=== PATIENT | female | born 2000 | race Two or more races ===

== ENCOUNTER 2025-01-20 08:37 | Outpatient (OUT) | payer MEDICAID, SELFPAY ==
--- OUTSIDE RECORDS SUMMARY | 2024-12-23 13:00 | XMS_ITS | Encounter Summary ---
Author Organization [facility] Address [address] [place] [address] Care Team Providers Care Associate Veterinarian Name Role Phone Tracy Quesada MD Primary Care Provider [phone] Reason for Visit * Reason Comments Routine Visit Encounter Details Date Type Department Care Team (Late st Contact Info) Description 12/23/2024 1:00 PM EDT Routine [facility] [address] [place] [address] Petty Baez, GENA [address] [facility] [place] [address] Second trimester ([facility]); 14 weeks gestation of ([facility]); Screening, , for anatomic survey ([facility]); Ovarian cyst, right Social History Tobacco Use Types Packs/Day Years Used Date Smoking Tobacco: Never Smokeless Tobacco: Never Alcohol Use Standard Drinks/Week Comments Not Currently 0 (1 standard drink = 0.6 oz pur e alcohol) Estimated Date of Delivery Comme nts Yes 05/30/2025 Based on last me nstrual period of 08/23/2024 Sex and Gender Information Value Date Recorded Sex Assigned at Not on file Legal Sex Female 10:12 PM EDT Gender Identity Not on file Sexual Orientation Not on file documented as of this encounter Last Filed Vital Signs Vital Sign Reading Time Taken Comments Blood Pressure 108/68 12/23/2024 1:17 PM EDT Pulse - - Temperature - - Respiratory Rate - - Oxygen Saturation - - Inhaled Oxygen Concentration - - Weight 86.5 kg (190 lb 12.8 oz) 12/23/2024 1:17 PM EDT Height - - Body Mass Index 29.88 11/26/2023 10:35 AM EDT documented in this encounter Progress Notes * Petty Baez NP - 12/23/2024 1:00 PM EDT Reason for Appointment: Patient ID: Gretel Otoole is a 24 y.o. female who presents for Routine Visit Patient presents today for Return OB appointment. MEDICATIONS Current Outpatient Medications Medication Instructions MV-Min-Fe Fum-FA-DHA ( 1 PO) Take by mouth ALLERGIES No Known Allergies PROBLEMS Active Ambulatory Problems Diagnosis Date Noted No Active Ambulatory Problems Resolved Ambulatory Problems Diagnosis Date Noted No Resolved Ambulatory Problems Past Medical History: Diagnosis Date Hypertension HISTORY PAST MEDICAL HISTORY SOCIAL HISTORY Past Medical History: Diagnosis Date Hypertension Social History Tobacco Use Smoking status: Never Smokeless tobacco: Never Substance Use Topics Alcohol use: Not Currently Drug use: Never FAMILY HISTORY No family history on file. SURGICAL HISTORY No past surgical history on file. REVIEW OF SYSTEMS Review of Systems: Review of Systems Constitutional: Negative. HENT: Negative. Eyes: Negative. Respiratory: Negative. Cardiovascular: Negative. Gastrointestinal: Negative. Genitourinary: Negative. Musculoskeletal: Positive for back pain. Patient with complaints of left low back pain Skin: Negative. Neurological: Negative. All other systems reviewed and are negative. Hematological: Negative. Endocrine: Negative. Allergic/Immunologic: Negative. OBJECTIVE Objective: Physical Exam Constitutional: Appearance: Normal appearance. She is well-developed. Cardiovascular: Rate and Rhythm: Normal rate and regular rhythm. Pulmonary: Effort: Pulmonary effort is normal. Breath sounds: Normal breath sounds. Abdominal: General: Bowel sounds are normal. There is no distension. Palpations: Abdomen is soft. Tenderness: There is no abdominal tenderness. There is no guarding or rebound. Musculoskeletal: General: No swelling. Right lower leg: No edema. Left lower leg: No edema. Comments: Tenderness with palpation to left paraspinal muscles without spinous process tenderness. Neurological: Mental Status: She is alert and oriented to person, place, and time. Skin: General: Skin is warm and dry. Psychiatric: Mood and Affect: Mood normal. Behavior: Behavior normal. Vitals and nursing note reviewed. Exam conducted with a voip technician present. Vitals: Estimated body mass index is 29.88 kg/m?? as calculated from the following: Height as of 24: 5' 7 . Weight as of this encounter: 190 lb 12.8 oz. BP: 108/68 Patient's last menstrual period was 08/23/2024. ASSESSMENT & PLAN ICD-10-CM 1. Second trimester ([facility]) Z34.92 POCT urinalysis dipstick manually resulted 2. 14 weeks gestation of ([facility]) Z3A.14 POCT urinalysis dipstick manually resulted 3. Screening, , for anatomic survey ([facility]) Z36.89 US OB 14+ weeks anatomy scan Return OB: Patient presents today for a routine obstetrics appointment. Patient is currently 17w3d . Patient states she is doing well but has complaints of being tired due to current . Patient has verbalizes frequent movement. labor precautions was discussed/given and patient was instructed to perform kick counts three times a day. Orders Placed This Encounter Procedures US OB 14+ weeks anatomy scan POCT urinalysis dipstick manually resulted Follow Up: Patient with left low back pain that is reproducible with palpation. She has no CVA tenderness and no spinous process tenderness. Musculoskeletal low back pain recommend Physical Therapy evaluation and treatment. Patient is to return to office in 4 week for routine OB appointment. Documented by Petty Baez NP on behalf of: Petty Baez NP documented in this encounter Miscellaneous Notes * Addendum Note - Derrick Oneill LPN - 12/23/2024 1:00 PM EDTAddended by: DERRICK ONEILL on: 01/18/2025 03:50 PM Modules accepted: Orders documented in this encounter Plan of Treatment Upcoming Encounters Date Type Department Care Team (Late st Contact Info) Description 01/20/2025 10:20 AM EDT Routine [facility] [address] [place] [address] Petty Baez NP [address] [place] [address] Scheduled Orders Name Type Priority Associated Diagnoses Orde r Schedule US OB 14+ weeks anatomy scan Imaging Routine Screening, , for anatomic survey ([facility]) Expected: 12/23/2024, Expires: 03/24/2025 US Pelvis w/ TV Imaging Routine Ovarian cyst, right Expected: 01/18/2025, Expires: 07/18/2025 documented as of this encounter Visit Diagnoses Diagnosis Second trimester ([facility]) state, incidental 14 weeks gestation of ([facility]) Screening, , for anatomic survey ([facility]) Encounter for anatomic survey Ovarian cyst, right Other and unspecified ovarian cyst documented in this encounter Care Teams Associate Veterinarian Relationship Specialty Start Date End Date Tracy Quesada MD [address] [place] [id number] PCP - General Family Medicine 11/26/23 documented as of this encounter
--- OUTSIDE RECORDS SUMMARY | 2025-01-20 08:40 | XMS_ITS | Patient Health Record ---
Author Organization [employer] Address [address] [place] [address] Care Team Providers Care Sociology Research Assistant Name Role Phone Mandy Ag Primary Care Provider Reason For Referral No Information Plan Of Treatment No Information Insurance Providers Payer Name Payer Address Payer Phone Subscriber Number Group Number Insured Name Patient Relationship to Insured Coverage Start Date Coverage End Date [employer] [place] [address] [place] [address] [id number] YOUSUF MARTINEZ Self - patient is the insured 3 [employer] [facility] [employer] [address] [place] [address] [phone] [id number] YOUSUF MARTINEZ Self - patient is the insured 3 Dental [employer] [place] [address] [place] [address] [id number] YOUSUF MARTINEZ Self - patient is the insured 3 Dental [employer] [facility] [employer] [address] [place] [address] [id number] YOUSUF MARTINEZ Self - patient is the insured 3
--- OUTSIDE RECORDS SUMMARY | 2025-01-20 08:40 | XMS_ITS | Clinical Summary ---
Author Organization [facility] Address [address] [place] [address] Care Team Providers Care Tafe Teacher Name Role Phone Tracy Quesada MD Primary Care Provider [phone] Allergies No known active allergies Medications MV-Min-Fe Fum-FA-DHA ( 1 PO) Take by mouth Active Encounters Date Type Department Care Team Description 01/19/2025 Travel 12/23/2024 1:00 PM ED[place] [address] Petty Baez NP Second trimester ([facility]); 14 weeks gestation of ([facility]); Screening, , for anatomic survey ([facility]); Ovarian cyst, right 12/23/2024 Bamboo flowsheet [facility] [address] [place] [address] Petty Baez NP 12/16/2024 10:00 AM EDT Ancillary Procedure [facility] [address] [place] [address] Ovarian cyst, right 12/09/2024 Travel 12/09/2024 Telephone [facility] [address] [place] [address] Sherita Bowers MA 11/25/2024 Travel 11/15/2024 [place] [phone] Yonas Gold, 11/15/2024 Telephone [facility] [address] [facility] [address] Dinah LeonJABIER 11/05/2024 9:30 AM EDT Initial [facility] [address] [place] [address] [place]: 10w4d 11/05/2024 9:00 AM EDT Ancillary Procedure [facility] [address] [place] [address] Missed menses 11/05/2024 Abstract [facility] [address] [facility] [address] Yonas Gold, 11/02/2024 Travel from Last 3 Months Social History Tobacco Use Types Packs/Day Years Used Date Smoking Tobacco: Never Smokeless Tobacco: Never Tobacco Cessation:Counseling Given: Not Answered Alcohol Use Standard Drinks/Week Comments Not Currently 0 (1 standard drink = 0.6 oz pur e alcohol) Estimated Date of Delivery Comme nts Yes 05/30/2025 Based on last me nstrual period of 08/23/2024 Sex and Gender Information Value Date Recorded Sex Assigned at Not on file Legal Sex Female 10:12 PM EDT Gender Identity Not on file Sexual Orientation Not on file Last Filed Vital Signs Vital Sign Reading Time Taken Comments Blood Pressure 108/68 12/23/2024 1:17 PM EDT Pulse 70 11/26/2023 10:35 AM EDT Temperature - - Respiratory Rate - - Oxygen Saturation - - Inhaled Oxygen Concentration - - Weight 86.5 kg (190 lb 12.8 oz) 12/23/2024 1:17 PM EDT Height 170.2 cm (5' 7 ) 11/26/2023 10:3 5 AM EDT Body Mass Index 29.88 11/26/2023 10:35 AM EDT Plan of Treatment Upcoming Encounters Date Type Department Care Team (Late st Contact Info) Description 01/20/2025 10:20 AM EDT Routine [facility] [address] [facility] [place] [address] Petty Baez, GENA [address] [facility] [place] [address] Procedures Procedure Name Priority Date/Time Associated Diagnosis Comments US PELVIS Routine 12/16/2024 10:42 AM EDT Ovarian cyst, right POCT , URINE Routine 11/05/2024 9:53 AM EDT Missed menses POCT URINALYSIS DIPSTICK Routine 11/05/2024 9:52 AM EDT Missed menses US OB TRANSVAGINAL Routine 11/05/2024 9: 14 AM EDT Missed menses from Last 3 Months Results * US pelvis (12/16/2024 10:42 AM EDT) Anatomical Region Laterality Modality Pelvis Ultrasound 12/16/2024 2:26 PM EDT Impressions 12/16/2024 2:54 PM EDT Right ovarian cyst, slight decrease in size from prior exam November 05, 2024. TRANSCRIBED BY: ELECTRONICALLY SIGNED BY: Geo Lopez MD Narrative 12/16/2024 2:54 PM EDT FINDINGS: Uterus 14.3 x 9.4 x 10.5 cm Right Ovary 6.0. x 4.1 x 5.4 cm Left Ovary 2.8 x 2.4 x 1.8 cm A single viable intrauterine gestational sac with a pole, ultrasound worksheet does not demonstrate evidence of lack of or cardiac activity. Normal placental formation. Right ovarian 6.2 x 3.7 x 5.4 cm cyst, no soft tissue component ,shadowing or increase in vascularity. Procedure Note Geo Lopez MD - 12/16/2024 FINDINGS: Uterus 14.3 x 9.4 x 10.5 cm Right Ovary 6.0. x 4.1 x 5.4 cm Left Ovary 2.8 x 2.4 x 1.8 cm A single viable intrauterine gestational sac with a pole, ultrasoundworksheet does not demonstrate evidence of lack of or cardiacactivity. Normal placental formation. Right ovarian 6.2 x 3.7 x 5.4 cmcyst, no soft tissue component ,shadowing or increase in vascularity. IMPRESSION: Right ovarian cyst, slight decrease in size from prior exam October. TRANSCRIBED BY: ELECTRONICALLY SIGNED BY: Geo Lopez MD us Yonas Alla DO IMG US PROCEDURES Final Result * (ABNORMAL) POCT , urine manually resulted (11/05/2024 9:53 AM EDT) Preg Test, Ur Positive Negative Urine 11/05/2024 9:53 AM EDT us Yonas Alla DO POINT OF CARE TEST ENTER/EDIT OR DERABLES Final Result * (ABNORMAL) POCT urinalysis dipstick manually resulted (11/05/2024 9:52 AM EDT) Color, UA Yellow Clarity, UA Clear Glucose, UA Negative Negative - 2000(110) ++++ mg/dL Bilirubin, UA Negative Negative - 4(70) +++ mg/dL Ketones, UA Negative Negative - 160(16) ++++ mg/dL Spec Grav, UA 1.020 1 - 1.03 Blood, UA Negative Negative - 50 Tal/mcL pH, UA 6.0 5 - 9 Protein, UA Trace Negative - 2000(20) ++++ mg/dL Urobilinogen, UA 0.2 0.2 - 12 mg/dL Leukocytes, UA Moderate Negative - 500+++ Pepe/mcL Nitrite, UA Negative Negative - Positive Urine 11/05/2024 9:52 AM EDT us Yonas Alla DO POINT OF CARE TEST ENTER/EDIT OR DERABLES Final Result * US OB transvaginal (11/05/2024 9:14 AM EDT) Anatomical Region Laterality Modality Body Ultrasound 11/09/2024 10:5 3 AM EDT Impressions 11/09/2024 11:24 AM EDT 1. Findings consistent with a live intrauterine gestation, current sonographic age of 10 weeks and 1 days resulting in an estimated date of delivery of June 03, 2025. 2. Right ovarian 9.0 cm benign cyst. TRANSCRIBED BY: ELECTRONICALLY SIGNED BY: Geo Lopez MD [facility] 11/09/2024 11:24 AM EDT FINDINGS: A single intrauterine gestational sac is present. No subchorionic hemorrhage. A single pole is present. Normal heart rate at 182 beats per minute. Yolk sac also is seen. Current sonographic age is 10 weeks and 1 days based on the crown-rump length measurement of 3.1 cm. Based on this age, current estimated date of delivery is June 03, 2025. No pelvic fluid or adnexal mass present. Cervical length is 3.5cm. Small amount of pelvic fluid. 7.5 x 9.0 cm right ovarian cyst, thin septation, no significant soft tissue component or shadowing. Procedure Note Geo Lopez MD - 11/09/2024 FINDINGS: A single intrauterine gestational sac is present. No subchorionichemorrhage. A single pole is present. Normal heart rate at182 beats per minute. Yolk sac also is seen. Current sonographic age is10 weeks and 1 days based on the crown-rump length measurement of 3.1 cm.Based on this age, current estimated date of delivery is May. No pelvic fluid or adnexal mass present. Cervical length is3.5cm. Small amount of pelvic fluid. 7.5 x 9.0 cm right ovarian cyst, thinseptation, no significant soft tissue component or shadowing. IMPRESSION: 1. Findings consistent with a live intrauterine gestation, currentsonographic age of 10 weeks and 1 days resulting in an estimated date ofdelivery of June 03, 2025. 2. Right ovarian 9.0 cm benign cyst. TRANSCRIBED BY: ELECTRONICALLY SIGNED BY: Geo Lopez MD us Yonas Gold DO [facility] OB US PROCEDURES Final Resul t from Last 3 Months Insurance MEDICAID [place] Care Teams Tafe Teacher Relationship Specialty Start Date End Date Tracy Quesada MD [address] [place] [phone] PCP - General Family Medicine 11/26/23
--- OUTSIDE RECORDS SUMMARY | 2025-01-20 08:40 | XMS_ITS | Encounter Summary ---
Author Organization [facility] Address [address] [place] [address] Care Team Providers Care Chicken Raiser Name Role Phone Tracy Quesada MD Primary Care Provider [phone] Encounter Details Date Type Department Care Team (Late Contact Info) Description 11/05/2024 Abstract [facility] [address] [place] [address] [place] [address] Yonas Gold DO [address] [facility] [address] [place], [place] [address] Social History Tobacco Use Types Packs/Day Years [...] on file documented as of this encounter Plan of Treatment Upcoming Encounters Date Type Department Care Team (Late st Contact Info) Description 01/20/2025 10:20 AM EDT Routine [facility] [address] [place], [place] [address] [address] Petty Baez, GENA [address] [facility] [place] [address] documented as of this encounter Visit Diagnoses Not on filedocumented in this encounter Care Teams Chicken Raiser Relationship Specialty Start Date End Date Tracy Quesada MD [address] [facility] [place] [phone] PCP - General Family Medicine 11/26/23 documented as of this encounter
--- OUTSIDE RECORDS SUMMARY | 2025-01-20 08:40 | XMS_ITS | Encounter Summary ---
Author Organization [facility] Address [address] [facility] [place] [address] Care Team Providers Care Christian Science Nurse Name Role Phone Tracy Quesada MD Primary Care Provider [phone] Encounter Details Date Type Department Care Team (Latest Contact Info) Description 01/19/2025 Travel Social History Tobacco Use Types Packs/Day Years [...] EDT Routine [facility] [address] [facility] [place] [address] Petty Baez NP [address] [facility] [place] [address] documented as of this encounter Visit Diagnoses Not on filedocumented in this encounter Care Teams Christian Science Nurse Relationship Specialty Start Date End Date Tracy Quesada MD [address] [place] [phone] PCP - General Family Medicine 11/26/23 documented as of this encounter
--- OUTSIDE RECORDS SUMMARY | 2025-01-20 08:40 | XMS_ITS | Encounter Summary ---
Author Organization [facility] Address [address] [facility] [place] [address] Care Team Providers Care Marker Delivery Name Role Phone Tracy Quesada MD Primary Care Provider [phone] Encounter Details Date Type Department Care Team (Late Contact Info) Description 11/26/2023 Abstract [facility] [address] [place] [address] Celso Rice, DPM FACFAS [address] [place] [id number] Social History Tobacco Use Types Packs/Day Years Used Date Smoking Tobacco: Never Smokeless Tobacco: Never Comments Unknown Sex and Gender Information Value Date Recorded Sex Assigned at Not on file Legal Sex Female 10:12 PM EDT Gender Identity Not on file Sexual Orientation Not on file documented as of this encounter Plan of Treatment Upcoming Encounters Date Type Department Care Team (Late Contact Info) Description 01/20/2025 10:20 AM EDT Routine [facility] [address] [facility] [place] [address] Petty Baez NP [address] [facility] [place] [address] documented as of this encounter Visit Diagnoses Not on filedocumented in this encounter Care Teams Marker Delivery Relationship Specialty Start Date End Date Tracy Quesada MD [address] [place] [address] PCP - General Family Medicine 11/26/23 documented as of this encounter
--- NOTE | 2025-01-20 08:42 | US_ITS ---
The [address] [address] Patient Name: YOUSUF MARTINEZ MRN: [facility]:[id number] date: 2000 Sex: F Assigned Patient Location: Current Patient Location: Accession/Order Number: [id number] Exam Date: 01/20/2025 08:43 Report Date: 01/20/2025 09:53 At the request of: TOSHIA TATE Procedure: US OB cervical length CLINICAL DATA: Anatomy survey COMPARISON: None ULTRASOUND OB ANATOMY There is a single live intrauterine gestation in cephalic presentation. There is cardiac and somatic activity with heart rate of 165 bpm. The amniotic fluid volume is subjectively normal. The placenta is posterior and fundal . It is normal in appearance. The neural axis and all 4 extremities were surveyed by the aviation project engineer and no abnormalities were detected. The stomach, bladder, kidneys, four-chamber heart with right and left ventricular outflow tracts, diaphragm, facial features and female gender are seen. The following measurements were obtained: Biparietal diameter 4.8 cm 20 weeks 4 days 19 % Head circumference 18.3 cm 20 weeks 5 days 13% Abdominal circumference 15.9 cm 21 weeks 0 days 31% Femur length 3.2 cm 20 weeks 0 days 5% The composite ultrasound age based on these measurements is 20 weeks 4 days +/- 1 week 3 days. The estimated date of delivery is 06/05/2025. The weight is approximately 13 ounces +/- 2 ounces (10%). US/US OB anatomy IMPRESSION: SINGLE LIVE INTRAUTERINE GESTATION WITH ULTRASOUND AGE OF 20 WEEKS 4 DAYS. ULTRASOUND OB CERVICAL LENGTH The cervix was evaluated with the transvaginal probe. It is closed and measures present 4.7 cm in length. There is no evidence of previa. IMPRESSION: NORMAL CLOSED CERVIX. Impression dictated by: Brenda Gibbs M.D. 01/20/2025 9:53 AM Dictation Location: [place] [address] Electronically authenticated by: [id number] Y Date: 01/20/2025 09:53
--- NOTE | 2025-01-20 08:42 | US_ITS ---
The [address] [address] Patient Name: YOUSUF MARITNEZ MRN: [facility]:[id number] date: 2000 Sex: F Assigned Patient Location: Current Patient Location: Accession/Order Number: [id number] Exam Date: 01/20/2025 08:43 Report Date: 01/20/2025 09:53 At the request of: TOSHIA TATE Procedure: US OB cervical length CLINICAL DATA: Anatomy survey COMPARISON: None ULTRASOUND OB ANATOMY There is a single live intrauterine gestation in cephalic presentation. There is cardiac and somatic activity with heart rate of 165 bpm. The amniotic fluid volume is subjectively normal. The placenta is posterior and fundal . It is normal in appearance. The neural axis and all 4 extremities were surveyed by the dairy management specialist and no abnormalities were detected. The stomach, bladder, kidneys, four-chamber heart with right and left ventricular outflow tracts, diaphragm, facial features and female gender are seen. The following measurements were obtained: Biparietal diameter 4.8 cm 20 weeks 4 days 19 % Head circumference 18.3 cm 20 weeks 5 days 13% Abdominal circumference 15.9 cm 21 weeks 0 days 31% Femur length 3.2 cm 20 weeks 0 days 5% The composite ultrasound age based on these measurements is 20 weeks 4 days +/- 1 week 3 days. The estimated date of delivery is 06/05/2025. The weight is approximately 13 ounces +/- 2 ounces (10%). US/US OB cervical length IMPRESSION: SINGLE LIVE INTRAUTERINE GESTATION WITH ULTRASOUND AGE OF 20 WEEKS 4 DAYS. ULTRASOUND OB CERVICAL LENGTH The cervix was evaluated with the transvaginal probe. It is closed and measures present 4.7 cm in length. There is no evidence of previa. IMPRESSION: NORMAL CLOSED CERVIX. Impression dictated by: Brenda Gibbs M.D. 01/20/2025 9:53 AM Dictation Location: [place] [address] Electronically authenticated by: [id number] Y Date: 01/20/2025 09:53
== END 2025-01-20 08:38 | disposition home or self-care (01) ==
LOC: US 08:37
PROVIDERS: PCP Family Medicine; Visit Provider Nurse Practitioner Family
DX: Z34.92 Encounter for supervision of normal pregnancy, unspecified, second trimester (principal); Z36.89 Encounter for other specified antenatal screening; N83.201 Unspecified ovarian cyst, right side; Z3A.20 20 weeks gestation of pregnancy
CPT/HCPCS: 76805; 76817; 88175

== ENCOUNTER 2025-01-20 20:25 | Outpatient (REF) | payer MEDICAID, SELFPAY ==
--- OUTSIDE RECORDS SUMMARY | 2024-12-23 13:00 | XMS_ITS | Encounter Summary ---
Author Organization [facility] Address [address] [place] [address] Care Team Providers Care Formula Weigher Name Role Phone Tracy Quesada MD Primary Care Provider [phone] Reason for Visit * Reason Comments Routine Visit Encounter Details Date Type Department Care Team (Late st Contact Info) Description 12/23/2024 1:00 PM EDT Routine [facility] [address] [place] [address] Petty Baez, GENA [address] [facility] [place] [address] Second trimester ([facility]); 14 weeks gestation of ([facility]); Screening, , for anatomic survey ([facility]); Ovarian cyst, right Social History Tobacco Use [...] nursing note reviewed. Exam conducted with a welding machine operator resistance present. Vitals: Estimated body mass index is 29.88 kg/m?? as calculated from the following: Height as of 24: 5' 7 . Weight as of this encounter: 190 lb 12.8 oz. BP: 108/68 Patient's last menstrual period was 08/23/2024. ASSESSMENT & PLAN ICD-10-CM 1. Second trimester ([facility]) Z34.92 POCT urinalysis dipstick manually resulted 2. 14 weeks gestation of ([facility]) Z3A.14 POCT urinalysis dipstick manually resulted 3. Screening, , for anatomic survey ([facility]) Z36.89 US OB 14+ weeks anatomy scan [...] Care Team (Late st Contact Info) Description 02/21/2025 1:20 PM EST Routine [facility] [address] [facility] [place] [phone] Yonas Gold DO [address] [place] [address] Scheduled Orders Name Type Priority Associated Diagnoses Orde r Schedule US OB 14+ weeks anatomy scan Imaging Routine Screening, , for anatomic survey ([facility]) Expected: 12/23/2024, Expires: 03/24/2025 US Pelvis w/ TV Imaging Routine Ovarian cyst, right Expected: 01/18/2025, Expires: 07/18/2025 documented as of this encounter Visit Diagnoses Diagnosis Second trimester ([facility]) state, incidental 14 weeks gestation of ([facility]) Screening, , for anatomic survey ([facility]) Encounter for anatomic survey Ovarian cyst, right Other and unspecified ovarian cyst documented in this encounter Care Teams Formula Weigher Relationship Specialty Start Date End Date Tracy Quesada MD [address] [facility] [place] [address] PCP - General Family Medicine 11/26/23 documented as of this encounter
--- OUTSIDE RECORDS SUMMARY | 2025-01-20 10:20 | XMS_ITS | Encounter Summary ---
Author Organization [facility] Address [address] [place] [address] Care Team Providers Care Scientific Research Manager Name Role Phone Tracy Quesada MD Primary Care Provider [phone] Reason for Visit * Reason Comments Routine Visit Encounter Details Date Type Department Care Team (Late Contact Info) Description 01/20/2025 10:20 AM EDT Routine [facility] [address] [place] [address] Petty Baez, GENA [address] [place] [address] 21 weeks gestation of ([facility]); Second trimester ([facility]) Social History Tobacco Use Types Packs/Day Years [...] Sign Reading Time Taken Comments Blood Pressure 128/82 01/20/2025 9:58 AM EDT Pulse - - Temperature - - Respiratory Rate - - Oxygen Saturation - - Inhaled Oxygen Concentration - - Weight 89 kg (196 lb 4 oz) 01/20/2025 9:58 AM ED T Height - - Body Mass Index 30.74 11/26/2023 10:35 AM EDT documented in this encounter Progress Notes * Petty Baez NP - 01/20/2025 10:20 AM EDT Reason for Appointment: Patient ID: Gretel [...] Problems Past Medical History: Diagnosis Date Hypertension Lower back pain HISTORY PAST MEDICAL HISTORY SOCIAL HISTORY Past Medical History: Diagnosis Date Hypertension Lower back pain Social History Tobacco Use Smoking status: Never Smokeless tobacco: Never Substance Use Topics Alcohol use: Not Currently Drug use: Never FAMILY HISTORY No family history on file. SURGICAL HISTORY No past surgical history on file. REVIEW OF SYSTEMS Review of Systems: Review of Systems Constitutional: Negative. HENT: Negative. Eyes: Negative. Respiratory: Negative. Cardiovascular: Negative. Gastrointestinal: Negative. Genitourinary: Negative. Musculoskeletal: Negative. Skin: Negative. Neurological: Negative. All other systems [...] guarding or rebound. Musculoskeletal: General: No swelling. Normal range of motion. Right lower leg: No edema. Left lower leg: No edema. Neurological: Mental Status: She is alert and oriented to person, place, and time. Skin: General: Skin is warm and dry. Psychiatric: Mood and Affect: Mood normal. Behavior: Behavior normal. Vitals and nursing note reviewed. Exam conducted with a pharmacy informatics manager present. Vitals: Estimated body mass index is 30.74 kg/m?? as calculated from the following: Height as of 11/26/23: 5' 7 . Weight as of this encounter: 196 lb 4 oz. BP: 128/82 Patient's last menstrual period was 08/23/2024. ASSESSMENT & PLAN ICD-10-CM 1. 21 weeks gestation of ([facility]) Z3A.21 POCT urinalysis dipstick manually resulted 2. Second trimester ([facility]) Z34.92 SURESWAB(R) ADVANCED VAGINITIS PLUS, TMA CHLAMYDIA TRACHOMATIS (GENITO/STI) Neisseria gonorrhea DNA probe, direct Pap Smear Return OB: Patient presents today for a routine obstetrics appointment. Patient is currently 21w3d . Patient states she is doing well but has complaints of being tired due to current . Patient has verbalizes frequent movement. labor precautions was discussed/given and patient was instructed to perform kick counts three times a day. Orders Placed This Encounter Procedures CHLAMYDIA TRACHOMATIS (GENITO/STI) Neisseria gonorrhea DNA probe, direct POCT urinalysis dipstick manually resulted Follow Up: Patient is to return to office in 4 week for routine OB appointment. Documented by Petty Baez NP on behalf of: Petty Baez NP documented in this encounter Plan of Treatment Upcoming Encounters Date Type Department Care Team (Late st Contact Info) Description 02/21/2025 1:20 PM EST Routine [facility] [address] [place] [phone] Yonas Gold DO [address] [place] [address] Scheduled Orders Name Type Priority Associated Diagnoses Order Schedule SURESWAB(R) ADVANCED VAGINITIS PLUS, TMA Pathology and Cytology Routine Second trimester ([facility]) Ordered: 01/20/2025 CHLAMYDIA TRACHOMATIS (GENITO/STI) Lab Routine Second trimester ([facility]) Ordered: 01/20/2025 Neisseria gonorrhea DNA probe, direct Lab Routine Second trimester ([facility]) Ordered: 01/20/2025 Pap Smear Pathology and Cytology Routine Second trimester ([facility]) Ordered: 01/20/2025 documented as of this encounter Procedures Procedure Name Priority Date/Time Associated Diagnosis Comments POCT URINALYSIS DIPSTICK Routine 01/20/2025 10:22 AM EDT 21 weeks gestation of ([facility]) documented in this encounter Results * (ABNORMAL) POCT urinalysis dipstick manually resulted (01/20/2025 10:22 AM EDT) Color, UA Straw Clarity, UA Clear Glucose, UA Negative Negative - 2000(110) ++++ mg/dL Bilirubin, UA Negative Negative - 4(70) +++ mg/dL Ketones, UA Negative Negative - 160(16) ++++ mg/dL Spec Grav, UA 1.010 1 - 1.03 Blood, UA Negative Negative - 50 Tal/mcL pH, UA 7.5 5 - 9 Protein, UA Negative Negative - 2000(20) ++++ mg/dL Urobilinogen, UA 2.0 0.2 - 12 mg/dL Leukocytes, UA 2+ Negative - 500+++ Pepe/mcL Nitrite, UA Negative Negative - Positive Urine 01/20/2025 10:2 2 AM EDT Petty Baez NP POINT OF CARE TEST ENTER/EDIT ORDERABLES Final Result documented in this encounter Visit Diagnoses Diagnosis 21 weeks gestation of ([facility]) Second trimester ([facility]) state, incidental documented in this encounter Care Teams Scientific Research Manager Relationship Specialty Start Date End Date Tracy Quesada MD [address] [place], [place] [address] [phone] PCP - General Family Medicine 11/26/23 documented as of this encounter
--- OUTSIDE RECORDS SUMMARY | 2025-01-20 20:28 | XMS_ITS ---
Author Organization [facility] Source Produ ction (ClinicalSummary Clone) Address Unknown Care Team Providers Care Siebel Developer Name Role Phone Unavailable Primary Care Physician Unavailab le Results * [UNITY] ANEUPLOIDY NIPT Performed by: [email or web address] Component Value Range Date Fraction 4.8% 11/17/2024 03 :07 am UT Rh(D) NIPT RhD DETECTED 11/17/2024 03:0 7 am UTC Sex Chromosome Aneuploidy NOT DETECTED 03:07 am UTC Monosomy X LOW RISK <1 in 10,000 2024 03:07 am UTC Trisomy 13 LOW RISK <1 in 10,000 2024 03:07 am UTC Trisomy 18 LOW RISK <1 in 10,000 2024 03:07 am UTC Trisomy 21 LOW RISK <1 in 10,000 2024 03:07 am UTC Sex FEMALE 11/17/2024 03:0 7 am UTC Gestation CARPIO 11/18/19 03:07 am UT For detailed report, see PDF See PDF 11/17/2024 03:07 am UTC 11/17/2024 03:0 7 am UT Social History Observation Value Start Date End Date
--- OUTSIDE RECORDS SUMMARY | 2025-01-20 20:29 | XMS_ITS | Encounter Summary ---
Author Organization [facility] Address [address] [facility] [place] [address] Care Team Providers Care Manager Transportation Name Role Phone Tracy Quesada MD Primary Care Provider [phone] Encounter Details Date Type Department Care Team (Late Contact Info) Description 11/26/2023 Abstract [facility] [address] [place] [phone] Celso Rice, DPM FACFAS [address] [place] [id number] Social History Tobacco Use Types Packs/Day Years [...] Department Care Team (Late Contact Info) Description 02/21/2025 1:20 PM EST Routine [facility] [address] [place] [address] Yonas Gold DO [address] [place] [id number] documented as of this encounter Visit Diagnoses Not on filedocumented in this encounter Care Teams Manager Transportation Relationship Specialty Start Date End Date Tracy Quesada MD [address] [place] [address] PCP - General Family Medicine 11/26/23 documented as of this encounter
--- OUTSIDE RECORDS SUMMARY | 2025-01-20 20:29 | XMS_ITS | Encounter Summary ---
Author Organization [facility] Address [address] [place] [address] Care Team Providers Care Boring Machine Operator Vertical Name Role Phone Tracy Quesada MD Primary Care Provider [phone] Encounter Details Date Type Department Care Team (Late Contact Info) Description 11/05/2024 Abstract [facility] [address] [place] [address] [place] [address] Yonas Gold DO [facility] [address] [place], [place] [address] Social History Tobacco Use Types Packs/Day Years [...] Info) Description 02/21/2025 1:20 PM EST Routine [facility] [place] [phone] Yonas Gold DO [facility] [address] [place], [place] [address] documented as of this encounter Visit Diagnoses Not on filedocumented in this encounter Care Teams Boring Machine Operator Vertical Relationship Specialty Start Date End Date Tracy Quesada MD [address] [facility] [place] [phone] PCP - General Family Medicine 11/26/23 documented as of this encounter
--- OUTSIDE RECORDS SUMMARY | 2025-01-20 20:29 | XMS_ITS | Encounter Summary ---
Author Organization [facility] Address [address] [facility] [place] [address] Care Team Providers Care Investigations Consultant Name Role Phone Tracy Quesada MD Primary Care Provider [phone] Encounter Details Date Type Department Care Team [...] Routine [facility] [address] [place] [address] Yonas Gold DO [address] [facility] [place] [address] documented as of this encounter Visit Diagnoses Not on filedocumented in this encounter Care Teams Investigations Consultant Relationship Specialty Start Date End Date Tracy Quesada MD [address] [place] [phone] PCP - General Family Medicine 11/26/23 documented as of this encounter
--- OUTSIDE RECORDS SUMMARY | 2025-01-20 20:29 | XMS_ITS ---
Author Organization [facility] Source Produ ction (ClinicalSummary Clone) Address Unknown Care Team Providers Care Ear Nose Throat Surgeon Name Role Phone Unavailable Primary Care Physician Unavailab le Results * [UNITY] CARRIER SCREEN Performed by: [email or web address] Component Value Range Date Fraction 3.7% 12/07/2024 06 :57 am [facility] Alpha-Thalassemia NIPT result LOW RISK 1 in 100,000 ( paternal ethnicity); 1 in 100,000 (General population) 12/07/2024 06:57 am UT Sickle Cell Disease/Beta-Thalassemia/Hemo globinopathies carrier screen NEGATIVE 12/07/2024 06:57 am UT Alpha-Thalassemia carrier screen POSITIVE HBA2: c.95+2_95+6del 12/07/2024 06:57 am UT Cystic Fibrosis carrier screen NEGATIVE 12/07/2024 06:57 am UT Spinal Muscular Atrophy carrier screen NEGATIVE 2 SMN1 copies, SNP not present 12/07/2024 06:57 am [facility] For detailed report, see PDF See PDF 12/07/2024 06:57 am UT 12/07/2024 06:5 7 am [facility] Social History Observation Value Start Date End Date
--- OUTSIDE RECORDS SUMMARY | 2025-01-20 20:29 | XMS_ITS | Encounter Summary ---
Author Organization [facility] Address [address] [place] [address] Care Team Providers Care Beef Ribber Name Role Phone Tracy Quesada MD Primary Care Provider [phone] Encounter Details Date Type Department Care Team (Late st Contact Info) Description 01/20/2025 Clinisync Result Encounter [facility] External Department Unsolicited Toshia Baez, ASSURANCE ENGINEER [address] [facility] [place] [address] Social History Tobacco Use Types Packs/Day Years [...] EST Routine [facility] [address] [place] [address] Yonas Gold DO [address] [place], [place] [phone] documented as of this encounter Procedures Procedure Name Priority Date/Time Associated Diagnosis Comments US OB CERVICAL LENGTH 01/20/2025 9:53 AM EDT documented in this encounter Results * US OB CERVICAL LENGTH (01/20/2025 9:53 AM EDT) Anatomical Region Laterality Modality Other 01/20/2025 9:53 AM EDT Narrative 01/20/2025 9:56 [place] [address] Ultrasound Report Signed Patient: YOUSUF MARTINEZ MR#: [id number] : 2000 Acct:[id number] Age/Sex: 24 / F ADM Date: 01/20/25 Loc: US Attending Dr: Toshia Baez Ordering Physician: Toshia Baez Date of Service: 01/20/25 Procedure(s): US OB cervical length Accession Number(s): [id number] cc: Toshia Baez; Tracy Quesada D.O. [place] [address] Patient Name: YOUSUF MARTINEZ MRN: [id number] date: 2000 Sex: F Assigned Patient Location: US Current Patient Location: US Accession/Order Number: [id number] Exam Date: 01/20/2025 08:43 Report Date: 01/20/2025 09:53 At the request of: TOSHIA BAEZ Procedure: US OB cervical length CLINICAL DATA: Anatomy survey COMPARISON: None ULTRASOUND OB ANATOMY There is a single live intrauterine gestation in cephalic presentation. There is cardiac and somatic activity with heart rate of 165 bpm. The amniotic fluid volume is subjectively normal. The placenta is posterior and fundal . It is normal in appearance. The neural axis and all 4 extremities were surveyed by the technology architect and no abnormalities were detected. The stomach, bladder, kidneys, four-chamber heart with right and left ventricular outflow tracts, diaphragm, facial features and female gender are seen. The following measurements were obtained: Biparietal diameter 4.8 cm 20 weeks 4 days 19 % Head circumference 18.3 cm 20 weeks 5 days 13% Abdominal circumference 15.9 cm 21 weeks 0 days 31% Femur length 3.2 cm 20 weeks 0 days 5% The composite ultrasound age based on these measurements is 20 weeks 4 days +/- 1 week 3 days. The estimated date of delivery is 06/05/2025. The weight is approximately 13 ounces +/- 2 ounces (10%). US/US OB cervical length IMPRESSION: SINGLE LIVE INTRAUTERINE GESTATION WITH ULTRASOUND AGE OF 20 WEEKS 4 DAYS. ULTRASOUND OB CERVICAL LENGTH The cervix was evaluated with the transvaginal probe. It is closed and measures present 4.7 cm in length. There is no evidence of previa. IMPRESSION: NORMAL CLOSED CERVIX. Impression dictated by: Brenda Gibbs M.D. 01/20/2025 9:53 AM Dictation Location: [place] [address] Electronically authenticated by: [id number] Y Date: 01/20/2025 09:53 Dictated By: Brenda Gibbs M.D. Signed By: 01/20/2556 DD/ 2 TD/TT: Plant Specialist: Procedure Note Radiology, Radiologist, MD - 01/20/2025 [place] [address] Ultrasound Report Signed Patient: YOUSUF MARTINEZ [facility]#: [id number] : 2000Acct:[id number] Age/Sex: 24 / FADM Date: 01/20/25 Loc: Attending Dr: Toshia Baez Ordering Physician: Toshia Baez Date of Service: 01/20/25 Procedure(s): US OB cervical length Accession Number(s): [id number] cc: Toshia Baez; Tracy Quesada D.O. The [place] [id number] Patient Name: YOUSUF MARTINEZ MRN: [id number] date: 2000 Sex: F Assigned Patient Location: US Current Patient Location: US Accession/Order Number: [id number] Exam Date: 01/20/2025 08:43 Report Date: 01/20/2025 09:53 At the request of: TOSHIA BAEZ Procedure: US OB cervical length CLINICAL DATA: Anatomy survey COMPARISON: None ULTRASOUND OB ANATOMY There is a single live intrauterine gestation in cephalic presentation.There is cardiac and somatic activity with heart rate of 165 bpm. The amniotic fluid volume is subjectively normal. The placenta is posteriorand fundal . It is normal in appearance. The neural axis and all 4extremities were surveyed by the technology architect and no abnormalities were detected. The stomach, bladder, kidneys, four-chamber heart with right and left ventricular outflow tracts, diaphragm, facial features and female genderare seen. The following measurements were obtained: Biparietal diameter 4.8 cm 20 weeks 4 days 19 % Head circumference 18.3 cm 20 weeks 5 days 13% Abdominal circumference 15.9 cm 21 weeks 0 days 31% Femur length 3.2 cm 20 weeks 0 days 5% The composite ultrasound age based on these measurements is 20 weeks 4days +/- 1 week 3 days. The estimated date of delivery is 06/05/2025. Thefetal weight is approximately 13 ounces +/- 2 ounces (10%). US/US OB cervical length IMPRESSION: SINGLE LIVE INTRAUTERINE GESTATION WITH ULTRASOUND AGE OF 20 WEEKS 4 DAYS. ULTRASOUND OB CERVICAL LENGTH The cervix was evaluated with the transvaginal probe. It is closed and measures present 4.7 cm in length. There is no evidence of previa. IMPRESSION: NORMAL CLOSED CERVIX. Impression dictated by: Brenda Gibbs M.D. 01/20/2025 9:53 AM Dictation Location: [place] [address] Electronically authenticated by: [id number] Y Date: 9:53 Dictated By: Brenda Gibbs M.D. Signed By:01/20/25 0956 DD/ TD/TT: Plant Specialist: Toshia Baez ASSURANCE ENGINEER [facility] Final Resul t documented in this encounter Visit Diagnoses Not on filedocumented in this encounter Care Teams Beef Ribber Relationship Specialty Start Date End Date Tracy Quesada MD [address] [place] [phone] PCP - General Family Medicine 11/26/23 documented as of this encounter
--- OUTSIDE RECORDS SUMMARY | 2025-01-20 20:29 | XMS_ITS | Clinical Summary ---
Author Organization [facility] Address [address] [place] [address] Care Team Providers Care Office Copy Selector Name Role Phone Tracy Quesada MD Primary Care Provider [phone] Allergies No known active allergies Medications MV-Min-Fe Fum-FA-DHA ( 1 PO) Take by mouth Active Encounters Date Type Department Care Team Description 01/20/2025 10:20 AM ED[place] [address] Petty Baez NP 21 weeks gestation of ([facility]); Second trimester ([facility]) 01/20/2025 Clinisync Result Encounter [facility]OM[facility] External Department Unsolicited Petty Baez NP 01/20/2025 Clinisync Result Encounter NOMS External Department Unsolicited Petty Baez NP 01/20/2025 Bamboo flowsheet [facility] [place] [address] Petty Baez NP 01/19/2025 Travel 12/23/2024 1:00 [place] [address] Petty Baez NP Second trimester ([facility]); 14 weeks gestation of ([facility]); Screening, , for anatomic survey ([facility]); Ovarian cyst, right 12/23/2024 Bamboo flowsheet [facility] [address] [place] [address] Petty Baez NP 12/16/2024 10:00 AM EDT Ancillary Procedure [facility] [address] [place] [address] Ovarian cyst, right 12/09/2024 Travel 12/09/2024 Telephone [facility] [address] [place] [address] Sherita Bowers, KHADIJAH 11/25/2024 Travel 11/15/2024 Telephone [facility] [address] [place] [address] Yonas Gold, 11/15/2024 Telephone [facility] [address] [place] [address] Dinah Leon LPN 11/05/2024 9:30 AM EDT Initial [facility] [address] [place] [phone] GA: 10w4d 11/05/2024 9:00 AM EDT Ancillary Procedure [facility] [address] [place] [address] [phone] Missed menses 11/05/2024 Abstract [facility] [address] [place] [address] Yonas Gold, DO 11/02/2024 Travel from Last 3 Months Social [...] Pressure 128/82 01/20/2025 9:58 AM EDT Pulse 70 11/26/2023 10:35 AM EDT Temperature - - Respiratory Rate - - Oxygen Saturation - - Inhaled Oxygen Concentration - - Weight 89 kg (196 lb 4 oz) 01/20/2025 9:58 AM ED T Height 170.2 cm (5' 7 ) 11/26/2023 10:35 AM EDT Body Mass Index 30.74 11/26/2023 10:35 AM EDT Plan of Treatment Upcoming Encounters Date Type Department Care Team (Late st Contact Info) Description 02/21/2025 1:20 PM EST Routine [facility] [address] [place] [address] Yonas Gold DO [address] [facility] [place] [address] Procedures Procedure Name Priority Date/Time Associated Diagnosis Comments POCT URINALYSIS DIPSTICK Routine 01/20/2025 10:22 AM EDT 21 weeks gestation of ([facility]) US OB CERVICAL LENGTH 01/20/2025 9:53 AM EDT US OB ANATOMY 01/20/2025 9:53 AM EDT US PELVIS Routine 12/16/2024 10:42 AM EDT Ovarian cyst, right POCT , URINE Routine 11/05/2024 9:53 AM EDT Missed menses POCT URINALYSIS DIPSTICK Routine 11/05/2024 9:52 AM EDT Missed menses US OB TRANSVAGINAL Routine 11/05/2024 9: 14 AM EDT Missed menses from Last 3 Months Results * (ABNORMAL) POCT urinalysis dipstick manually resulted (01/20/2025 10:22 AM EDT) Only the most recent of2 resultswithin the time period is included. Color, UA Straw Clarity, UA Clear Glucose, UA Negative Negative - 1999(110) ++++ mg/dL Bilirubin, UA Negative Negative - 4(70) +++ mg/dL Ketones, UA Negative Negative - 160(16) ++++ mg/dL Spec Grav, UA 1.010 1 - 1.03 Blood, UA Negative Negative - 50 Tal/mcL pH, UA 7.5 5 - 9 Protein, UA Negative Negative - 1999(20) ++++ mg/dL Urobilinogen, UA 2.0 0.2 - 12 mg/dL Leukocytes, UA 2+ Negative - 500+++ Pepe/mcL Nitrite, UA Negative Negative - Positive Urine 01/20/2025 10:2 2 AM EDT us Petty Baez VINYL FLOORING INSTALLER POINT OF CARE TEST ENTER/EDIT ORDERABLES Final Result * US OB CERVICAL LENGTH (01/20/2025 9:53 AM EDT) Anatomical Region Laterality Modality Other 01/20/2025 9:5 3 AM EDT Narrative 01/20/2025 9:56 [place] [address] Ultrasound Report Signed Patient: GRETEL MARTINEZ MR#: [id number] : 2000 Acct:[id number] Age/Sex: 24 / F ADM Date: 01/20/25 Loc: US Attending Dr: Petty Baez Ordering Physician: Petty Baez Date of Service: 01/20/25 Procedure(s): US OB cervical length Accession Number(s): [id number] cc: Petty Baez; Tracy Quesada D.O. [address] [address] Patient Name: GRETEL MARTINEZ MRN: [facility]:[id number] date: 2000 Sex: F Assigned Patient Location: Current Patient Location: US Accession/Order Number: [id number] Exam Date: 01/20/2025 08:43 Report Date: 01/20/2025 09:53 At the request of: PETTY BAEZ Procedure: US OB cervical length CLINICAL [...] all 4 extremities were surveyed by the retail wireless sales consultant and no abnormalities were detected. The stomach, [...] Gibbs M.D. 01/20/2025 9:53 AM Dictation Location: [place] [address] Electronically authenticated by: [id number] Y Date: 01/20/2025 09:53 Dictated By: Brenda Gibbs M.D. Signed By: 01/20/2556 DD/ 2 TD/TT: Pediatric Np: Procedure Note Radiology, Radiologist, - 01/20/2025 [place] [address] Ultrasound Report Signed Patient: GRETEL MARTINEZ AMR#: [id number] : 2000Acct:[id number] Age/Sex: 24 / FADM Date: 01/20/25 Loc: US Attending Dr: Petty Baez Ordering Physician: Petty Baez Date of Service: 01/20/25 Procedure(s): US OB cervical length Accession Number(s): [id number] cc: Petty Baez; Tracy Quesada D.O. [place] [address] Patient Name: GRETEL MARTINEZ MRN: [facility]:[id number] date: 2000 Sex: F Assigned Patient Location: US Current Patient Location: US Accession/Order Number: [id number] Exam Date: 01/20/2025 08:43 Report Date: 01/20/2025 09:53 At the request of: PETTY BAEZ Procedure: US OB cervical length CLINICAL [...] and all 4extremities were surveyed by the retail wireless sales consultant and no abnormalities were detected. The stomach, [...] Gibbs M.D. 01/20/2025 9:53 AM Dictation Location: [place] [address] Electronically authenticated by: [id number] Y Date: 9:53 Dictated By: Brenda Gibbs M.D. Signed By:01/20/2556 DD/ 2 TD/TT: Pediatric Np: us Petty Baez VINYL FLOORING INSTALLER [facility] Final Resul t * US OB ANATOMY (01/20/2025 9:53 AM EDT) Anatomical Region Laterality Modality Other 01/20/2025 9:53 AM EDT Narrative 01/20/2025 9:56 [place] [address] Ultrasound Report Signed Patient: GRETEL MARTINEZ MR#: [id number] : 2000 Acct:[id number] Age/Sex: 24 / F ADM Date: 01/20/25 Loc: US Attending Dr: Petty Baez Ordering Physician: Petty Baez Date of Service: 01/20/25 Procedure(s): US OB anatomy Accession Number(s): [id number] cc: Petty Baez; Tracy Quesada D.O. [place] [address] Patient Name: GRETEL MARTINEZ MRN: [id number] date: 2000 Sex: F Assigned Patient Location: US Current Patient Location: US Accession/Order Number: [id number] Exam Date: 01/20/2025 08:43 Report Date: 01/20/2025 09:53 At the request of: PETTY BAEZ Procedure: US OB cervical length CLINICAL [...] all 4 extremities were surveyed by the retail wireless sales consultant and no abnormalities were detected. The stomach, [...] ounces +/- 2 ounces (10%). US/US OB anatomy IMPRESSION: SINGLE LIVE INTRAUTERINE GESTATION WITH ULTRASOUND AGE OF 20 WEEKS 4 DAYS. ULTRASOUND OB CERVICAL LENGTH The cervix was evaluated with the transvaginal probe. It is closed and measures present 4.7 cm in length. There is no evidence of previa. IMPRESSION: NORMAL CLOSED CERVIX. Impression dictated by: Brenda Gibbs M.D. 01/20/2025 9:53 AM Dictation Location: [place] [address] Electronically authenticated by: [id number] Y Date: 01/20/2025 09:53 Dictated By: Brenda Gibbs M.D. Signed By: 01/20/25 0956 DD/ 0953 TD/TT: Pediatric Np: Procedure Note Radiology, Radiologist, MD - 01/20/2025 [place] [address] Ultrasound Report Signed Patient: GRETEL MARTINEZ [facility]#: [id number] : 2000Acct:[id number] Age/Sex: 24 / FADM Date: 01/20/25 Loc: US Attending Dr: Petty Baez Ordering Physician: Petty Baez Date of Service: 01/20/25 Procedure(s): US OB anatomy Accession Number(s): [id number] cc: Petty Baez; Tracy Quesada D.O. [place] [address] Patient Name: GRETEL MARTINEZ MRN: [id number]:[id number] date: 2000 Sex: F Assigned Patient Location: US Current Patient Location: US Accession/Order Number: [id number] Exam Date: 01/20/2025 08:43 Report Date: 01/20/2025 09:53 At the request of: PETTY BAEZ Procedure: US OB cervical length CLINICAL [...] and all 4extremities were surveyed by the retail wireless sales consultant and no abnormalities were detected. The stomach, [...] ounces +/- 2 ounces (10%). US/US OB anatomy IMPRESSION: SINGLE LIVE INTRAUTERINE GESTATION WITH ULTRASOUND AGE OF 20 WEEKS 4 DAYS. ULTRASOUND OB CERVICAL LENGTH The cervix was evaluated with the transvaginal probe. It is closed and measures present 4.7 cm in length. There is no evidence of previa. IMPRESSION: NORMAL CLOSED CERVIX. Impression dictated by: Brenda Gibbs M.D. 01/20/2025 9:53 AM Dictation Location: [place] [address] Electronically authenticated by: [id number] Y Date: 9:53 Dictated By: Brenda Gibbs M.D. Signed By:01/20/25 0956 DD/ 0953 TD/TT: Pediatric Np: us Petty Baez NP [facility] Final Resul t * US pelvis (12/16/2024 10:42 AM EDT) [...] Geo Lopez MD us Yonas Gold DO [facility] [place]ED[place] Final Result * (ABNORMAL) POCT , urine manually resulted (11/05/2024 9:53 AM EDT) Preg Test, Ur Positive Negative Urine 11/05/2024 9:53 AM EDT Yonas Alla DO POINT OF CARE TEST [...] ELECTRONICALLY SIGNED BY: Geo Lopez MD Narrative 11/09/2024 11:24 AM EDT FINDINGS: A single [...] Lopez MD us Yonas Alla DO IMG OB US PROCEDURES Final Resul t from Last 3 Months Insurance MEDICAID [place] Care Teams Office Copy Selector Relationship Specialty Start Date End Date Tracy Quesada MD [address] [facility] [address] PCP - General Family Medicine 11/26/23
--- OUTSIDE RECORDS SUMMARY | 2025-01-20 20:29 | XMS_ITS | Encounter Summary ---
Author Organization [facility] Address [address] [place] [address] Care Team Providers Care Vegetable Grower Name Role Phone Trayc Quesada MD Primary Care Provider [phone] Encounter Details Date Type Department Care Team (Late st Contact Info) Description 01/20/2025 Bamboo flowsheet [facility] [address] [place] [address] [place] [address] Petty Baez, BREAK AND LOAD OPERATOR [address] [facility] [place] [address] Social History Tobacco Use Types Packs/Day [...] Info) Description 02/21/2025 1:20 PM EST Routine [facility] [address] [facility] [place] [address] Yonas Gold DO [address] [facility] [address] [place] [id number] documented as of this encounter Visit Diagnoses Not on filedocumented in this encounter Care Teams Vegetable Grower Relationship Specialty Start Date End Date Tracy Quesada MD [address] [facility] [place] [phone] PCP - General Family Medicine 11/26/23 documented as of this encounter
--- OUTSIDE RECORDS SUMMARY | 2025-01-20 20:29 | XMS_ITS | Encounter Summary ---
Author Organization [facility] Address [address] [place] [address] Care Team Providers Care Rigger Name Role Phone Tracy Quesada MD Primary Care Provider [phone] Encounter Details Date Type Department Care Team (Late st Contact Info) Description 01/20/2025 Clinisync Result Encounter NOM[facility] External Department Unsolicited Toshia Baez, RECHARGER [address] [facility] [place] [address] Social History Tobacco Use Types Packs/Day [...] EST Routine [facility] [address] [facility] [place] [address] Yonas Gold DO [address] [place] [id number] documented as of this encounter Procedures Procedure Name Priority Date/Time Associated Diagnosis Comments US OB ANATOMY 01/20/2025 9:53 AM EDT documented in this encounter Results * US OB ANATOMY (01/20/2025 9:53 AM EDT) Anatomical Region Laterality Modality Other 01/20/2025 9:53 AM EDT Narrative 01/20/2025 9:56 [place] [address] Ultrasound Report Signed Patient: YOUSUF MARTINEZ MR#: [id number] : 2000 Acct:[id number] Age/Sex: 24 / F ADM Date: 01/20/25 Loc: US Attending Dr: Toshia Baez Ordering Physician: Toshia Baez Date of Service: 01/20/25 Procedure(s): US OB anatomy Accession Number(s): [id number] cc: Toshia Baez; Tracy Quesada D.O. [place] [id number] Patient Name: YOUSUF MARTINEZ MRN: [id number]:[id number] date: 2000 Sex: F Assigned Patient Location: US Current Patient Location: US Accession/Order Number: [id number] Exam Date: 01/20/2025 08:43 Report Date: 01/20/2025 [...] all 4 extremities were surveyed by the funeral prearrangement counselor and no abnormalities were detected. The stomach, [...] Gibbs M.D. 01/20/2025 9:53 AM Dictation Location: [place] [address] Electronically authenticated by: [id number] Y Date: 01/20/2025 09:53 Dictated By: Brenda Gibbs M.D. Signed By: 01/20/2556 DD/ 2 TD/TT: Pe Teacher: Procedure Note Radiology, Radiologist, MD - 01/20/2025 [place] [address] Ultrasound Report Signed Patient: YOUSUF MARTINEZ AMR#: [id number] : 2000Acct:[id number] Age/Sex: 24 / FADM Date: 01/20/25 Loc: US Attending Dr: Toshia Baez Ordering Physician: Toshia Baez Date of Service: 01/20/25 Procedure(s): US OB anatomy Accession Number(s): [id number] cc: Toshia Baez; Tracy Quesada D.O. The [place] [address] Patient Name: YOUSUF MARTINEZ MRN: [id number]:[id number] date: 2000 Sex: F Assigned Patient Location: US Current Patient Location: US Accession/Order Number: [id number] Exam Date: 01/20/2025 08:43 Report Date: 01/20/2025 [...] and all 4extremities were surveyed by the funeral prearrangement counselor and no abnormalities were detected. The stomach, [...] Gibbs M.D. 01/20/2025 9:53 AM Dictation Location: [place] [address] Electronically authenticated by: [id number] Y Date: 9:53 Dictated By: Brenda Gibbs M.D. Signed By:01/20/25 0956 DD/ TD/TT: Pe Teacher: Toshia Baez RECHARGER [facility] Final Resul t documented in this encounter Visit Diagnoses Not on filedocumented in this encounter Care Teams Rigger Relationship Specialty Start Date End Date Tracy Quesada MD [address] [place] [phone] PCP - General Family Medicine 11/26/23 documented as of this encounter
== END 2025-01-20 20:26 | disposition home or self-care (01) ==
LOC: LAB 20:25
PROVIDERS: PCP Family Medicine; Visit Provider Nurse Practitioner Family
DX: Z34.92 Encounter for supervision of normal pregnancy, unspecified, second trimester (principal)
CPT/HCPCS: 88175

== ENCOUNTER 2025-03-28 12:46 | Outpatient (OUT) | payer MEDICAID, SELFPAY ==
--- NOTE | 2025-03-28 | US_ITS ---
[place] [address] Patient Name: YOUSUF MARTINEZ MRN: [id number] date: 2000 Sex: F Assigned Patient Location: [facility] Current Patient Location: Accession/Order Number: [id number] Exam Date: 03/28/2025 13:00 Report Date: 03/28/2025 16:23 At the request of: DEMARCUS GRIMES DO Procedure: US OB BPP w non-stress US OB BPP w non-stress 03/28/2025 1:24 PM SIGNS AND SYMPTOMS: ^OLIGOHYDRAMINOS PROTOCOL: Transabdominal sonographic imaging of the gravid uterus COMPARISON: 02/07/2025 FINDINGS: Estimated gestational age: 31 weeks 0 days heart rate: 145 bpm. Amniotic fluid index: 6.16 cm the deepest vertical pocket measures 3.55 cm. Biophysical profile: breathing movements: 2/2 Gross body movements: 2/2 tone: 2/2 Amniotic fluid volume: 2/2 US/US OB BPP w non-stress IMPRESSION: Biophysical profile score: 11/26 Impression dictated by: Cam Hendrix M.D. 03/28/2025 4:23 PM Dictation Location: [place] [address] Electronically authenticated by: [id number] Y Date: 03/28/2025 16:23
[2025-03-28 13:24] VITALS: BP 123/64; PULSE 83
--- NOTE | 2025-03-28 14:58 | PC.NURSE ---
1455: Amnisure negative and patient informed- plan of care discussed for repeat BPP on 03/31 at next appointment. verbalized understanding.
== END 2025-03-28 15:01 | disposition home or self-care (01) ==
LOC: US 12:47 → FBC 12:48
PROVIDERS: Visit Provider Obstetrics & Gynecology
DX: O41.03X0 Oligohydramnios, third trimester, not applicable or unspecified (principal); Z3A.31 31 weeks gestation of pregnancy
CPT/HCPCS: 76818; 84112

== ENCOUNTER 2025-03-31 12:40 | Outpatient (OUT) | payer MEDICAID, SELFPAY ==
--- NOTE | 2025-03-31 12:53 | US_ITS ---
[place] [id number] Patient Name: YOUSUF MARTINEZ [facility]: [facility]:[id number] date: 2000 Sex: F Assigned Patient Location: [facility] Current Patient Location: Accession/Order Number: [id number] Exam Date: 03/31/2025 12:55 Report Date: 03/31/2025 19:30 At the request of: DEMARCUS GRIMES DO Procedure: US OB BPP w non-stress Ultrasound biophysical profile Comparison 04/07/2025 INDICATION: Oligohydramnios FINDINGS AND IMPRESSION: Cephalic position. ELI measures 6.1 cm, largest pocket of fluid 3.5 cm. This is abnormal.. heart rate 142 beats per minutes. Biophysical profile score 8/8. Impression dictated by: Marco Zhou M.D. 03/31/2025 7:30 PM Dictation Location: [place] [address] Electronically authenticated by: [id number] Y Date: 03/31/2025 19:30
[2025-03-31 13:26] VITALS: BP 113/81; PULSE 92
== END 2025-03-31 14:30 | disposition home or self-care (01) ==
LOC: US 12:40 → FBC 12:42
PROVIDERS: Visit Provider Obstetrics & Gynecology
DX: O41.00X0 Oligohydramnios, unspecified trimester, not applicable or unspecified (principal)
CPT/HCPCS: 76818

== ENCOUNTER 2025-04-04 12:40 | Outpatient (OUT) | payer MEDICAID, SELFPAY ==
--- NOTE | 2025-04-04 12:47 | US_ITS ---
[address] [address] Patient Name: YOUSUF MARTINEZ MRN: [facility]:[id number] date: 2000 Sex: F Assigned Patient Location: [facility] Current Patient Location: [facility] Accession/Order Number: [id number] Exam Date: 04/04/2025 12:48 Report Date: 04/04/2025 13:12 At the request of: TOSHIA TATE Procedure: US OB BPP w non-stress BIOPHYSICAL PROFILE: CLINICAL INFORMATION: Oligohydramnios COMPARISON: 03/31/2025 There is a single live intrauterine gestation in cephalic presentation. The reported gestational age is 32 weeks 0 days. The heart rate measures 185 beats per minute when measured on 2 separate occasions. FINDINGS: TONE: 1 or more episodes of activity extension and flexion of extremity or opening and closing of the hand [Y] 2/2 GROSS BODY MOVEMENTS: 3 or more discrete body or limb movements [Y] 2/2 BREATHING MOVEMENTS: 1 or more episodes of breathing lasting at least 30 seconds [Y] 2/2 ELI: A single deepest vertical pocket of amniotic fluid greater than 2 cm [Y] 2/2 ELI: 6.2 cm. The 2.5th percentile is 7.7 cm Total score: 8/8 US/US OB BPP w non-stress IMPRESSION: NORMAL BIOPHYSICAL PROFILE. CONTINUED OLIGOHYDRAMNIOS. INCREASED HEART RATE. Impression dictated by: Brenda Gibbs M.D. 04/04/2025 1:12 PM Dictation Location: [employer] Electronically authenticated by: [id number] Y Date: 04/04/2025 13:12
[2025-04-04 13:05] VITALS: BP 126/67; PULSE 88
== END 2025-04-04 13:35 | disposition home or self-care (01) ==
LOC: US 12:40 → FBC 12:44
PROVIDERS: Visit Provider Nurse Practitioner Family
DX: O41.03X0 Oligohydramnios, third trimester, not applicable or unspecified (principal); Z3A.32 32 weeks gestation of pregnancy
CPT/HCPCS: 76818

== ENCOUNTER 2025-04-11 12:43 | Outpatient (OUT) | payer MEDICAID, SELFPAY ==
--- OUTSIDE RECORDS SUMMARY | 2025-04-05 14:40 | XMS_ITS | Encounter Summary ---
Author Organization [facility] Address [address] [place] [address] Care Team Providers Care Components Engineer Name Role Phone Tracy Quesada MD Primary Care Provider [phone] Reason for Visit * ReasonCommentsRoutine Visit Encounter Details DateTypeDepartmentCare Team (Latest Contact Info)Rjvkrtpftwe79/16/2025 2:40 PM ESTRoutine [facility] Juan Luis OBGYLuke [address] [place] [address] Chelsie Peralta PA [address] [place] [address] Third trimester ([facility]); 32 weeks gestation of ([facility]); Hypertension, unspecified type Social History Tobacco UseTypesPacks/DayYears UsedDateSmoking Tobacco: NeverSmokeless Tobacco: NeverAlcohol UseStandard Drinks/WeekCommentsNot Currently0 (1 standard drink = 0.6 oz pure alcohol)Estimated Date of RmyvkqbzWzpvwzozQpw45/09/2026ased on last menstrual period of 08/23/2024Sex and Gender InformationValueDate Recorded Sex Assigned at BirthNot on fileLegal DaeIlygfo99/15/2023 10:12 PM EDTGender IdentityNot on fileSexual OrientationNot on filedocumented as of this encounter Last Filed Vital Signs Vital SignReadingTime TakenCommentsBlood Hzbyzcxs840/8404/05/2025 2:45 PM EST Pulse--Temperature--Respiratory Rate--Oxygen Saturation--Inhaled Oxygen Concentration--Lnobau09.4 kg (197 lb)04/05/2025 2:45 PM ESTHeight--Body Mass Index30.8508 10:35 AM EDTdocumented in this encounter Progress Notes * NOMI Key - 04/05/2025 2:40 PM EST Reason for Appointment: Patient ID: Gretel Otoole is a 24 y.o. female who presents for Routine Visit Patient presents today for Return OB appointment. MEDICATIONS Current Outpatient Medications Medication Instructions Alcohol Swabs (Alcohol Prep Pad) 70 % pads 1 Pad, Topical, Daily, Use four times daily to check FSBS. Blood Glucose Monitoring Suppl ([employer] Glucometer) w/Device kit 1 kit, Does not apply, Daily, Use four times daily to check FSBS. In the morning prior to breakfast & 1 hour after each meal for a total of 4times daily. Glucose Blood (Blood Glucose Test) strip 1 strip, In Vitro, Daily, Use in the morning prior to breakfast, 1 hour after each meal for a total of 4times daily. Lancets Ultra Thin misc 1 each, In Vitro, Daily, Use to check FSBS four times daily MV-Min-Fe Fum-FA-DHA ( 1 PO) Take by mouth ALLERGIES No Known Allergies PROBLEMS Active Ambulatory Problems Diagnosis Date Noted Hypertension 04/05/2025 Resolved Ambulatory Problems Diagnosis Date Noted No Resolved Ambulatory Problems Past Medical History: Diagnosis Date Lower back pain HISTORY PAST MEDICAL HISTORY SOCIAL HISTORY Past Medical History: Diagnosis Date Hypertension Lower back pain Social History Tobacco Use Smoking status: Never Smokeless tobacco: Never Substance Use Topics Alcohol use: Not Currently Drug use: Never FAMILY HISTORY No family history on file. SURGICAL HISTORY History reviewed. No pertinent surgical history. REVIEW OF SYSTEMS Review of Systems: Review of Systems Constitutional: Negative. HENT: Negative. Eyes: Negative. Respiratory: Negative. Cardiovascular: Negative. Gastrointestinal: Negative. Genitourinary: Negative. Musculoskeletal: Negative. Skin: Negative. Neurological: Negative. All other systems reviewed and are negative. Hematological: Negative. Endocrine: Negative. Allergic/Immunologic: Negative. OBJECTIVE Objective: Physical Exam Constitutional: Appearance: Normal appearance. She is normal weight. HENT: Head: Normocephalic. Cardiovascular: Rate and Rhythm: Normal rate. Pulses: Normal pulses. Pulmonary: Effort: Pulmonary effort is normal. Breath sounds: Normal breath sounds. Abdominal: Palpations: Abdomen is soft. Musculoskeletal: General: Normal range of motion. Neurological: General: No focal deficit present. Mental Status: She is alert and oriented to person, place, and time. Psychiatric: Mood and Affect: Mood normal. Behavior: Behavior normal. Thought Content: Thought content normal. Judgment: Judgment normal. Vitals and nursing note reviewed. Vitals: Estimated body mass index is 30.85 kg/m?? as calculated from the following: Height as of 11/26/23: 5' 7 . Weight as of this encounter: 197 lb. BP: 128/84 Patient's last menstrual period was 08/23/2024. Assessment/Plan ICD-10-CM 1. Third trimester ([facility]) Z34.93 POCT urinalysis dipstick manually resulted 2. 32 weeks gestation of ([facility]) Z3A.32 3. Hypertension, unspecified type I10 Assessment/Plan Return OB: Patient presents today for a routine obstetrics appointment. Patient is currently 32w1d . Patient states she is doing well but has complaints of being tired due to current . Patient has verbalizes frequent movement. labor precautions was discussed/given and patient was instructed to perform kick counts three times a day. Orders Placed This Encounter Procedures POCT urinalysis dipstick manually resulted Follow Up: Patient is to return to office in 2 week for routine OB appointment. Documented by NOMI Key on behalf of: NOMI Key documented in this encounter Plan of Treatment DateTypeDepartmentCare Team (Latest Contact Info)Uspftmjyeaa54/30/2025 2:20 PM ESTRoutine [facility] OBGYN [address] [place] [phone] Chelsie Peralta PA [address] [place] [address] documented as of this encounter Procedures Procedure NamePriorityDate/TimeAssociated DiagnosisCommentsPOCT URINALYSIS ZHNUYWZJUaeeuwd19/16/2025 2:52 PM EST Third trimester ([facility]) documented in this encounter Results * (ABNORMAL) POCT urinalysis dipstick manually resulted (04/05/2025 2:52 PM EST) ComponentValueRef RangeTest MethodAnalysis TimePerformed AtPathologist SignatureColor, UAAmberClarity, UACloudyGlucose, UANegativeNegative - 2000(110) ++++ mg/dLBilirubin, UANegativeNegative - 4(70) +++ mg/dLKetones, UA PositiveNegative - 160(16) ++++ mg/dLSpec Grav, UA1.0251 - 1.03Blood, UA NegativeNegative - 50 Tal/mcLpH, UA6.05 - 9Protein, UA1+Negative - 2000(20) ++++ mg/dLUrobilinogen, UA1.00.2 - 12 mg/dLLeukocytes, UA3+Negative - 500+++ Pepe/mcLNitrite, UANegativeNegative - PositiveSpecimen (Source)Anatomical Location / LateralityCollection Method / VolumeCollection TimeReceived Time Urine04/05/2025 2:52 PM EST Narrative Authorizing ProviderResult TypeResult StatusSentara [facility] TEST ENTER/EDIT ORDERABLESFinal Result documented in this encounter Visit Diagnoses Diagnosis Third trimester ([facility]) state, incidental 32 weeks gestation of ([facility]) Hypertension, unspecified type documented in this encounter Care Teams Team MemberRelationshipSpecialtyStart DateEnd Date Tracy Quesada MD [address] [place] [address] [place] [phone] PCP - GeneralFamily Medicine11/26/23documented as of this encounter
--- NOTE | 2025-04-11 | US_ITS ---
[facility] [place] [id number] Patient Name: YOUSUF MARTINEZ MRN: [facility]:[id number] date: 2000 Sex: F Assigned Patient Location: [facility] Current Patient Location: [facility] Accession/Order Number: [id number] Exam Date: 04/11/2025 12:46 Report Date: 04/11/2025 13:07 At the request of: TOSHIA TATE Procedure: US OB BPP w non-stress BIOPHYSICAL PROFILE: CLINICAL INFORMATION: OLIGOHYDRAMNIOS COMPARISON: 04/04/2025 There is a single live intrauterine gestation in cephalic presentation. The reported gestational age is 33 weeks 0 days. The heart rate measures 150 beats per minute. FINDINGS: TONE: 1 or more episodes of activity extension and flexion of extremity or opening and closing of the hand [Y] 2/2 GROSS BODY MOVEMENTS: 3 or more discrete body or limb movements [Y] 2/2 BREATHING MOVEMENTS: 1 or more episodes of breathing lasting at least 30 seconds [Y] 2/2 ELI: A single deepest vertical pocket of amniotic fluid greater than 2 cm [Y] 2/2 ELI: 8.2 cm. The 5th percentile is 8.3 cm. Total score: 8/8 US/US OB BPP w non-stress IMPRESSION: NORMAL BIOPHYSICAL PROFILE. CONTINUED OLIGOHYDRAMNIOS. Impression dictated by: Brenda Gibbs M.D. 04/11/2025 1:07 PM Dictation Location: [place] [address] Electronically authenticated by: [id number] Y Date: 04/11/2025 13:07
--- OUTSIDE RECORDS SUMMARY | 2025-04-11 12:45 | XMS_ITS | Encounter Summary ---
Author Organization [facility] Address [address] [place] [address] Care Team Providers Care Financial Investment Adviser Name Role Phone Tracy Quesada MD Primary Care Provider [phone] Encounter Details DateTypeDepartmentCare Team (Latest Contact Info)Wlkmkhxmfef35/09/2025Telephone [facility] [address] [place] [phone] Sherita Bowers MA [address] [place] [address] Social History Tobacco UseTypesPacks/DayYears UsedDateSmoking Tobacco: NeverSmokeless Tobacco: NeverAlcohol UseStandard Drinks/WeekCommentsNot Currently0 (1 standard drink = 0.6 oz pure alcohol)Estimated Date of UeqwbyjvTcoahrxeTbh52/09/2026ased on last menstrual period of 08/23/2024Sex and Gender InformationValueDate Recorded Sex Assigned at BirthNot on fileLegal VgfHvblwa75/15/2023 10:12 PM EDTGender IdentityNot on fileSexual OrientationNot on filedocumented as of this encounter Miscellaneous Notes * Telephone Encounter - Sherita Bowers MA - 03/29/2025 10:42 AM EST Evelina Frey called. She said she has been trying to make contact w/the patient with no luck. Pt is scheduled for her [facility] visit at 12:45 pm tomorrow 03/30/2025. To see if our office can try to contact her and advise her of the appointment. AMANDA Frey stated that she does NOT have any other dates opened to reschedule the patient. I called the patient made contact w/her and advised her ofthe message above. Pt states she has NOT received any calls and has been wondering when she was to get the call. I gave the patient the New Pt MFM appointment date and time along w/[facility] phone number to call the nurse back. PVU and stated she will be calling [facility]. I then called RN Shante back and advised her that the patient stated she has NOT received a call from [facility] or any missed calls from Hernandez. Pt was wondering when she was going to get the call. Nurse did not say anything. I then continued to tell Shante that the patient was aware of the date and timefor her visit and Gretel will be calling [facility] over the appointment. Nurse Shante requested an alternative number to reach the patient since she had no luck w/her current number. I gave her the alternative number which is her partner. documented in this encounter Plan of Treatment DateTypeDepartmentCare Team (Latest Contact Info)Hhoqcfoqzkp73/30/2025 2:20 PM ESTRoutine [facility] [address] [place] [phone] Chelsie Peralta PA [address] [place] [address] documented as of this encounter Visit Diagnoses Not on filedocumented in this encounter Care Teams Team MemberRelationshipSpecialtyStart DateEnd Date Tracy Quesada MD [address] [place] [phone] PCP - GeneralFamily Medicine11/26/23documented as of this encounter
--- OUTSIDE RECORDS SUMMARY | 2025-04-11 12:45 | XMS_ITS | Encounter Summary ---
Author Organization [facility] Address [address] [place] [address] Care Team Providers Care Talent Development Coordinator Name Role Phone Tracy Quesada MD Primary Care Provider [phone] Encounter Details DateTypeDepartmentCare Team (Latest Contact Info)Mduoqsrghdi90/08/2025linisync Result Encounter [facility] Department Unsolicited Yonas Gold DO [address] Lamont Mcknight, [facility] Social History Tobacco UseTypesPacks/DayYears UsedDateSmoking Tobacco: NeverSmokeless Tobacco: NeverAlcohol UseStandard Drinks/WeekCommentsNot Currently0 (1 standard drink = 0.6 oz pure alcohol)Estimated Date of TqogdmcyQvgnoucbCle94/09/2026ased on last menstrual period of 08/23/2024Sex and Gender InformationValueDate Recorded Sex Assigned at BirthNot on fileLegal GedRnjdcg34/15/2023 10:12 PM EDTGender IdentityNot on fileSexual OrientationNot on filedocumented as of this encounter Plan of Treatment DateTypeDepartmentCare Team (Latest Contact Info)Qntjuvqfrnu70/30/2025 2:20 PM ESTRoutine [facility] [address] [facility] [place] [address] Cehlsie Peralta PA [address] [place] [address] documented as of this encounter Procedures Procedure NamePriorityDate/TimeAssociated DiagnosisCommentsAMNISURERoutine 03/28/2025 2:35 PM EST documented in this encounter Results * AMNISURE (03/28/2025 2:35 PM EST)ComponentValueRef RangeTest MethodAnalysis TimePerformed AtPathologist SignatureTBH AMNISURENEGATIVENEGATIVETBHSpecimen (Source)Anatomical Location / LateralityCollection Method / VolumeCollection TimeReceived Time03/28/2025 2:35 PM EST03/28/2025 2:40 PM EST Narrative [facility] - 03/28/2025 2:54 PM EST Authorizing ProviderResult TypeResult StatusCorey Alla DOLAB BLOOD ORDERABLES Final ResultPerforming OrganizationAddressCity/State/ZIP CodePhone Number [facility] documented in this encounter Visit Diagnoses Not on filedocumented in this encounter Care Teams Team MemberRelationshipSpecialtyStart DateEnd Date Tracy Quesada MD [address] [place], [place] [address] [place] [phone] PCP - GeneralFamily Medicine11/26/23documented as of this encounter
--- OUTSIDE RECORDS SUMMARY | 2025-04-11 12:45 | XMS_ITS | Clinical Summary ---
Author Organization [facility] Address [address] [place] [address] Care Team Providers Care Ice Puller Name Role Phone Tracy Quesada MD Primary Care Provider [phone] Allergies No known active allergies Medications MedicationSigDispense QuantityRefillsLast FilledStart DateEnd DateStatus MV-Min-Fe Fum-FA-DHA ( 1 PO) Take by mouthActive Alcohol Swabs (Alcohol Prep Pad) 70 % pads Indications:Gestational diabetes mellitus (GDM), antepartum, gestational diabetes method of control unspecified(HHS-HCC),Elevated glucose tolerance test Apply 1 Pad topically Daily Use four times daily to check FSBS. 150 each tive Blood Glucose Monitoring Suppl (D-Care Glucometer) w/Device kit Indications:Gestational diabetes mellitus (GDM), antepartum, gestational diabetes method of control unspecified(HHS-HCC),Elevated glucose tolerance test1 kit Daily Use four times daily to check FSBS. In the morning prior to breakfast & 1 hour after each meal for a total of 4times daily. 1 kit ctive iron polysaccharides (ProFe) 391.3 (180 Fe) MG capsule Indications:Elevated glucose tolerance test,Low hemoglobinTake 1 capsule (391.3 mg) by mouth Daily 30 capsule 61Expired Lancets Ultra Thin misc Indications:Gestational diabetes mellitus (GDM), antepartum, gestational diabetes method of control unspecified(HHS-HCC),Elevated glucose tolerance test1 each by In Vitro route Daily Use to check FSBS four times daily 150 each Expired Glucose Blood (Blood Glucose Test) strip Indications:Gestational diabetes mellitus (GDM), antepartum, gestational diabetes method of control unspecified([facility]),Elevated glucose tolerance test1 strip by In Vitro route Daily Use in the morning prior to breakfast, 1 hour after each meal for atotal of 4times daily. 150 strip Expired Active Problems ProblemNoted DateDiagnosed TqjyObbnuvpchfxm11/16/2025Estimated Date of RgjhszbxDqzewrxjFdg62/09/2026ased on last menstrual period of 08/23/2024 Encounters DateTypeDepartmentCare GyfzJpxpahesamg47/18/2025b[place] [address] Demarcus Gold, DO 04/05/2025 2:40 [place] [address] Chelsie Peralta PA Third trimester ([facility]); 32 weeks gestation of ([facility]); Hypertension, unspecified type04/05/2025amboo [place] [address] Chelsie Peralta PA 04/04/2025linisync Result Encounter [facility]OM[facility] External Department Unsolicited Petty Baez NP 03/31/2025linisync Result Encounter [facility]OMS External Department Unsolicited Demarcus Gold, 03/30/2025External Result [place] [phone] Demarcus Gold, DO 03/29/2025[place] [address] Sherita Bowers MA 03/28/2025linisync Result Encounter NOMS External Department Unsolicited Demarcus Gold, 03/28/2025linisync Result Encounter NOMS External Department Unsolicited Demarcus Gold DO 03/23/2025 2:00 PM ESTRoutine [facility] S[address] [facility] [place] [address] Demarcus Gold, DO 30 weeks gestation of ([facility]); Third trimester ([facility]); Oligohydramnios, antepartum, single or unspecified fetus ([facility]); SGA (small for gestational age) ([facility]); IUGR (intrauterine growth restriction) affecting care of mother, third trimester, fetus 2 ([facility])03/23/2025 1:30 PM ESTAncillary Procedure [facility] PICKETT [address] [place] [address] [place] [address] Size of fetus inconsistent with dates in second trimester ([facility])03/23/2025 Telephone [facility] PICKETT [address] [place] [address] [place] [address] Irene Juan LPN 03/23/20251644Uusmfg42/17/2025 1:30 PM ESTRoutine [facility] PICKETT [address] [place] [address] [place] [address] Chelsie Peralta PA Size of fetus inconsistent with dates in second trimester ([facility]) (Primary Dx); 28 weeks gestation of ([facility]); Third trimester ([facility]); Low hemoglobin; Hypertension, unspecified type; Gestational diabetes mellitus (GDM), antepartum, gestational diabetes method of control unspecified([facility]); Elevated glucose tolerance test03/07/2025Telephone [facility] BOATENGN [address] [place] [address] Chelsie Peralta PA 03/07/2025amboo flowsheet [facility]ICKETT [address] [place] [address] [place] [address] Chelsie Peralta PA 5Abstract [facility] [address] [facility] [place] [address] Demarcus Gold, DO 02/24/2025bstract [facility] [place] [facility] [address] [place] [address] Demarcus Gold, DO 02/24/2025Telephone [facility] [address] [place] [phone] Demarcus Gold, DO 02/21/2025 1:20 PM ESTRoutine [facility] [place] [facility] [address] [place] [address] Demarcus Gold, DO Second trimester ([facility]); 26 weeks gestation of ([facility]); Hypertension, unspecified type; Diabetes mellitus tweauqwoi22/03/2025amboo flowsheet [facility] [address] [place] [address] Demarcus Gold, DO 01/31/2025Orders Only [facility] [address] [place] [address] Dinah Leon LPN 01/21/2025Telephone [facility] [place] [facility] [address] [place] [address] Sherita Bowers MA 01/20/2025 10:20 AM EDTRoutine [facility] [address] [place] [address] Petty Baez NP 21 weeks gestation of ([facility]); Second trimester ([facility])01/20/2025External Result Encounter NOMS External Department Unsolicited Petty Baez NP 01/20/2025linisync Result Encounter [facility]OM[facility] External Department Unsolicited Petty Baez NP 01/20/2025linisync Result Encounter [facility]OM[facility] External Department Unsolicited Petty Baez NP 01/20/2025amboo flowsheet [facility] [place] [facility] [address] [place] [phone] Petty Baez NP 01/19/2025Travelfrom Last 3 Months Social History Tobacco UseTypesPacks/DayYears UsedDateSmoking Tobacco: NeverSmokeless Tobacco: Never Tobacco Cessation:Counseling Given: Not Answered Alcohol UseStandard Drinks/WeekCommentsNot Currently0 (1 standard drink = 0.6 oz pure alcohol)Estimated Date of WbarqzqrCurcebwnLza76/09/2026ased on last menstrual period of 08/23/2024Sex and Gender InformationValueDate RecordedSex Assigned at BirthNot on fileLegal IqzFekeyj65/15/2023 10:12 PM EDTGender IdentityNot on fileSexual OrientationNot on file Last Filed Vital Signs Vital SignReadingTime TakenCommentsBlood Hrdabpwm257/8404/05/2025 2:45 PM EST Erzqw753511/26/2023 10:35 AM EDTTemperature--Respiratory Rate--Oxygen Saturation-- Inhaled Oxygen Concentration--Yhboak21.4 kg (197 lb)04/05/2025 2:45 PM ESTHeight 170.2 cm (5' 7 )11/26/2023 10:35 AM EDTBody Mass Index30.85011/26/2023 10:35 AM EDT Plan of Treatment DateTypeDepartmentCare Team (Latest Contact Info)Zgqbkpfecso39/30/2025 2:20 PM ESTRoutine [facility] [address] [place] [address] Chelsie Peralta PA [address] [place] [address] Procedures Procedure NamePriorityDate/TimeAssociated DiagnosisCommentsPOCT URINALYSIS ABUTHVFREmtuqvh18/16/2025 2:52 PM EST Third trimester ([facility]) US OB BPP W NON-BJPCJB2604/04/2025 1:12 PM EST US OB BPP W NON-OSNGOC9003/31/2025 7:30 PM EST US OB 14+ WEEKS ANATOMY SCAN03/30/2025 3:06 PM EST US OB BPP W NON-XNLEMD4803/28/2025 4:23 PM EST OSEGBHHWFoohmic00/08/2025 2:35 PM EST POCT URINALYSIS QGIMRJTSVtlvrsc29/03/2025 2:44 PM EST 30 weeks gestation of ([facility]) Third trimester ([facility]) US OB FOLLOW UP TRANSABDOMINAL JIFYDIEVUrporfr19/03/2025 2:04 PM EST Size of fetus inconsistent with dates in second trimester ([facility]) POCT URINALYSIS GDQUZEXKGyiwaay77/17/2025 1:25 PM EST 28 weeks gestation of ([facility]) Third trimester ([facility]) POCT URINALYSIS MTASKKOITlhsebg56/03/2025 1:18 PM EST Second trimester ([facility]) RECURRENT VAGINITIS (HTRX)Mqwgztr6201/20/2025 11:02 AM EDT POCT URINALYSIS NFTEZQBHGouhgza60/02/2025 10:22 AM EDT 21 weeks gestation of ([facility]) IGP,APTIMA HPV,AGE BBXEBpsobyl33/02/2025 10:00 AM EDT US OB CERVICAL IEKQAW8801/20/2025 9:53 AM EDT US OB ZZIAGKQ3501/20/2025 9:53 AM EDT PAP TEST, STIDYXDZXajjcef86/02/2025 12:00 AM EDTfrom Last 3 Months Results * (ABNORMAL) POCT urinalysis dipstick manually resulted (04/05/2025 2:52 PM EST) Only the most recent of5 resultswithin the time period is included. ComponentValueRef RangeTest MethodAnalysis TimePerformed AtPathologist Signature Color, UAAmberClarity, UACloudyGlucose, UANegativeNegative - 2000(110) ++++ mg/dLBilirubin, UANegativeNegative - 4(70) +++ mg/dLKetones, UAPositiveNegative - 160(16) ++++ mg/dLSpec Grav, UA1.0251 - 1.03Blood, UANegativeNegative - 50 Tal/mcLpH, UA6.05 - 9Protein, UA1+Negative - 2000(20) ++++ mg/dLUrobilinogen, UA 1.00.2 - 12 mg/dLLeukocytes, UA3+Negative - 500+++ Pepe/mcLNitrite, UANegative Negative - PositiveSpecimen (Source)Anatomical Location / LateralityCollection Method / VolumeCollection TimeReceived PtezOrcik59/16/2025 2:52 PM EST Narrative Authorizing ProviderResult TypeResult StatusAmy [facility] OF CARE TEST ENTER/EDIT ORDERABLESFinal Result * US OB BPP W NON-STRESS (04/04/2025 1:12 PM EST) Only the most recent of3 resultswithin the time period is included. Anatomical RegionLateralityModalityOtherSpecimen (Source)Anatomical Location / LateralityCollection Method / VolumeCollection TimeReceived Time04/04/2025 1:12 PM EST Narrative 04/04/2025 1:15 PM EST [facility] ?[address] ? [place], [facility] ? Ultrasound Report ? Signed ? Patient: YOGESH MARTINEZYELI Omar ? MR#: [id number] ?? : 2000 ?Acct:[id number] ?? Age/Sex: 24 / F ?ADM Date: 04/04/25 ?? Loc: [facility] ??250-1 ? Attending Dr: Petty Baez ? Ordering Physician: Petty Baez ?? Date of Service: 04/04/25 ?? Procedure(s): US OB BPP w non-stress ?? Accession Number(s): [id number] ? cc: Petty Baez; Physician,Non-Staff M.D. ? [facility] ? [address] ? [place] [address] ? Patient Name: ?? GRETEL MARTINEZ ? MRN: [facility]:[id number] ? date: 2000 ?Sex: F ?? Assigned Patient Location: [facility] ?? Current Patient Location: [facility] ?? Accession/Order Number: [id number] ?? Exam Date: 04/04/2025 ??12:48 ?Report Date: 04/04/2025 ??13:12 ? At the request of: ?? PETTY ??SASHA ? Procedure: ??US OB BPP w non-stress ? BIOPHYSICAL PROFILE: ? CLINICAL INFORMATION: Oligohydramnios ? COMPARISON: 03/31/2025 ? There is a single live intrauterine gestation in cephalic presentation. ??The ?? reported gestational age is 32 weeks 0 days. ??The heart rate measures ?? 185 beats per minute when measured on 2 separate occasions. ? FINDINGS: ? TONE: 1 or more episodes of activity extension and flexion of ?? extremity or opening and closing of the hand ?[Y] ? 2/2 ?? GROSS BODY MOVEMENTS: 3 or more discrete body or limb movements ?[Y] ? 2/2 ?? BREATHING MOVEMENTS: 1 or more episodes of breathing lasting at ?? least 30 seconds ? [Y] ? 2/2 ?? ELI: A single deepest vertical pocket of amniotic fluid greater than 2 cm ? [Y] ? 2/2 ?ELI: 6.2 cm. ??The 2.5th percentile is 7.7 cm ? Total score: ? 8/8 ? US/US OB BPP w non-stress ?? IMPRESSION: ? NORMAL BIOPHYSICAL PROFILE. ? CONTINUED OLIGOHYDRAMNIOS. ? INCREASED HEART RATE. ? Impression dictated by: Brenda Gibbs M.D. ??04/04/2025 1:12 PM ? Dictation Location: RADIO-PC-30 ? Electronically authenticated by: [id number] ??Y ?? Date: 04/04/2025 ??13:12 ? Dictated By: ?Brenda Gibbs M.D. ? Signed By: ?04/04/25 1315 ? DD/ 1312 ? TD/TT: ? Clinical Haematologist: Procedure Note Radiology, Radiologist, - 04/04/[address] [address] Ultrasound Report Signed Patient: GRETEL MARTINEZ [facility]#: [id number] : 2000Acct:[id number] Age/Sex: 24 / FADM Date: 04/04/25 Loc: [facility] 250-[address]: Petty Baez Ordering Physician: Petty Beaz Date of Service: 04/04/25 Procedure(s): US OB BPP w non-stress Accession Number(s): [id number] cc: Petty Baez; Physician,Non-Staff MJennifer [place] [address] Patient Name: GRETEL MARTINEZ MRN: [facility]:[id number] date: 2000 Sex: F Assigned Patient Location: [facility] Current Patient Location: [facility] Accession/Order Number: [id number] Exam Date: 04/04/2025 12:48 Report Date: 04/04/2025 13:12 At the request of: PETTY BAEZ Procedure: US OB BPP w non-stress BIOPHYSICAL PROFILE: CLINICAL INFORMATION: Oligohydramnios COMPARISON: 03/31/2025 There is a single live intrauterine gestation in cephalic presentation.The reported gestational age is 32 weeks 0 days. The heart ratemeasures 185 beats per minute when measured on 2 separate occasions. FINDINGS: TONE: 1 or more episodes of activity extension and flexion of extremity or opening and closing of the hand [Y] 2/2 GROSS BODY MOVEMENTS: 3 or more discrete body or limb movements [Y] 2/2 BREATHING MOVEMENTS: 1 or more episodes of breathing lastingat least 30 seconds [Y] 2/2 ELI: A single deepest vertical pocket of amniotic fluid greater than 2 cm [Y] 2/2 ELI: 6.2 cm. The 2.5th percentile is 7.7 cm Total score: 8/8 US/US OB BPP w non-stress IMPRESSION: NORMAL BIOPHYSICAL PROFILE. CONTINUED OLIGOHYDRAMNIOS. INCREASED HEART RATE. Impression dictated by: Brenda Gibbs M.D. 04/04/2025 1:12 PM Dictation Location: [facility] Electronically authenticated by: [id number] Y Date: 3:12 Dictated By: Brenda Gibbs M.D. Signed By:04/04/251314 DD/ 1312 TD/TT: Clinical Haematologist: Authorizing ProviderResult TypeResult StatusPetty Baez [facility] Final Result * US OB 14+ weeks anatomy scan (03/30/2025 3:06 PM EST)Anatomical Region LateralityModalityBodyUltrasoundSpecimen (Source)Anatomical Location / LateralityCollection Method / VolumeCollection TimeReceived Time03/30/2025 3:06 PM EST Narrative 03/30/2025 3:06 PM EST THIS EXAM WAS PERFORMED AT [facility] NAME: ??JUAN TO : 2000 SEX: F Accession Number: [id number] ORDERING PHYSICIAN: CATRACHITO BLAND REFERRING PHYSICIAN: DEMARCUS GOLD Coding Procedures ? 01256: Ultrasound, uterus, real time with image documentation, and maternal evaluation ? plus detailed anatomic examination, transabdominal approach;single or first gestation ? [address]4048: OB Transvaginal ? 88860: Doppler velocimetry, ; umbilical artery Indication Screening for Anatomic Survey, Screening for cervical length, IUGR-Poor growth, Gestational diabetes, Carrier for Alpha thalassemia . History OB History ? 2. Para 1 ? [id number] Current Cell free DNA ?low risk analysis Maternal Assessment Physical Exam ??Height 170 cm, 5 ft 7 in. Weight 91 kg, 201 lb. Initial weight 81 kg, 178 lb. BMI 31.48 kg/m???. Initial ? BMI 27.88 kg/m???. Weight gain 10 kg, 23 lb Method Transabdominal and transvaginal ultrasound examination. View: Suboptimal view: limited by late gestational age. Medical Tin Can Feeder Tin Can Feeder accepted?Diana Valente Alcantara . Number of fetuses: 1 Dating LMP on: ?08/23/2024 GA by LMP ?31 w + 2 d TYREL by LMP: ?05/30/2025 Previous Ultrasound on: ?11/05/2024 Type of prior assessment: ?GA GA at prior assessment date ?10 w + 1 d GA by previous U/S ? 30 w + 6 d TYREL by previous Ultrasound: ?06/02/2025 Ultrasound examination on: ? 03/30/2025 GA by U/S based upon: ??AC, BPD, Femur, HC GA by U/S ?29 w + 5 d TYREL by U/S: ?06/10/2025 Assigned: ?based on the LMP, selected on 03/30/2025 Assigned GA (weeks days) ? 31 w + 2 d Assigned TYREL: ??05/30/2025 General Evaluation Cardiac activity Present. FHR 134 bpm. movements: visualized. Presentation: cephalic Placenta: Placental site: left lateral, away from cervical os Umbilical cord: Cord vessels: 3 vessel cord. Insertion site: normal insertion Amniotic fluid: Amount of AF: normal amount. MVP 3.3 cm. ELI 10.1 cm. Q1 2.7 cm, Q2 2.3 cm, Q3 3.2 cm, Q4 1.9 cm Biometry Standard BPD ?77.0 mm 30w 6d 28% Hadlock OFD ?95.7 mm 30w 6d 39% Bernadine HC ? 273.7 mm ?29w 6d 2% Hadlock Cerebellum tr ??38.6 mm 31w 3d 33% Hill AC ? 264.9 mm ?30w 4d 27% Hadlock Femur 51.5 mm 27w 4d <1% Hadlock Humerus 47.4 mm 27w 6d <1% Bernadine HC / AC ?1.03 EFW ? 1,419 g ? 5% Hadlock EFW (lb) ? 3 lb EFW (oz) ? 2 oz EFW by: ?Hadlock ([id number]) Extended Tibia ??47.4 mm 28w 5d 4% Bernadine Foot 52.6 mm <1% Chitty [employer] Supervisor ? 3.3 mm CM ? 4.8 mm ?? 3% Nicolaides Inner IOD ?16.4 mm Outer IOD ?42.0 mm Head / Face / Neck Cephalic index 0.80 ? 60% Nicolaides Nasal bone: ?present Extremities / Bony Struc FL / BPD ? 0.67 FL / HC ?0.19 FL / AC ?0.19 Other Structures FHR ?134 bpm Anatomy The following structures appear normal: Head/Neck: Cranium. Lateral ventricles. Choroid plexus. Cavum septi pellucidi. Cerebellum. Cisternamagna. ? Parenchyma. Face: Lips. Nose. Nasal bone. Orbits. Heart/Thorax: Situs. Aortic arch view. Cardiac position. Cardiac axis. Cardiac size. Cardiac rhythm. Abdomen: Stomach. Kidneys. Bladder. Right renal artery. Left renal artery. Extremities/Skeleton: Left upper arm. Left forearm. Right upper leg. Left upper leg. Left lower leg. Skeleton The following structures could not be adequately visualized: Head / Neck ?Midline falx. Vermis. Face ?? Profile. Maxilla. Heart / Thorax 4-chamber view. 3-vessel view. 5-zygwyk-pmgeurv view. Interventricular septum. Greatvessels. ? Right lung. Left lung. Diaphragm. Abdomen ?Abdom. wall. Cord insertion. Spine: Cervical spine. Thoracic spine. Lumbar spine. Sacral spine. Extremities / ??Right lower leg. Right foot. Left foot. Skeleton The following structures could not be examined: Head / Neck ?Neck. Face ?? Mandible. Heart / Thorax RVOT view. LVOT view. Bicaval view. Ductal arch view. Abdomen ?Genitals. Extremities / ??Right upper arm. Right forearm. Right hand. Left hand. Skeleton Doppler Umbilical Artery: normal PI ?1.15 ? 91% ? Ebbing PS ?45.86 ??cm/s ?47% ? Ebbing TAmax ??26.02 ?? cm/s ?17% ? Ebbing MD ?13.80 ??cm/s S / D ??3.11 ?70% ? Jay Maternal Structures Uterus Visualized Cervix Visualized ? Approach - Transvaginal: Cervical length 3.32 cm Right Ovary ?Visualized ? Size 3.2 cm x 2.5 cm x 2.3 cm. Vol 9.3 cm? Cyst(s) Size 14 mm x 12 mm x 11 mm. Mean 12.3 mm. Vol 0.968 cm??? Left Ovary ? Visualized ? Size 2.0 cm x 1.5 cm x 1.3 cm. Vol 2.1 cm??? Cul de Sac ? Visualized. No free fluid visualized Impression Single live intrauterine consistent with 31w 2d with an TYREL of 05/30/2025. growth restriction with EFW measuring at the 5%. AC measures at the 27%. The femur is measuring less than the 3rd percentile. The femur to foot ratio = 1.0 which is within normal limits. The HC measures less than the 3rd percentile for the gestational age but reference biometric measurement within 2 SD of the mean (Lorenzo and colleagues, 1984). Transvaginal cervical length measures 3.32 cm. Amniotic fluid MVP measures 3.3 cm. Recommendations Please see MFM documentation from today. The patient is scheduled in 1 week for Doppler and MVP. The patient is scheduled in 3 week(s) to complete anatomic survey and Dopplers. Subsequent follow up or other follow up as clinically determined by primary OB provider unless otherwise specified by MFM. Results forwarded to ordering provider so they can follow up with the patient as necessary. The copy-to physician of this order is DEMARCUS Quarles The ordering physician of this order is CATRACHITO Shearer Procedure Note Radiology, Radiologist, MD - 03/30/2025 THIS EXAM WAS PERFORMED AT [facility] NAME: JUAN TO : 2000 SEX: F Accession Number: [id number] ORDERING PHYSICIAN: CATRACHITO BLAND REFERRING PHYSICIAN: DEMARCUS GOLD Coding Procedures 48880: Ultrasound, uterus, real time with image documentation, and maternal evaluation plus detailed anatomic examination, transabdominalapproach;single or first gestation 93485: OB Transvaginal 60634: Doppler velocimetry, ; umbilical artery Indication Screening for Anatomic Survey, Screening for cervical length, IUGR-Poorfetal growth, Gestational diabetes, Carrier for Alpha thalassemia . History OB History 2. Para 1 [id number] Current Cell free DNA low risk analysis Maternal Assessment Physical Exam Height 170 cm, 5 ft 7 in. Weight 91 kg, 201 lb. Initialweight 81 kg, 178 lb. BMI 31.48 kg/m???. Initial BMI 27.88 kg/m???. Weight gain 10 kg, 23 lb Method Transabdominal and transvaginal ultrasound examination. View: Suboptimalview: limited by late gestational age. Medical Tin Can Feeder Tin Can Feeder accepted?Diana Vredinb Alcantara . Number of fetuses: 1 Dating LMP on: 08/23/2024 GA by LMP 31 w + 2 d TYREL by LMP: 05/30/2025 Previous Ultrasound on: 11/05/2024 Type of prior assessment: GA GA at prior assessment date 10 w + 1 d GA by previous U/S 30 w + 6 d TYREL by previous Ultrasound: 06/02/2025 Ultrasound examination on: 03/30/2025 GA by U/S based upon: AC, BPD, Femur, HC GA by U/S 29 w + 5 d TYREL by U/S: 06/10/2025 Assigned: based on the LMP, selected on 03/30/2025 Assigned GA (weeks days) 31 w + 2 d Assigned TYREL: 05/30/2025 General Evaluation Cardiac activity Present. FHR 134 bpm. movements: visualized.Presentation: cephalic Placenta: Placental site: left lateral, away from cervical os Umbilical cord: Cord vessels: 3 vessel cord. Insertion site: normalinsertion Amniotic fluid: Amount of AF: normal amount. MVP 3.3 cm. ELI 10.1 cm. Q12.7 cm, Q2 2.3 cm, Q3 3.2 cm, Q4 1.9 cm Biometry Standard BPD 77.0 mm 30w 6d 28% Hadlock OFD 95.7 mm 30w 6d 39% Bernadine HC 273.7 mm 29w 6d 2% Hadlock Cerebellum tr 38.6 mm 31w 3d 33% Hill AC 264.9 mm 30w 4d 27% Hadlock Femur 51.5 mm 27w 4d <1% Hadlock Humerus 47.4 mm 27w 6d <1% Bernadine HC / AC 1.03 EFW 1,419 g 5% Hadlock EFW (lb) 3 lb EFW (oz) 2 oz EFW by: Hadlock (YFU-FH-[id number]-FL) Extended Tibia 47.4 mm 28w 5d 4% Bernadine Foot 52.6 mm <1% Ch[employer] Supervisor 3.3 mm CM 4.8 mm 3% Nicolaides Inner IOD 16.4 mm Outer IOD 42.0 mm Head / Face / Neck Cephalic index 0.80 60% Nicolaides Nasal bone: present Extremities / Bony Struc FL / BPD 0.67 FL / HC 0.19 FL / AC 0.19 Other Structures FHR 134 bpm Anatomy The following structures appear normal: Head/Neck: Cranium. Lateral ventricles. Choroid plexus. Cavum septipellucidi. Cerebellum. Cisterna magna. Parenchyma. Face: Lips. Nose. Nasal bone. Orbits. Heart/Thorax: Situs. Aortic arch view. Cardiac position. Cardiac axis.Cardiac size. Cardiac rhythm. Abdomen: Stomach. Kidneys. Bladder. Right renal artery. Left renalartery. Extremities/Skeleton: Left upper arm. Left forearm. Right upper leg. Leftupper leg. Left lower leg. Skeleton The following structures could not be adequately visualized: Head / Neck Midline falx. Vermis. Face Profile. Maxilla. Heart / Thorax 4-chamber view. 3-vessel view. 1-hejncl-ffefprt view. Interventricular septum. Great vessels. Right lung. Left lung. Diaphragm. Abdomen Abdom. wall. Cord insertion. Spine: Cervical spine. Thoracic spine. Lumbar spine. Sacral spine. Extremities / Right lower leg. Right foot. Left foot. Skeleton The following structures could not be examined: Head / Neck Neck. Face Mandible. Heart / Thorax RVOT view. LVOT view. Bicaval view. Ductal arch view. Abdomen Genitals. Extremities / Right upper arm. Right forearm. Right hand. Left hand. Skeleton Doppler Umbilical Artery: normal PI 1.15 91% Ebbing PS 45.86 cm/s 47% Ebbing TAmax 26.02 cm/s 17% Ebbing MD 13.80 cm/s S / D 3.11 70% Jay Maternal Structures Uterus Visualized Cervix Visualized Approach - Transvaginal: Cervical length 3.32 cm Right Ovary Visualized Size 3.2 cm x 2.5 cm x 2.3 cm. Vol 9.3 cm??? Cyst(s) Size 14 mm x 12 mm x 11 mm. Mean 12.3 mm. Vol 0.968 cm??? Left Ovary Visualized Size 2.0 cm x 1.5 cm x 1.3 cm. Vol 2.1 cm??? Cul de Sac Visualized. No free fluid visualized Impression Single live intrauterine consistent with 31w 2d with an TYREL of 05/30/2025. growth restriction with EFW measuring at the 5%. AC measuresat the 27%. The femur is measuring less than the 3rd percentile. The femur to footratio = 1.0 which is within normal limits. The HC measures less than the 3rd percentile for the gestational agebut reference biometric measurement within 2 SD of the mean (Lorenzo and colleagues, 1984). Transvaginal cervical length measures 3.32 cm. Amniotic fluid MVP measures 3.3 cm. Recommendations Please see MFM documentation from today. The patient is scheduled in 1 week for Doppler and MVP. The patient is scheduled in 3 week(s) to complete anatomic survey andDopplers. Subsequent follow up or other follow up as clinically determined byprimary OB provider unless otherwise specified by MFM. Results forwarded to ordering provider so they can follow up with thepatient as necessary. The copy-to physician of this order is DEMARCUS Quarles The ordering physician of this order is CATRACHITO Shearer Authorizing ProviderResult TypeResult StatusCoresubhash Gold DOI OB US PROCEDURES Final Result * AMNISURE (03/28/2025 2:35 PM EST)ComponentValueRef RangeTest MethodAnalysis TimePerformed AtPathologist SignatureTBH AMNISURENEGATIVENEGATIVETBHSpecimen (Source)Anatomical Location / LateralityCollection Method / VolumeCollection TimeReceived Time03/28/2025 2:35 PM EST03/28/2025 2:40 PM EST Narrative CLIN[facility]NC - 03/28/2025 2:54 PM EST Authorizing ProviderResult TypeResult StatusCoresubhash Gold DOL BLOOD ORDERABLES Final ResultPerforming OrganizationAddressCity/State/ZIP CodePhone Number CLINIS[facility]NC [facility] * US OB follow up transabdominal approach (03/23/2025 2:04 PM EST)Anatomical RegionLateralityModalityBodyUltrasoundSpecimen (Source)Anatomical Location / LateralityCollection Method / VolumeCollection TimeReceived Time03/24/2025 11:27 AM EST Addenda Addendum by Geo Lopez MD on 03/24/2025 1:36 PM EST ADDENDUM #1 Above findings are consistent with IUGR and Oligohydramnios. ELECTRONICALLY SIGNED BY: Geo Lopez MD Impressions 03/24/2025 11:56 AM EST 1. Single, live intrauterine , current sonographic age of 29 weeks and 0 days, with an estimated date of delivery of June 08, 2025 2. Current estimated weight 1269 grams (5.3% weight by percentile) 3. ELI 8 cm * ??Estimated Weight (g) by Percentile is based upon an accurate estimated age based onlast menstrual period. ?? TRANSCRIBED BY: ? ELECTRONICALLY SIGNED BY: Geo Lopez MD Narrative 03/24/2025 11:56 AM EST FINDINGS: Comparison January 20, 2025. A single, live intrauterine is present with normal cardiac rate of 144 beats per minute. Normal activity and amniotic fluid volume. Amniotic fluid index is 8 cm. ??Morphology isgrossly normal. The current sonographic age is 29 weeks and 0 days, based on the following measurements: ?BPD ? 7.4 cm (29 weeks, 4 days) ?Head Circumference ?26.8 cm (29 weeks, 1 day) ?Abdominal Circumference ?24.2 cm (28 weeks, 3 days) ?Femur Length ?5.4 cm (28 weeks, 5 days) ?Presentation ? Cephalic ? Weight (g) by Percentile ??4.6 % * (prior 5.3%) These measurements result in an estimated date of delivery of June 08, 2025. ?? The current estimated weight is 1269 grams (2 pounds, 13 ounces). ?? Procedure Note Geo Lopez MD - 03/24/2025 FINDINGS: Comparison January 20, 2025. A single, live intrauterine is present with normal cardiacrate of 144 beats per minute. Normal activity and amniotic fluidvolume. Amniotic fluid index is 8 cm. Morphology is grossly normal. Thecurrent sonographic age is 29 weeks and 0 days, based on the followingmeasurements: BPD 7.4 cm (29 weeks, 4 days) Head Circumference 26.8 cm (29 weeks, 1 day) Abdominal Circumference 24.2 cm (28 weeks, 3 days) Femur Length 5.4 cm (28 weeks, 5 days) Presentation Cephalic Weight (g) by Percentile 4.6 % * (prior 5.3%) These measurements result in an estimated date of delivery of May. The current estimated weight is 1269 grams (2 pounds, 13ounces). IMPRESSION: 1. Single, live intrauterine , current sonographic age of 29weeks and 0 days, with an estimated date of delivery of May 2. Current estimated weight 1269 grams (5.3% weight by percentile) 3. ELI 8 cm * Estimated Weight (g) by Percentile is based upon an accurateestimated age based on last menstrual period. TRANSCRIBED BY: ELECTRONICALLY SIGNED BY: Geo Lopez MD Authorizing ProviderResult TypeResult StatusAmy Kathryn AWAD OB US PROCEDURES Edited Result - Final * (ABNORMAL) RECURRENT VAGINITIS (HTRX) (01/20/2025 11:02 AM EDT)ComponentValue Ref RangeTest MethodAnalysis TimePerformed AtPathologist SignatureATOPOBIUM EDEWDIG26.582(A)19.961 - 24.689 ppm01/21/2025 5:38 AM EDTHealthTrackRx at LabLogansport [facility] HospitalATOPOBIUM VAGINAEDetected(A)19.961 - 24.689 ppm01/21/2025 5:38 AM EDT [facility]Log[facility] HospitalBVAB 2,3 (BACTERIAL VAGINOSIS ASSOCIATED BACTERIA 2, 3); MOBILUNCUS AIF954.961 - 24.689 ppm01/21/2025 5:38 AM EDTHealthTrackRx at LabPortBVAB 2,3 (BACTERIAL VAGINOSIS ASSOCIATED BACTERIA 2, 3); MOBILUNCUS SPP Not Gkvnqkfd69.961 - 24.689 ppm01/21/2025 5:38 AM EDTHealthTrackRx at LabPort JODY ALBICANS, PARAPSILOSIS, OGRQQECYDI469.000 - 30.347 ppm01/21/2025 5:38 AM EDTHealthTrackRx at LabPortCANDIDA ALBICANS, PARAPSILOSIS, TROPICALISNot Qibvhktm70.000 - 30.347 ppm01/21/2025 5:38 AM EDTHealthTrackRx at LabPort JODY CSPJQZBT178.000 - 31.618 ppm01/21/2025 5:38 AM EDTHealthTrackRx at LabPortCANDIDA GLABRATANot Ovyeuabc07.000 - 31.618 ppm01/21/2025 5:38 AM EDT [facility] MRZIPD940.000 - 30.873 ppm01/21/2025 5:38 AM EDTHealthTrackRx at LabPortCANDIDA KRUSEINot Lldggktd68.000 - 30.873 ppm 01/21/2025 5:38 AM EDTHealthTrackRx at LabPortCHLAMYDIA HRLKXIDKAHR501.000 - 31.586 ppm01/21/2025 5:38 AM EDTHealthTrackRx at [facility] HospitalCHLAMYDIA TRACHOMATIS Not Arrwpdyj76.000 - 31.586 ppm01/21/2025 5:38 AM EDTHealthTrackRx at [facility] GARDNERELLA VSGQBEKNW569.961 - 24.689 ppm01/21/2025 5:38 AM EDTHealthTrackRx at [facility] HospitalGARDNERELLA VAGINALISNot Hobhicbs47.961 - 24.689 ppm01/21/2025 5:38 AM EDTHealthTrackRx at [facility]PortMEGASPHAERA (TYPES 1, 2)019.961 - 24.689 ppm 01/21/2025 5:38 AM EDTHealthTrackRx at [facility] HospitalMEGASPHAERA (TYPES 1, 2)Not Ibbntjgh14.961 - 24.689 ppm01/21/2025 5:38 AM EDTHealthTrack[facility] at [facility] NEISSERIA JRFCWXAOFHG998.000 - 32.587 ppm01/21/2025 5:38 AM EDTHealthTrackRx at [facility] HospitalNEISSERIA GONORRHOEAENot Syczvupl79.000 - 32.587 ppm01/21/2025 5:38 AM EDTHealthTrackRx at [facility] HospitalTRICHOMONAS WRMWECAXN184.000 - 31.995 ppm 01/21/2025 5:38 AM EDTHealthTrackRx at [facility] HospitalTRICHOMONAS VAGINALISNot Wwtilgcr52.000 - 31.995 ppm01/21/2025 5:38 AM EDTHealthTrackRx at [facility] MYCOPLASMA IUIDDULFNH205.961 - 24.689 ppm01/21/2025 5:38 AM EDTHealthTrackRx at [facility] HospitalMYCOPLASMA GENITALIUMNot Jctutjns85.961 - 24.689 ppm01/21/2025 5:38 AM EDTHealthTrackRx at [facility] HospitalSpecimen (Source)Anatomical Location / LateralityCollection Method / VolumeCollection TimeReceived TimeTissue 01/20/2025 11:02 AM EDT1 1:53 AM EDT Narrative Authorizing ProviderResult TypeResult StatusPetty Baez NPLAB BLOOD ORDERABLESFinal ResultPerforming OrganizationAddressCity/State/ZIP CodePhone Number [facility] [address] [address] * IGP,APTIMA HPV,AGE GDLN (01/20/2025 10:00 AM EDT)ComponentValueRef RangeTest MethodAnalysis TimePerformed AtPathologist SignatureAGE GDLN ACOG TESTINGNote. TBHComment: ?? TESTS ? RESULT ??FLAG ??UNITS ?REF RANGE ??LAB ?? Clinician Provided Cytology Information ?? Source.............Cervix ?? No. of containers..01 ThinPrep Vial Age Algo ACOG Kelsie... ??21-29 ? 01 ?FLAG LEGEND: ?L-Low Normal,H-High Normal,LL-Alert Low,HH-Alert High <-Panic Low,>-Panic High,A-Abnormal,AA-Critical Abnormal Performed at: 01 =G ?[facility] ?? [address] [place] ??[address] ?? She Matthews MD, IGP, RFX APTIMA HPV ASCUNote.TBHComment: ?? TESTS ? RESULT ??FLAG ??UNITS ?REF RANGE ??LAB DIAGNOSIS: ?02 ?? NEGATIVE FOR INTRAEPITHELIAL LESION OR MALIGNANCY. Specimen adequacy: ?02 ?? Satisfactory for evaluation. No endocervical component is identified. Performed by: ? 02 ?? Nomi Carr [employer] Cutter (ASCP) . ? 02 Note: ? Note ?02 ?? The Pap smear is a screening test designed to aid in the ?? detection of premalignant and malignant conditions of the ?? uterine cervix. ??It is not a diagnostic procedure and ?? should not be used as the sole means of detecting cervical ?? cancer. ??Both false-positive and false-negative reports do ?? occur. Test Methodology: ? Note ?02 ?? This liquid based ThinPrep(R) pap test was screened with ?? the use of an image guided system. . ? 02 ?? The HPV DNA reflex criteria were not met with this specimen ?? result therefore, no HPV testing was performed. ?FLAG LEGEND: ?L-Low Normal,H-High Normal,LL-Alert Low,HH-Alert High <-Panic Low,>-Panic High,A-Abnormal,AA-Critical Abnormal Performed at: 02 WB ?[facility] ?? [address] [place], [place] ??[address] ?? She Matthews MD, Performed at: ??=G - [facility] [address] [place] ??[id number] [place] Supervisor: She Matthews MD, Phone: ??[phone] Performed at: ??WB - [facility] [address] [place], [place] ??[id number] [place] Supervisor: She Matthews MD, Phone: ??[phone] Specimen (Source)Anatomical Location / LateralityCollection Method / Volume Collection TimeReceived Time01/20/2025 10:00 AM EDT1 6:57 AM EDT Narrative CLINISYNC - 01/27/2025 8:12 PM EDT SPATULA-ALONE CERVIX Authorizing ProviderResult TypeResult StatusKristina Sasha NPLAB BLOOD ORDERABLESFinal ResultPerforming OrganizationAddressCity/State/ZIP CodePhone Number CLINIS[facility]NC [facility] * US OB CERVICAL LENGTH (01/20/2025 9:53 AM EDT)Anatomical RegionLaterality ModalityOtherSpecimen (Source)Anatomical Location / LateralityCollection Method / VolumeCollection TimeReceived Time01/20/2025 9:53 AM EDT Narrative 01/20/2025 9:56 AM EDT [facility] ?[address] ? [place] [address] ? Ultrasound Report ? Signed ? Patient: GRETEL MARTINEZ A ? MR#: [id number] ?? : 2000 ?Acct:[id number] ?? Age/Sex: 24 / F ?ADM Date: 01/20/25 ?? Loc: US ? Attending Dr: Petty Baez ? Ordering Physician: Petty Baez ?? Date of Service: 01/20/25 ?? Procedure(s): US OB cervical length ?? Accession Number(s): [id number] ? cc: Petty Baez; Tracy Quesada D.O. ? [facility] ? [address] ? [place] [address] ? Patient Name: ?? GRETEL MARTINEZ ? MRN: [id number]:[id number] ? date: 2000 ?Sex: F ?? Assigned Patient Location: US ?? Current Patient Location: US ?? Accession/Order Number: [id number] ?? Exam Date: 01/20/2025 ??08:43 ?Report Date: 01/20/2025 ??09:53 ? At the request of: ?? PETTY ??SASHA ? Procedure: ??US OB cervical length ? CLINICAL DATA: Anatomy survey ? COMPARISON: None ? ULTRASOUND OB ANATOMY ? There is a single live intrauterine gestation in cephalic presentation. ??There ?? is cardiac and somatic activity with heart rate of 165 bpm. ??The ?? amniotic fluid volume is subjectively normal. ??The placenta is posterior and ?? fundal . ??It is normal in appearance. ??The neural axis and all 4 extremities ?? were surveyed by the boiler operator and no abnormalities were detected. ??The ?? stomach, bladder, kidneys, four-chamber heart with right and left ?? ventricular outflow tracts, diaphragm, facial features and female gender are ?? seen. ??The following measurements were obtained: ?? Biparietal diameter ? 4.8 cm ?? 20 weeks 4 days ?19 % ?? Head circumference ? 18.3 cm ?? 20 weeks 5 days ?13% ?? Abdominal circumference ?15.9 cm ?? 21 weeks 0 days ?31% ?? Femur length ? 3.2 cm ?? 20 weeks 0 days ? 5% ?? The composite ultrasound age based on these measurements is 20 weeks 4 days ?? +/- 1 week 3 days. ??The estimated date of delivery is 06/05/2025. ??The ?? weight is approximately 13 ounces +/- 2 ounces (10%). ? US/US OB cervical length ?? IMPRESSION: ? SINGLE LIVE INTRAUTERINE GESTATION WITH ULTRASOUND AGE OF 20 WEEKS 4 DAYS. ? ULTRASOUND OB CERVICAL LENGTH ? The cervix was evaluated with the transvaginal probe. ??It is closed and ?? measures present 4.7 cm in length. ??There is no evidence of previa. ? IMPRESSION: ? NORMAL CLOSED CERVIX. ? Impression dictated by: Brenda Gibbs M.D. ??01/20/2025 9:53 AM ? Dictation Location: [facility]--02 ? Electronically authenticated by: [id number] ??Y ?? Date: 01/20/2025 ??09:53 ? Dictated By: ?Brenda Gibbs M.D. ? Signed By: ?01/20/25 0956 ? DD/ 0953 ? TD/TT: ? Clinical Haematologist: Procedure Note Radiology, Radiologist, - 01/20/2025 [place] [address] Ultrasound Report Signed Patient: GRETEL MARTINEZ AMR#: [id number] : 2000Acct:[id number] Age/Sex: 24 / FADM Date: 01/20/25 Loc: US Attending Dr: Petty Baez Ordering Physician: Petty Baez Date of Service: 01/20/25 Procedure(s): US OB cervical length Accession Number(s): [id number] cc: Petty Baez; Tracy Quesada D.O. The [place] [address] Patient Name: GRETEL MARTINEZ MRN: [facility]:[id number] date: 2000 Sex: F Assigned Patient Location: Current Patient Location: US Accession/Order Number: [id number] Exam Date: 01/20/2025 08:43 Report Date: 01/20/2025 [...] and all 4extremities were surveyed by the boiler operator and no abnormalities were detected. The stomach, [...] Gibbs M.D. 01/20/2025 9:53 AM Dictation Location: [place] [address] Electronically authenticated by: [id number] Y Date: 9:53 Dictated By: Brenda Gibbs M.D. Signed By:01/20/2556 DD/ 2 TD/TT: Clinical Haematologist: Authorizing ProviderResult TypeResult StatusKrmallory Baez NPCLINISYNC IMAGING Final Result * OB ANATOMY (01/20/2025 9:53 AM EDT)Anatomical RegionLateralityModalityOther Specimen (Source)Anatomical Location / LateralityCollection Method / Volume Collection TimeReceived Time01/20/2025 9:53 AM EDT Narrative 01/20/2025 9:56 AM EDT [facility] ?[address] ? [place] [address] ? Ultrasound Report ? Signed ? Patient: GRETEL MARTINEZ ? MR#: [id number] ?? : 2000 ?Acct:[id number] ?? Age/Sex: 24 / F ?ADM Date: 01/20/25 ?? Loc: US ? Attending Dr: Petty Baez ? Ordering Physician: Petty Baez ?? Date of Service: 01/20/25 ?? Procedure(s): US OB anatomy ?? Accession Number(s): [id number] ? cc: Petty Baez; Tracy Quesada D.O. ? [facility] ? [address] ? [place] [address] ? Patient Name: ?? GRETEL MARTINEZ ? MRN: [id number]:[id number] ? date: 2000 ?Sex: F ?? Assigned Patient Location: US ?? Current Patient Location: US ?? Accession/Order Number: [id number] ?? Exam Date: 01/20/2025 ??08:43 ?Report Date: 01/20/2025 ??09:53 ? At the request of: ?? PETTY ??SASHA ? Procedure: ??US OB cervical length ? CLINICAL DATA: Anatomy survey ? COMPARISON: None ? ULTRASOUND OB ANATOMY ? There is a single live intrauterine gestation in cephalic presentation. ??There ?? is cardiac and somatic activity with heart rate of 165 bpm. ??The ?? amniotic fluid volume is subjectively normal. ??The placenta is posterior and ?? fundal . ??It is normal in appearance. ??The neural axis and all 4 extremities ?? were surveyed by the boiler operator and no abnormalities were detected. ??The ?? stomach, bladder, kidneys, four-chamber heart with right and left ?? ventricular outflow tracts, diaphragm, facial features and female gender are ?? seen. ??The following measurements were obtained: ?? Biparietal diameter ? 4.8 cm ?? 20 weeks 4 days ?19 % ?? Head circumference ? 18.3 cm ?? 20 weeks 5 days ?13% ?? Abdominal circumference ?15.9 cm ?? 21 weeks 0 days ?31% ?? Femur length ? 3.2 cm ?? 20 weeks 0 days ? 5% ?? The composite ultrasound age based on these measurements is 20 weeks 4 days ?? +/- 1 week 3 days. ??The estimated date of delivery is 06/05/2025. ??The ?? weight is approximately 13 ounces +/- 2 ounces (10%). ? US/US OB anatomy ?? IMPRESSION: ? SINGLE LIVE INTRAUTERINE GESTATION WITH ULTRASOUND AGE OF 20 WEEKS 4 DAYS. ? ULTRASOUND OB CERVICAL LENGTH ? The cervix was evaluated with the transvaginal probe. ??It is closed and ?? measures present 4.7 cm in length. ??There is no evidence of previa. ? IMPRESSION: ? NORMAL CLOSED CERVIX. ? Impression dictated by: Brenda Gibbs M.D. ??01/20/2025 9:53 AM ? Dictation Location: [place] [address] ? Electronically authenticated by: [id number] ??Y ?? Date: 01/20/2025 ??09:53 ? Dictated By: ?Brenda Gibbs M.D. ? Signed By: ?01/20/25 0956 ? DD/ 0953 ? TD/TT: ? Clinical Haematologist: Procedure Note Radiology, Radiologist, - 01/20/2025 [place] [address] Ultrasound Report Signed Patient: GRETEL MARTINEZ AMR#: [id number] : 2000Acct:[id number] Age/Sex: 24 / FADM Date: 01/20/25 Loc: US Attending Dr: Petty Baez Ordering Physician: Petty Baez Date of Service: 01/20/25 Procedure(s): US OB anatomy Accession Number(s): [id number] cc: Petty Baez; Tracy Quesada D.O. The [place] [address] Patient Name: GRETEL MARTINEZ MRN: [id number] date: 2000 Sex: F Assigned Patient Location: Current Patient Location: US Accession/Order Number: [id number] Exam Date: 01/20/2025 08:43 Report Date: 01/20/2025 [...] and all 4extremities were surveyed by the boiler operator and no abnormalities were detected. The stomach, [...] Gibbs M.D. 01/20/2025 9:53 AM Dictation Location: [place] [address] Electronically authenticated by: [id number] Y Date: 9:53 Dictated By: Brenda Gibbs M.D. Signed By:01/20/25 0956 DD/ 0953 TD/TT: Clinical Haematologist: Authorizing ProviderResult TypeResult StatusKrhcakaa Sasha NPCLINISYNC IMAGING Final Result * PAP TEST, EXTERNAL (01/20/2025 12:00 AM EDT) Narrative Authorizing ProviderResult TypeResult StatusFazio Nurse [facility] ObLAB CYTOLOGY ORDERABLESFinal ResultPerforming OrganizationAddressCity/State/ZIP CodePhone Number EXTERNAL LAB from Last 3 Months Insurance Care Teams Team MemberRelationshipSpecialtyStart DateEnd Date Tracy Quesada MD [address] [place] [id number] [facility]
--- OUTSIDE RECORDS SUMMARY | 2025-04-11 12:45 | XMS_ITS | Encounter Summary ---
Author Organization [facility] Address [address] [place] [address] Care Team Providers Care Hotel Assistant General Manager Name Role Phone Tracy Quesada MD Primary Care Provider [phone] Encounter Details DateTypeDepartmentCare Team (Latest Contact Info)Kxaqssjtbre07/16/2025amboo flowsheet [facility] [address] [place] [address] [place] [address] Chelsie Peralta PA [address] [place] [address] Dr [place], [place] [address] Social History Tobacco UseTypesPacks/DayYears UsedDateSmoking Tobacco: NeverSmokeless Tobacco: NeverAlcohol UseStandard Drinks/WeekCommentsNot Currently0 (1 standard drink = 0.6 oz pure alcohol)Estimated Date of RdheofsiRpthyrmtOvi38/09/2026ased on last menstrual period of 08/23/2024Sex and Gender InformationValueDate Recorded Sex Assigned at BirthNot on fileLegal ElkLmbjsz03/15/2023 10:12 PM EDTGender IdentityNot on fileSexual OrientationNot on filedocumented as of this encounter Plan of Treatment DateTypeDepartmentCare Team (Latest Contact Info)Rxdgktexswr25/30/2025 2:20 PM ESTRoutine [facility] [address] [place] [address] [place] [address] Chelsie Peralta PA [address] [place] [address] Dr [place], [facility]11 documented as of this encounter Visit Diagnoses Not on filedocumented in this encounter Care Teams Team MemberRelationshipSpecialtyStart DateEnd Date Tracy Quesada MD [address] [place] [phone] PCP - GeneralFamily Medicine11/26/23documented as of this encounter
--- OUTSIDE RECORDS SUMMARY | 2025-04-11 12:45 | XMS_ITS | Encounter Summary ---
Author Organization [facility] Address [address] [place] [address] Care Team Providers Care Biomedical Scientist Name Role Phone Tracy Quesada MD Primary Care Provider [phone] Encounter Details DateTypeDepartmentCare Team (Latest Contact Info)Glmbmhrfmpt77/11/2025linisync Result Encounter [facility]S External Department Unsolicited Demarcus Gold DO [address] [facility] [address] [place], [facility]11 Social History Tobacco UseTypesPacks/DayYears UsedDateSmoking Tobacco: NeverSmokeless Tobacco: NeverAlcohol UseStandard Drinks/WeekCommentsNot Currently0 (1 standard drink = 0.6 oz pure alcohol)Estimated Date of UqpqytgzPsdgqrlvIvv85/09/2026ased on last menstrual period of 08/23/2024Sex and Gender InformationValueDate Recorded Sex Assigned at BirthNot on fileLegal HacImeahk75/15/2023 10:12 PM EDTGender IdentityNot on fileSexual OrientationNot on filedocumented as of this encounter Plan of Treatment DateTypeDepartmentCare Team (Latest Contact Info)Fiyytaaagfh26/30/2025 2:20 PM ESTRoutine [facility] OBG[facility] [address] [facility] [place] [address] Chelsie Peralta PA [address] [facility] [place] [address] documented as of this encounter Procedures Procedure NamePriorityDate/TimeAssociated DiagnosisCommentsUS OB BPP W NON-XQZJVT9603/31/2025 7:30 PM EST documented in this encounter Results * US OB BPP W NON-STRESS (03/31/2025 7:30 PM EST)Anatomical Region LateralityModalityOtherSpecimen (Source)Anatomical Location / Laterality Collection Method / VolumeCollection TimeReceived Time03/31/2025 7:30 PM EST Narrative 03/31/2025 7:32 PM EST [facility] ?[address] ? [place], [facility] ? Ultrasound Report ? Signed ? Patient: MARTINEZ,YOUSUF A ? MR#: [id number] ?? : 2000 ?Acct:[id number] ?? Age/Sex: 24 / F ?ADM Date: 03/31/25 ?? Loc: US ? Attending Dr: Demarcus Gold D.O. ? Ordering Physician: Demarcus Gold D.O. ?? Date of Service: 03/31/25 ?? Procedure(s): US OB BPP w non-stress ?? Accession Number(s): [id number] ? cc: Demarcus Gold D.O.; Physician,Non-Staff M.D. ? [facility] ? [address] ? [place] [address] ? Patient Name: ?? YOUSUF MARTINEZ ? MRN: [facility]:[id number] ? date: 2000 ?Sex: F ?? Assigned Patient Location: FBC ?? Current Patient Location: ? Accession/Order Number: [id number] ?? Exam Date: 03/31/2025 ??12:55 ?Report Date: 03/31/2025 ??19:30 ? At the request of: ?? DEMARCUS ??ALLA ??DO ? Procedure: ??US OB BPP w non-stress ? Ultrasound biophysical profile ? Comparison 04/07/2025 ? INDICATION: Oligohydramnios ? FINDINGS AND IMPRESSION: Cephalic position. ??ELI measures 6.1 cm, largest ?? pocket of fluid 3.5 cm. ??This is abnormal.. ?? heart rate 142 beats per ?? minutes. ??Biophysical profile score 8/8. ? Impression dictated by: Marco Zhou M.D. ??03/31/2025 7:30 PM ? Dictation Location: RADIO-PC-29 ? Electronically authenticated by: [id number] ??Y ?? Date: 03/31/2025 ??19:30 ? Dictated By: ?Marco Zhou M.D. ? Signed By: ?03/31/251931 ? DD/ 1930 ? TD/TT: ? Vest Baster: Procedure Note Radiology, Radiologist, MD - 03/31/2025 [place] [address] Ultrasound Report Signed Patient: YOUSUF MARTINEZ [facility]#: [id number] : 2000Acct:[id number] Age/Sex: 24 / FADM Date: 03/31/25 Loc: US Attending Dr: Demarcus Gold D.O. Ordering Physician: Demarcus Gold D.O. Date of Service: 03/31/25 Procedure(s): US OB BPP w non-stress Accession Number(s): [id number] cc: Demarcus Gold D.O.; Physician,Non-Staff M.Ashia The [place] [address] Patient Name: YOUSUF MARTINEZ MRN: [facility]:[id number] date: 2000 Sex: F Assigned Patient Location: [facility] Current Patient Location: Accession/Order Number: [id number] Exam Date: 03/31/2025 12:55 Report Date: 03/31/2025 19:30 At the request of: DEMARCUS GOLD DO Procedure: US OB BPP w non-stress Ultrasound biophysical profile Comparison 04/07/2025 INDICATION: Oligohydramnios FINDINGS AND IMPRESSION: Cephalic position. ELI measures 6.1 cm, largest pocket of fluid 3.5 cm. This is abnormal.. heart rate 142 beatsper minutes. Biophysical profile score 8/8. Impression dictated by: Marco Zhou M.D. 03/31/2025 7:30 PM Dictation Location: [place] [address] Electronically authenticated by: [id number] Y Date: 9:30 Dictated By: Marco Zhou M.D. Signed By:03/31/251931 DD/ 29 TD/TT: Vest Baster: Authorizing ProviderResult TypeResult StatusCorey Alla DOCLINISYNC IMAGINGFinal Result documented in this encounter Visit Diagnoses Not on filedocumented in this encounter Care Teams Team MemberRelationshipSpecialtyStart DateEnd Date Tracy Quesada MD [address] [place] [phone] PCP - GeneralFamily Medicine11/26/23documented as of this encounter
--- OUTSIDE RECORDS SUMMARY | 2025-04-11 12:45 | XMS_ITS | Encounter Summary ---
Author Organization [facility] Address [address] [place] [address] Care Team Providers Care Whirley Operator Name Role Phone Tracy Quesada MD Primary Care Provider [phone] Encounter Details DateTypeDepartmentCare Team (Latest Contact Info)Ourtxkwaiso83/08/2025linisync Result Encounter [facility] External Department Unsolicited Demarcus Gold DO [address] [facility] [address] [place], [facility]11 Social History Tobacco UseTypesPacks/DayYears UsedDateSmoking Tobacco: NeverSmokeless Tobacco: NeverAlcohol UseStandard Drinks/WeekCommentsNot Currently0 (1 standard drink = 0.6 oz pure alcohol)Estimated Date of LezwhjaxFlpulkuaNzt50/09/2026ased on last menstrual period of 08/23/2024Sex and Gender InformationValueDate Recorded Sex Assigned at BirthNot on fileLegal WzzKianhb60/15/2023 10:12 PM EDTGender IdentityNot on fileSexual OrientationNot on filedocumented as of this encounter Plan of Treatment DateTypeDepartmentCare Team (Latest Contact Info)Pguzukaywcu48/30/2025 2:20 PM ESTRoutine [facility] [address] [facility] [place] [address] Chelsie Peralta PA [address] [facility] [place] [address] documented as of this encounter Procedures Procedure NamePriorityDate/TimeAssociated DiagnosisCommentsUS OB BPP W NON-HMLRAM0403/28/2025 4:23 PM EST documented in this encounter Results * US OB BPP W NON-STRESS (03/28/2025 4:23 PM EST)Anatomical Region LateralityModalityOtherSpecimen (Source)Anatomical Location / Laterality Collection Method / VolumeCollection TimeReceived Time03/28/2025 4:23 PM EST Narrative 03/28/2025 4:26 PM EST [facility] ?[address] ? [place], [facility]11 ? Ultrasound Report ? Signed ? Patient: MARTINEZ,YOUSUF A ? MR#: [id number] ?? : 2000 ?Acct:[id number] ?? Age/Sex: 24 / F ?ADM Date: 03/28/25 ?? Loc: US ? Attending Dr: Demarcus Gold D.O. ? Ordering Physician: Demarcus Gold D.O. ?? Date of Service: 03/28/25 ?? Procedure(s): US OB BPP w non-stress ?? Accession Number(s): [id number] ? cc: Demarcus Gold D.O.; Physician,Non-Staff M.DEva ? [facility] ? [address] ? [place] [address] ? Patient Name: ?? YOUSUF MARTINEZ ? MRN: [facility]:[id number] ? date: 2000 ?Sex: F ?? Assigned Patient Location: FBC ?? Current Patient Location: ? Accession/Order Number: [id number] ?? Exam Date: 03/28/2025 ??13:00 ?Report Date: 03/28/2025 ??16:23 ? At the request of: ?? DEMARCUS ??ALLA ??DO ? Procedure: ??US OB BPP w non-stress ? US OB BPP w non-stress ??03/28/2025 1:24 PM ? SIGNS AND SYMPTOMS: ?? OLIGOHYDRAMINOS ? PROTOCOL: Transabdominal sonographic imaging of the gravid uterus ? COMPARISON: 02/07/2025 ? FINDINGS: ? Estimated gestational age: 31 weeks 0 days ? heart rate: 145 bpm. ? Amniotic fluid index: 6.16 cm the deepest vertical pocket measures 3.55 cm. ? Biophysical profile: ? breathing movements: 2/2 ? Gross body movements: 2/2 ? tone: 2/2 ? Amniotic fluid volume: 2/2 ? US/US OB BPP w non-stress ?? IMPRESSION: ? Biophysical profile score: 11/26 ? Impression dictated by: Cam Hendrix M.D. ??03/28/2025 4:23 PM ? Dictation Location: RADIO-PC-23 ? Electronically authenticated by: [id number] ??Y ?? Date: 03/28/2025 ??16:23 ? Dictated By: ?Cam Hendrix M.D. ? Signed By: ?03/28/251625 ? DD/ 1623 ? TD/TT: ? Grinder Gear: Procedure Note Radiology, Radiologist, - 03/28/2025 [place] [address] Ultrasound Report Signed Patient: YOUSUF MARTINEZ AMR#: [id number] : 2000Acct:[id number] Age/Sex: 24 / FADM Date: 03/28/25 Loc: US Attending Dr: Demarcus Gold D.O. Ordering Physician: Demarcus Gold D.O. Date of Service: 03/28/25 Procedure(s): US OB BPP w non-stress Accession Number(s): [id number] cc: Demarcus Gold D.O.; Physician,Non-Staff M.D. The [place] [id number] Patient Name: YOUSUF MARTINEZ MRN: [facility]:[id number] date: 2000 Sex: F Assigned Patient Location: [facility] Current Patient Location: Accession/Order Number: [id number] Exam Date: 03/28/2025 13:00 Report Date: 03/28/2025 16:23 At the request of: DEMARCUS GOLD DO Procedure: US OB BPP w non-stress US OB BPP w non-stress 03/28/2025 1:24 PM SIGNS AND SYMPTOMS: OLIGOHYDRAMINOS PROTOCOL: Transabdominal sonographic imaging of the gravid uterus COMPARISON: 02/07/2025 FINDINGS: Estimated gestational age: 31 weeks 0 days heart rate: 145 bpm. Amniotic fluid index: 6.16 cm the deepest vertical pocket measures 3.55cm. Biophysical profile: breathing movements: 2/2 Gross body movements: 2/2 tone: 2/2 Amniotic fluid volume: 2/2 US/US OB BPP w non-stress IMPRESSION: Biophysical profile score: 11/26 Impression dictated by: Cam Hendrix M.D. 03/28/2025 4:23 PM Dictation Location: [place] [address] Electronically authenticated by: [id number] Y Date: 6:23 Dictated By: Cam Hendrix M.D. Signed By:03/28/25 1626 DD/ 22 TD/TT: Grinder Gear: Authorizing ProviderResult TypeResult StatusCorey Alla DOCLINISYNC IMAGINGFinal Result documented in this encounter Visit Diagnoses Not on filedocumented in this encounter Care Teams Team MemberRelationshipSpecialtyStart DateEnd Date Tracy Quesada MD [address] [facility] [place] [address] PCP - GeneralFamily Medicine11/26/23documented as of this encounter
--- OUTSIDE RECORDS SUMMARY | 2025-04-11 12:45 | XMS_ITS | Encounter Summary ---
Author Organization [facility] Address [address] [place] [address] Care Team Providers Care Programmer Analyst Name Role Phone Tracy Quesada MD Primary Care Provider [phone] Encounter Details DateTypeDepartmentCare Team (Latest Contact Info)Zfgvywfqcbg62/18/2025bstract MEHUL PICKETT [address] [place] [address] [place] [address] Yonas Gold DO [address] [facility] [address] [place], [place] [address] Social History Tobacco UseTypesPacks/DayYears UsedDateSmoking Tobacco: NeverSmokeless Tobacco: NeverAlcohol UseStandard Drinks/WeekCommentsNot Currently0 (1 standard drink = 0.6 oz pure alcohol)Estimated Date of RxsauwjyZghnzeyvSox92/09/2026ased on last menstrual period of 08/23/2024Sex and Gender InformationValueDate Recorded Sex Assigned at BirthNot on fileLegal FuzLywqqy62/15/2023 10:12 PM EDTGender IdentityNot on fileSexual OrientationNot on filedocumented as of this encounter Plan of Treatment DateTypeDepartmentCare Team (Latest Contact Info)Odrwnwrxmxe71/30/2025 2:20 PM ESTRoutine MEHUL PICKETT [address] [facility] [address] Chelsie Peralta PA [address] [facility] [address] [place], [facility]11 documented as of this encounter Visit Diagnoses Not on filedocumented in this encounter Care Teams Team MemberRelationshipSpecialtyStart DateEnd Date Tracy Quesada MD [address] [place] [address] PCP - GeneralFamily Medicine11/26/23documented as of this encounter
--- OUTSIDE RECORDS SUMMARY | 2025-04-11 12:45 | XMS_ITS | Encounter Summary ---
Author Organization [facility] Address [address] [place] [address] Care Team Providers Care Elevator Pilot Name Role Phone Tracy Quesada MD Primary Care Provider [phone] Encounter Details DateTypeDepartmentCare Team (Latest Contact Info)Nkfhnzymtca14/10/2025External Result Encounter [facility] Juan Luis PICKETT [address] [place] [address] [place] [address] Demarcus Gold DO [address] [facility] [address] [place], [place] [address] Social History Tobacco UseTypesPacks/DayYears UsedDateSmoking Tobacco: NeverSmokeless Tobacco: NeverAlcohol UseStandard Drinks/WeekCommentsNot Currently0 (1 standard drink = 0.6 oz pure alcohol)Estimated Date of WgreginkVsfcbottYjk59/09/2026Based on last menstrual period of 08/23/2024Sex and Gender InformationValueDate Recorded Sex Assigned at BirthNot on fileLegal TkrWpcnys19/15/2023 10:12 PM EDTGender IdentityNot on fileSexual OrientationNot on filedocumented as of this encounter Plan of Treatment DateTypeDepartmentCare Team (Latest Contact Info)Dbbivgqrsej50/30/2025 2:20 PM ESTRoutine [facility] Juan Luis PICKETT [address] [facility] [place] [address] Chelsie Peralta PA [address] [facility] [place] [address] documented as of this encounter Procedures Procedure NamePriorityDate/TimeAssociated DiagnosisCommentsUS OB 14+ WEEKS ANATOMY SCAN03/30/2025 3:06 PM EST documented in this encounter Results * US OB 14+ weeks anatomy scan (03/30/2025 3:06 PM EST)Anatomical Region LateralityModalityBodyUltrasoundSpecimen (Source)Anatomical Location / LateralityCollection Method / VolumeCollection TimeReceived Time03/30/2025 3:06 PM EST Narrative 03/30/2025 3:06 PM EST THIS EXAM WAS PERFORMED AT [facility] NAME: ??JUAN TO : 2000 SEX: F Accession Number: [id number] ORDERING PHYSICIAN: CATRACHITO BLAND REFERRING PHYSICIAN: DEMARCUS GOLD Coding Procedures ? 01688: Ultrasound, uterus, real time with image documentation, and maternal evaluation ? plus detailed anatomic examination, transabdominal approach;single or first gestation ? 01877: OB Transvaginal ? 17082: Doppler velocimetry, ; umbilical artery Indication Screening for Anatomic Survey, Screening for cervical length, IUGR-Poor growth, Gestational diabetes, Carrier for Alpha thalassemia . History OB History ? 2. Para 1 ? [id number] Current Cell free DNA ?low risk analysis Maternal Assessment Physical Exam ??Height 170 cm, 5 ft 7 in. Weight 91 kg, 201 lb. Initial weight 81 kg, 178 lb. BMI 31.48 kg/m???. Initial ? BMI 27.88 kg/m???. Weight gain 10 kg, 23 lb Method Transabdominal and transvaginal ultrasound examination. View: Suboptimal view: limited by late gestational age. Medical Fire Battalion Chief Fire Battalion Chief accepted?Diana Valente Alcantara . Number of fetuses: [...] (oz) ? 2 oz EFW by: ?Hadlock (WZG-FZ-ER-FL) Extended Tibia ??47.4 mm 28w 5d 4% Bernadine Foot 52.6 mm <1% Chitty Assistant Professor Of English ? 3.3 mm CM ? 4.8 mm [...] Heart / Thorax 4-chamber view. 3-vessel view. 3-igzciq-ohgbcem view. Interventricular septum. Greatvessels. ? Right lung. [...] MVP measures 3.3 cm. Recommendations Please see [facility] documentation from today. The patient is scheduled in 1 week for Doppler and MVP. The patient is scheduled in 3 week(s) to complete anatomic survey and Dopplers. Subsequent follow up or other follow up as clinically determined by primary OB provider unless otherwise specified by [facility]. Results forwarded to ordering provider so they can follow up with the patient as necessary. The copy-to physician of this order is DEMARCUS Quarles The ordering physician of this order is CATRACHITO Shearer Procedure Note Radiology, Radiologist, MD - 03/30/2025 THIS EXAM WAS PERFORMED AT [facility] NAME: JUAN TO : 2000 SEX: F Accession Number: [id number] ORDERING PHYSICIAN: CATRACHITO BLAND REFERRING PHYSICIAN: DEMARCUS GOLD Coding Procedures 84669: Ultrasound, uterus, real time with image documentation, and maternal evaluation plus detailed anatomic examination, transabdominalapproach;single or first gestation 32028: OB Transvaginal 45146: Doppler velocimetry, ; umbilical artery Indication Screening for Anatomic Survey, Screening for cervical length, IUGR-Poorfetal growth, Gestational diabetes, Carrier for Alpha thalassemia . History OB History 2. Para 1 [id number] Current Cell free DNA low risk analysis Maternal Assessment Physical Exam Height 170 cm, 5 ft 7 in. Weight 91 kg, 201 lb. Initialweight 81 kg, 178 lb. BMI 31.48 kg/m???. Initial BMI 27.88 kg/m???. Weight gain 10 kg, 23 lb Method Transabdominal and transvaginal ultrasound examination. View: Suboptimalview: limited by late gestational age. Medical Fire Battalion Chief Fire Battalion Chief accepted?Diana Valente Alcantara . Number of fetuses: [...] EFW (oz) 2 oz EFW by: Hadlock (QUB-TM-IQ-FL) Extended Tibia 47.4 mm 28w 5d 4% Bernadine Foot 52.6 mm <1% Chitty Assistant Professor Of English 3.3 mm CM 4.8 mm 3% Nicolaides [...] Heart / Thorax 4-chamber view. 3-vessel view. 0-vwdhko-crtngxv view. Interventricular septum. Great vessels. Right lung. [...] order is CATRACHITO Shearer Authorizing ProviderResult TypeResult StatusCorey Alla DAVID OB US PROCEDURES Final Result documented in this encounter Visit Diagnoses Not on filedocumented in this encounter Care Teams Team MemberRelationshipSpecialtyStart DateEnd Date Tracy Quesada MD [address] [facility] [place] [address] PCP - GeneralFamily Medicine11/26/23documented as of this encounter
--- OUTSIDE RECORDS SUMMARY | 2025-04-11 12:46 | XMS_ITS | Encounter Summary ---
Author Organization [facility] Address [address] [place] [address] Care Team Providers Care Head Of Mobile Name Role Phone Tracy Quesada MD Primary Care Provider [phone] Encounter Details DateTypeDepartmentCare Team (Latest Contact Info)Uhehkmdtgzy18/15/2025linisync Result Encounter [facility] External Department Unsolicited Toshia Baez, GENA [address] [facility] [place] [address] Social History Tobacco UseTypesPacks/DayYears UsedDateSmoking Tobacco: NeverSmokeless Tobacco: NeverAlcohol UseStandard Drinks/WeekCommentsNot Currently0 (1 standard drink = 0.6 oz pure alcohol)Estimated Date of DbgeecneKdscqhnmJyr91/09/2026ased on last menstrual period of 08/23/2024Sex and Gender InformationValueDate Recorded Sex Assigned at BirthNot on fileLegal FdnFvweat78/15/2023 10:12 PM EDTGender IdentityNot on fileSexual OrientationNot on filedocumented as of this encounter Plan of Treatment DateTypeDepartmentCare Team (Latest Contact Info)Rmqqrwgxhiw88/30/2025 2:20 PM ESTRoutine [facility] Juan Luis OBLIN [address] [facility] [address] Chelsie Peralta PA [address] [facility] [address] [place], [facility] documented as of this encounter Procedures Procedure NamePriorityDate/TimeAssociated DiagnosisCommentsUS OB BPP W NON-PANVOK9904/04/2025 1:12 PM EST documented in this encounter Results * US OB BPP W NON-STRESS (04/04/2025 1:12 PM EST)Anatomical Region LateralityModalityOtherSpecimen (Source)Anatomical Location / Laterality Collection Method / VolumeCollection TimeReceived Time04/04/2025 1:12 PM EST Narrative 04/04/2025 1:15 PM EST [facility] ?[address] ? [place] [address] ? Ultrasound Report ? Signed ? Patient: MARTINEZ,YOUSUF A ? MR#: [id number] ?? : 2000 ?Acct:[id number] ?? Age/Sex: 24 / F ?ADM Date: 04/04/25 ?? Loc: FBC ??250-1 ? Attending Dr: Tsohia Baez ? Ordering Physician: Toshia Baez ?? Date of Service: 04/04/25 ?? Procedure(s): US OB BPP w non-stress ?? Accession Number(s): [id number] ? cc: Toshia Baez; Physician,Non-Staff M.D. ? [facility] ? [address] ? [place] [address] ? Patient Name: ?? YOUSUF MARTINEZ ? MRN: [facility]:[id number] ? date: 2000 ?Sex: F ?? Assigned Patient Location: FBC ?? Current Patient Location: FBC ?? Accession/Order Number: [id number] ?? Exam Date: 04/04/2025 ??12:48 ?Report Date: 04/04/2025 ??13:12 ? At the request of: ?? TOSHIA ??SASHA ? Procedure: ??US OB BPP w [...] Dictation Location: RADIO-PC-30 ? Electronically authenticated by: [id number] ??Y ?? Date: 04/04/2025 ??13:12 ? Dictated By: ?Brenda Gibbs M.D. ? Signed By: ?12/15/25 1315 ? DD/ 1312 ? TD/TT: ? Mortgage Branch Manager: Procedure Note Radiology, Radiologist, - 04/04/2025 [place] [address] Ultrasound Report Signed Patient: YOUSUF MARTINEZ AMR#: [id number] : 2000Acct:[id number] Age/Sex: 24 / FADM Date: 04/04/25 Loc: [facility] 250-[address]: Toshia Baez Ordering Physician: Toshia Baez Date of Service: 04/04/25 Procedure(s): OB BPP w non-stress Accession Number(s): [id number] cc: Toshia Baez; Physician,Non-Staff M.DEva The [place] [id number] Patient Name: YOUSUF MARTINEZ MRN: [facility]:[id number] date: 2000 Sex: F Assigned Patient Location: [facility] Current Patient Location: [facility] Accession/Order Number: [id number] Exam Date: 04/04/2025 12:48 Report Date: 04/04/2025 13:12 At the request of: TOSHIA BAEZ Procedure: US OB BPP w non-stress [...] Gibbs M.D. 04/04/2025 1:12 PM Dictation Location: [employer] Electronically authenticated by: [id number] Y Date: 3:12 Dictated By: Brenda Gibbs M.D. Signed By:04/04/25 1315 DD/ 1312 TD/TT: Mortgage Branch Manager: Authorizing ProviderResult TypeResult StatusKristina Sasha NPCLINISYNC IMAGING Final Result documented in this encounter Visit Diagnoses Not on filedocumented in this encounter Care Teams Team MemberRelationshipSpecialtyStart DateEnd Date Tracy Quesada MD [address] [place] [address] PCP - GeneralFamily Medicine11/26/23documented as of this encounter
[2025-04-11 12:59] VITALS: BP 99/63; PULSE 86
== END 2025-04-11 13:26 | disposition home or self-care (01) ==
LOC: US 12:43 → FBC 12:45
PROVIDERS: Visit Provider Nurse Practitioner Family
DX: O41.03X0 Oligohydramnios, third trimester, not applicable or unspecified (principal); Z3A.33 33 weeks gestation of pregnancy
CPT/HCPCS: 76818

== ENCOUNTER 2025-04-18 12:39 | Outpatient (OUT) | payer MEDICAID, SELFPAY ==
--- OUTSIDE RECORDS SUMMARY | 2025-04-05 14:40 | XMS_ITS | Encounter Summary ---
Author Organization [facility] Address [address] [place] [address] Care Team Providers Care Radio Personality Name Role Phone Tracy Quesada MD Primary Care Provider [phone] Reason for Visit * ReasonCommentsRoutine Visit Encounter Details DateTypeDepartmentCare Team (Latest Contact Info)Xkwemulhkzu22/16/2025 2:40 PM ESTRoutine [facility] Juan Luis OBGYLuke [address] [place] [address] Chelsie Peralta PA [address] [place] [address] Third trimester ([facility]); 32 weeks gestation of ([facility]); Hypertension, unspecified type Social History Tobacco UseTypesPacks/DayYears UsedDateSmoking Tobacco: NeverSmokeless Tobacco: NeverAlcohol UseStandard Drinks/WeekCommentsNot Currently0 (1 standard drink = 0.6 oz pure alcohol)Estimated Date of GjbseabzGawuntveQjs16/09/2026ased on last menstrual period of 08/23/2024Sex and Gender InformationValueDate Recorded Sex Assigned at BirthNot on fileLegal RbfNftdsi26/15/2023 10:12 PM EDTGender IdentityNot on fileSexual OrientationNot on filedocumented as of this encounter Last Filed Vital Signs Vital SignReadingTime TakenCommentsBlood Frihnvqq447/8404/05/2025 2:45 PM EST Pulse--Temperature--Respiratory Rate--Oxygen Saturation--Inhaled Oxygen Concentration--Cmtjhj33.4 kg (197 lb)04/05/2025 2:45 PM ESTHeight--Body Mass [...] to check FSBS. Blood Glucose Monitoring Suppl ([employer] Glucometer) w/Device kit 1 kit, Does not [...] was 08/23/2024. Assessment/Plan ICD-10-CM 1. Third trimester ([facility]) Z34.93 POCT urinalysis dipstick manually resulted 2. 32 weeks gestation of ([facility]) Z3A.32 3. Hypertension, unspecified type I10 Assessment/Plan [...] Plan of Treatment DateTypeDepartmentCare Team (Latest Contact Info)Sythhrlgufi75/30/2025 2:20 PM ESTRoutine [facility] [address] [place] [address] Chelsie Peralta PA [address] [place] [address] documented as of this encounter Procedures Procedure NamePriorityDate/TimeAssociated DiagnosisCommentsPOCT URINALYSIS VIXMTQKYAnciuyu81/16/2025 2:52 PM EST Third trimester ([facility]) documented in this encounter Results * (ABNORMAL) [...] 2:52 PM EST Narrative Authorizing ProviderResult TypeResult Status[facility] TEST ENTER/EDIT ORDERABLESFinal Result documented in this encounter Visit Diagnoses Diagnosis Third trimester ([facility]) state, incidental 32 weeks gestation of ([facility]) Hypertension, unspecified type documented in this encounter Care Teams Team MemberRelationshipSpecialtyStart DateEnd Date Tracy Quesada MD [address] [place] [address] [place] [phone] PCP - GeneralFamily Medicine11/26/23documented as of this encounter
--- OUTSIDE RECORDS SUMMARY | 2025-04-06 14:40 | XMS_ITS | Encounter Summary ---
Author Organization [facility] [employer] [facility] tem Address [id number] [address] [place] [address] Care Team Providers Care Field Service Supervisor Name Role Phone Unavailable Primary Care Provider Unavailabl e Reason for Referral * Diagnostic Imaging (Routine) - Pending ReviewSpecialtyDiagnoses / Procedures Referred By ContactReferred To ContactMaternal and Medicine Diagnoses Poor growth affecting management of mother in third trimester, single or unspecified fetus Diet controlled gestational diabetes mellitus (GDM) in third trimester Procedures US MFM with or without consult Catrachito Bland MD [address] [address] Phone: tel: fax: Maternal- Medicine at [address] [address] Phone: tel: fax: Referral IDStatusReasonStart DateExpiration DateVisits RequestedVisits [id number] Reason for Visit * Diagnostic Imaging (Routine) - Pending ReviewSpecialtyDiagnoses / Procedures Referred By ContactReferred To ContactMaternal and Medicine Diagnoses Poor growth affecting management of mother in third trimester, single or unspecified fetus Diet controlled gestational diabetes mellitus (GDM) in third trimester Procedures US MFM with or without consult Catrachito Bland MD [address], [address] [place] [address] Phone: tel: fax: Maternal- Medicine at [facility] [address] [place] [address] Phone: tel: fax: Referral IDStatusReasonStart DateExpiration DateVisits RequestedVisits [id number] Encounter Details DateTypeDepartmentCare Team (Latest Contact Info)Kijerqufssn39/17/2025 2:40 PM EST - 04/06/2025 11:59 PM ESTHospital Encounter [facility] Imaging [address] [place] [address] Poor growth affecting management of mother in third trimester, single or unspecified fetus; Diet controlled gestational diabetes mellitus (GDM) in third trimester Discharge Disposition: Home Social History Tobacco UseTypesPacks/DayYears UsedDateSmoking Tobacco: NeverSmokeless Tobacco: NeverAlcohol UseStandard Drinks/WeekCommentsNot Currently0 (1 standard drink = 0.6 oz pure alcohol)PHQ-2AnswerDate RecordedTotal Cwnck81905/31/2024UDIT-CAnswer Date RecordedFrequency of Alcohol ConsumptionNot on file03/30/2025Q2: How many drinks containing alcohol do you have on a typical day when you are drinking? Patient does not drink03/30/2025Frequency of Binge DrinkingNot on file03/30/2025 Hunger ScreeningAnswerDate RecordedWithin the past 12 months we worried whether our food would run out before we got money to buy more.Never True03/30/2025 Within the past 12 months the food we bought just didn't last and we didn't have money to get more.Never True03/30/2025Estimated Date of DeliveryComments Yes05/30/2025ased on last menstrual period of 08/23/2024Sex and Gender InformationValueDate RecordedSex Assigned at BirthNot on fileLegal SexFemale 03/09/2025 1:40 PM ESTGender IdentityNot on fileSexual OrientationNot on file documented as of this encounter Medications at Time of Discharge MedicationSigDispense QuantityRefillsLast FilledStart DateEnd Date aspirin 81 mg Take 1 tablet (81 mg total) by mouth in the morning. ferrous sulfate 325 (65 FE) MG tablet Take 1 tablet (325 mg total) by mouth daily with breakfast. 115/iron/folic acid ( 19 ORAL) Take by mouth.documented as of this encounter Plan of Treatment DateTypeDepartmentCare Team (Latest Contact Info)Kcynaigmipc97/31/2025 11:00 AM ESTAppointment [facility] [address] [place] [phone] 05/04/2025 3:30 PM ESTAppointSelect Medical [facility] [address] [place] [phone] documented as of this encounter Procedures Procedure NamePriorityDate/TimeAssociated DiagnosisCommentsUS [facility] LMTD OB, 1 OR MORE KVRROVduhszj58/17/2025 3:08 PM EST Poor growth affecting management of mother in third trimester, single or unspecified fetus Diet controlled gestational diabetes mellitus (GDM) in third trimester documented in this encounter Results * US M LMTD OB, 1 OR MORE FETUS (04/06/2025 3:08 PM EST)Anatomical Region LateralityModalityOB-GYNUltrasoundSpecimen (Source)Anatomical Location / LateralityCollection Method / VolumeCollection TimeReceived Time04/06/2025 2:52 PM EST Narrative 04/06/2025 3:45 PM EST NAME: ??JUAN TO : 2000 SEX: F Accession Number: [id number] ORDERING PHYSICIAN: CATRACHITO BLAND REFERRING PHYSICIAN: DEMARCUS GRIMES Coding Procedures ? 91808: Ultrasound, uterus, real time with image documentation, limited one or more fetuses ? 13683: Doppler velocimetry, ; umbilical artery Indication IUGR-Poor growth, Gestational diabetes, Carrier for Alpha thalassemia . History OB History ? 2. Para 1 ? [id number] Current Cell free DNA ?low risk analysis Maternal Assessment Physical Exam ??Height 170 cm, 5 ft 7 in. Weight 91 kg, 201 lb. Initial weight 81 kg, 178 lb. BMI 31.48 kg/m??. Initial ? BMI 27.88 kg/m??. Weight gain 10 kg, 23 lb Method Transabdominal ultrasound examination. Alcantara . Number of fetuses: 1 Dating LMP on: ?08/23/2024 GA by LMP ?32 w + 2 d TYREL by LMP: ?05/30/2025 Previous Ultrasound on: ?11/05/2024 Type of prior assessment: ?GA GA at prior assessment date ?10 w + 1 d GA by previous U/S ? 31 w + 6 d TYREL by previous Ultrasound: ?06/02/2025 Assigned: ?based on the LMP, selected on 03/30/2025 Assigned GA (weeks days) ? 32 w + 2 d Assigned TYREL: ??05/30/2025 General Evaluation Cardiac activity Present. FHR 141 bpm. movements: visualized. Presentation: cephalic Placenta: Placental site: left lateral, previously documented away from cervical os Umbilical cord: Cord vessels: not examined. Insertion site: not examined Amniotic fluid: Amount of AF: normal amount. MVP 4.1 cm Doppler Umbilical Artery: normal PI ?1.21 ?? 96% ? Ebbing PS ?-44.86 cm/s TAmax ??-26.52 ??cm/s MD ?-12.71 cm/s S / D ??3.53 ?89% ? Jay Maternal Structures Uterus Visualized Cervix Not visualized Right Ovary ?Visualized ? Size 2.8 cm x 2.6 cm x 2.0 cm. Vol 7.6 cm? Cyst(s) Simple cyst. Size 14 mm x 12 mm x 10 mm. Mean 12.0 mm. Vol 0.880 cm?? Left Ovary ? Not visualized Cul de Sac ? Suboptimal Impression Single live intrauterine with a working diagnosis of non-severe FGR at 32w 2d. Umbilical artery Doppler S/D ratio in normal range. Amniotic fluid MVP measures 4.1 cm. Recommendations Please see [facility] recommendations from prior clinical and/or ultrasound report documentation. The patient is scheduled in two weeks to complete anatomic survey with umbilical artery Dopplers. The patient is scheduled in 4 week(s) for umbilical artery Doppler and MVP. Continue testing as previously recommended. Subsequent follow up or other follow up as clinically determined by primary OB provider unless otherwise specified by [facility]. Results forwarded to ordering provider so they can follow up with the patient as necessary. Procedure Note Bertha Bryant MD - 04/06/2025 NAME: JUAN TO : 2000 SEX: F Accession Number: [id number] ORDERING PHYSICIAN: CATRACHITO BLAND REFERRING PHYSICIAN: DEMARCUS GRIMES Coding Procedures 58494: Ultrasound, uterus, real time with image documentation, limited one or more fetuses 21590: Doppler velocimetry, ; umbilical artery Indication IUGR-Poor growth, Gestational diabetes, Carrier for Alphathalassemia . History OB History 2. Para 1 [id number] Current Cell free DNA low risk analysis Maternal Assessment Physical Exam Height 170 cm, 5 ft 7 in. Weight 91 kg, 201 lb. Initialweight 81 kg, 178 lb. BMI 31.48 kg/m??. Initial BMI 27.88 kg/m??. Weight gain 10 kg, 23 lb Method Transabdominal ultrasound examination. Alcantara . Number of fetuses: 1 Dating LMP on: 08/23/2024 GA by LMP 32 w + 2 d TYREL by LMP: 05/30/2025 Previous Ultrasound on: 11/05/2024 Type of prior assessment: GA GA at prior assessment date 10 w + 1 d GA by previous U/S 31 w + 6 d TYREL by previous Ultrasound: 06/02/2025 Assigned: based on the LMP, selected on 03/30/2025 Assigned GA (weeks days) 32 w + 2 d Assigned TYREL: 05/30/2025 General Evaluation Cardiac activity Present. FHR 141 bpm. movements: visualized.Presentation: cephalic Placenta: Placental site: left lateral, previously documented away fromcervical os Umbilical cord: Cord vessels: not examined. Insertion site: not examined Amniotic fluid: Amount of AF: normal amount. MVP 4.1 cm Doppler Umbilical Artery: normal PI 1.21 96% Ebbing PS -44.86 cm/s TAmax -26.52 cm/s MD -12.71 cm/s S / D 3.53 89% Jay Maternal Structures Uterus Visualized Cervix Not visualized Right Ovary Visualized Size 2.8 cm x 2.6 cm x 2.0 cm. Vol 7.6 cm?? Cyst(s) Simple cyst. Size 14 mm x 12 mm x 10 mm. Mean 12.0 mm. Vol0.880 cm?? Left Ovary Not visualized Cul de Sac Suboptimal Impression Single live intrauterine with a working diagnosis of non-severeFGR at 32w 2d. Umbilical artery Doppler S/D ratio in normal range. Amniotic fluid MVP measures 4.1 cm. Recommendations Please see [facility] recommendations from prior clinical and/or ultrasoundreport documentation. The patient is scheduled in two weeks to complete anatomic survey withumbilical artery Dopplers. The patient is scheduled in 4 week(s) for umbilical artery Dopplerand MVP. Continue testing as previously recommended. Subsequent follow up or other follow up as clinically determined byprimary OB provider unless otherwise specified by [facility]. Results forwarded to ordering provider so they can follow up with thepatient as necessary. Authorizing ProviderResult TypeResult Nathaniel Bland MDTheresa US ORDERABLES Final Result documented in this encounter Visit Diagnoses Diagnosis Poor growth affecting management of mother in third trimester, single or unspecified fetus Diet controlled gestational diabetes mellitus (GDM) in third trimester documented in this encounter Additional Health Concerns AssessmentNoted TimePHQ-9 Depression Total Score: 2:17 PM EST documented as of this encounter
--- OUTSIDE RECORDS SUMMARY | 2025-04-18 12:41 | XMS_ITS | Clinical Summary ---
Author Organization [facility] Address [address] [place] [address] Care Team Providers Care Police Officer Booking Name Role Phone Tracy Quesada MD Primary Care Provider [phone] Allergies No known active allergies Medications MedicationSigDispense [...] (GDM), antepartum, gestational diabetes method of control unspecified([facility]),Elevated glucose tolerance test1 strip by In Vitro route Daily Use in the morning prior to breakfast, 1 hour after each meal for atotal of 4times daily. 150 strip 5106/07/2024Expired Active Problems ProblemNoted DateDiagnosed YnvcJfopijnsrqgn24/16/2025Estimated Date of ZgvywzntSfnclgfzEto65/09/2026ased on last menstrual period of 08/23/2024 Encounters DateTypeDepartmentCare YioiCszaopmmeeq48/22/2025linisync Result Encounter [facility] External Department Unsolicited Petty Baez NP 04/07/2025bstract [facility] [address] [address] [place] [address] Demarcus Gold, DO 04/05/2025 2:40 PM ESTRoutine [facility] [address] [place] [address] Chelsie Peralta, PA Third trimester ([facility]); 32 weeks gestation of ([facility]); Hypertension, unspecified type04/05/2025amboo flowsheet [facility] [address] [place] [address] Chelsie Peralta PA 04/04/2025linisync Result Encounter NOMS External Department Unsolicited Petty Baez NP 03/31/2025linisync Result Encounter NOMS External Department Unsolicited Demarcus Gold, DO 03/30/2025External Result Encounter [facility] [address] [place] [address] Demarcus Gold, DO 03/29/2025Telephone [facility] [address] [place] [address] Sherita Bowers MA 03/28/2025linisync Result Encounter NOMS External Department Unsolicited Demarcus Gold, DO 03/28/2025linisync Result Encounter NOMS External Department Unsolicited Alla Demarcus, DO 03/23/2025 2:00 PM ESTRoutine [facility] [place] [address] AllaNeoy, DO 30 weeks gestation of ([facility]); Third trimester ([facility]); Oligohydramnios, antepartum, single or unspecified fetus ([facility]); SGA (small for gestational age) ([facility]); IUGR (intrauterine growth restriction) affecting care of mother, third trimester, fetus 2 ([facility])03/23/2025 1:30 PM ESTAncillary Procedure [facility] [address] [place] [address] [place] [address] Size of fetus inconsistent with dates in second trimester ([facility])03/23/2025 Telephone [facility] [place] [address] Irene Juan LPN 03/23/20250215Fbxaii98/17/2025 1:30 PM ESTRoutine [facility] [place] [address] Chelsie Peralta PA Size of fetus inconsistent with dates in second trimester ([facility]) (Primary Dx); 28 weeks gestation of ([facility]); Third trimester ([facility]); Low hemoglobin; Hypertension, unspecified type; Gestational diabetes mellitus (GDM), antepartum, gestational diabetes method of control unspecified([facility]); Elevated glucose tolerance test03/07/2025Telephone [facility] [place] [address] Chelsie Peralta PA 03/07/2025amboo flowsheet [facility] [place] [address] Chelsie Peralta PA 5Abstract [facility] [place] [facility] [address] [place] [address] Demarcus Gold, DO 02/24/2025bstract [facility] [address] [place] [address] Demarcus Gold, DO 02/24/2025Telephone [facility] [address] [place] [address] Demarcus Gold, DO 02/21/2025 1:20 PM ESTRoutine [facility] [address] [place] [address] Demarcus Gold, DO Second trimester ([facility]); 26 weeks gestation of ([facility]); Hypertension, unspecified type; Diabetes mellitus rnjivqneb00/03/2025amboo flowsheet [facility] [place] [facility] [address] [place] [address] Demarcus Gold, DO 01/31/2025Orders Only [facility] [address] [place] [address] Dinah Leon LPN 01/21/2025Telephone [facility] [address] [place] [address] Sherita Bowers MA 01/20/2025 10:20 AM EDTRoutine [facility] [address] [place] [address] Petty Baez NP 21 weeks gestation of ([facility]); Second trimester ([facility])01/20/2025External Result Encounter NOMS External Department Unsolicited Petty Baez NP 01/20/2025linisync Result Encounter NOMS External Department Unsolicited Petty Baez NP 01/20/2025linisync Result Encounter [facility]OMS External Department Unsolicited Petty Baez NP 01/20/2025amboo flowsheet [facility] [address] [place] [address] SashaLorie guerraGENA hayes 01/19/2025Travelfrom Last 3 Months Social History Tobacco UseTypesPacks/DayYears UsedDateSmoking Tobacco: NeverSmokeless Tobacco: Never Tobacco Cessation:Counseling Given: Not Answered Alcohol UseStandard Drinks/WeekCommentsNot Currently0 (1 standard drink = 0.6 oz pure alcohol)Estimated Date of PjxhoovyXacrlepfBpp16/09/2026ased on last menstrual period of 08/23/2024Sex and Gender InformationValueDate RecordedSex Assigned at BirthNot on fileLegal FkxTaqfqy94/15/2023 10:12 PM EDTGender IdentityNot on fileSexual OrientationNot on file Last Filed Vital Signs Vital SignReadingTime TakenCommentsBlood Pjejdxhv377/8404/05/2025 2:45 PM EST Hewsy964211/26/2023 10:35 AM EDTTemperature--Respiratory Rate--Oxygen Saturation-- Inhaled Oxygen Concentration--Qzqckw24.4 kg (197 lb)04/05/2025 2:45 PM ESTHeight 170.2 cm (5' 7 )11/26/2023 10:35 AM EDTBody Mass Index30.8508 10:35 AM EDT Plan of Treatment DateTypeDepartmentCare Team (Latest Contact Info)Olvemftvauv30/30/2025 2:20 PM ESTRoutine [facility] [address] [place] [address] Chelsie Peralta PA [address] [place] [address] Procedures Procedure NamePriorityDate/TimeAssociated DiagnosisCommentsUS OB BPP W NON-NPAUTN4304/11/2025 1:07 PM EST POCT URINALYSIS CLDHHTVSWnztdwb78/16/2025 2:52 PM EST Third trimester ([facility]) US OB BPP W NON-UDSHVI5604/04/2025 1:12 PM EST US OB BPP W NON-FMMDUR8503/31/2025 7:30 PM EST US OB 14+ WEEKS ANATOMY SCAN03/30/2025 3:06 PM EST US OB BPP W NON-KNSRXN0803/28/2025 4:23 PM EST YCSEWUQKMouywcx14/08/2025 2:35 PM EST POCT URINALYSIS VPOXXSIAHrultdy86/03/2025 2:44 PM EST 30 weeks gestation of ([facility]) Third trimester ([facility]) US OB FOLLOW UP TRANSABDOMINAL DGYDWBKXVnzvxhy00/03/2025 2:04 PM EST Size of fetus inconsistent with dates in second trimester ([facility]) POCT URINALYSIS BUFNCCBLOopwiin72/17/2025 1:25 PM EST 28 weeks gestation of ([facility]) Third trimester ([facility]) POCT URINALYSIS AHSMPANWAzlqdzc63/03/2025 1:18 PM EST Second trimester ([facility]) RECURRENT VAGINITIS (HTRX)Zsajnog5101/20/2025 11:02 AM EDT POCT URINALYSIS DONOPNAYZlyjanf56/02/2025 10:22 AM EDT 21 weeks gestation of ([facility]) IGP,APTIMA HPV,AGE GJAAMbutafs89/02/2025 10:00 AM EDT US OB CERVICAL ENCOJP2101/20/2025 9:53 AM EDT US OB LLHNDEJ1101/20/2025 9:53 AM EDT PAP TEST, SDDXRJTYVbzgniz14/02/2025 12:00 AM EDTfrom Last 3 Months Results * US OB BPP W NON-STRESS (04/11/2025 1:07 PM EST) Only the most recent of4 resultswithin the time period is included. Anatomical RegionLateralityModalityOtherSpecimen (Source)Anatomical Location / LateralityCollection Method / VolumeCollection TimeReceived Time04/11/2025 1:07 PM EST Narrative 04/11/2025 1:10 PM EST [facility] ?[address] ? [place], [facility] ? Ultrasound Report ? Signed ? Patient: GRETEL MARTINEZ A ? MR#: [id number] ?? : 2000 ?Acct:[id number] ?? Age/Sex: 24 / F ?ADM Date: 04/11/25 ?? Loc: [facility] ??250-1 ? Attending Dr: Petty Baez ? Ordering Physician: Petty Baez ?? Date of Service: 04/11/25 ?? Procedure(s): US OB BPP w non-stress ?? Accession Number(s): [id number] ? cc: Petty Baez; Physician,Non-Staff M.D. ? [facility] ? [address] ? [place] [address] ? Patient Name: ?? GRETEL Omar MARTINEZ ? MRN: [facility]:[id number] ? date: 2000 ?Sex: F ?? Assigned Patient Location: [facility] ?? Current Patient Location: [facility] ?? Accession/Order Number: [id number] ?? Exam Date: 04/11/2025 ??12:46 ?Report Date: 04/11/2025 ??13:07 ? At the request of: ?? PETTY ??SASHA ? Procedure: ??US OB BPP w non-stress ? BIOPHYSICAL PROFILE: ? CLINICAL INFORMATION: OLIGOHYDRAMNIOS ? COMPARISON: 04/04/2025 ? There is a single live intrauterine gestation in cephalic presentation. ??The ?? reported gestational age is 33 weeks 0 days. ??The heart rate measures ?? 150 beats per minute. ? FINDINGS: ? TONE: 1 or more [...] 2 cm ? [Y] ? 2/2 ?ELI: 8.2 cm. ??The 5th percentile is 8.3 cm. ? Total score: ? 8/8 ? US/US OB BPP w non-stress ?? IMPRESSION: ? NORMAL BIOPHYSICAL PROFILE. ? CONTINUED OLIGOHYDRAMNIOS. ? Impression dictated by: Brenda Gibbs M.D. ??04/11/2025 1:07 PM ? Dictation Location: RADIO-PC-30 ? Electronically authenticated by: [id number] ??Y ?? Date: 04/11/2025 ??13:07 ? Dictated By: ?Brenda Gibbs M.D. ? Signed By: ?12/22/25 1310 ? DD/ 1307 ? TD/TT: ? Compression Molding Machine Tender: Procedure Note Radiology, Radiologist, MD - 04/11/20[address] [place] [address] Ultrasound Report Signed Patient: GRETEL MARTINEZ [facility]R#: [id number] : 2000Acct:[id number] Age/Sex: 24 / FADM Date: 04/11/25 Loc: [facility] 250-[address]: Petty Baez Ordering Physician: Petty Baez Date of Service: 04/11/25 Procedure(s): US OB BPP w non-stress Accession Number(s): [id number] cc: Petty Baez; Physician,Non-Staff M.D. The [place] [id number] Patient Name: GRETEL MARTINEZ MRN: [facility]:[id number] date: 2000 Sex: F Assigned Patient Location: [facility] Current Patient Location: [facility] Accession/Order Number: [id number] Exam Date: 04/11/2025 12:46 Report Date: 04/11/2025 13:07 At the request of: PETTY BAEZ Procedure: US OB BPP w non-stress BIOPHYSICAL PROFILE: CLINICAL INFORMATION: OLIGOHYDRAMNIOS COMPARISON: 04/04/2025 There is a single live intrauterine gestation in cephalic presentation.The reported gestational age is 33 weeks 0 days. The heart ratemeasures 150 beats per minute. FINDINGS: TONE: 1 or more episodes of [...] greater than 2 cm [Y] 2/2 ELI: 8.2 cm. The 5th percentile is 8.3 cm. Total score: 11/26 US/US OB BPP w non-stress IMPRESSION: NORMAL BIOPHYSICAL PROFILE. CONTINUED OLIGOHYDRAMNIOS. Impression dictated by: Brenda Gibbs M.D. 04/11/2025 1:07 PM Dictation Location: [employer] Electronically authenticated by: [id number] Y Date: 3:07 Dictated By: Brenda Gibbs M.D. Signed By:04/11/25 1310 DD/ 1307 TD/TT: Compression Molding Machine Tender: Authorizing ProviderResult TypeResult StatusKrmallory Baez NPCLINISYNC IMAGING Final Result * (ABNORMAL) POCT urinalysis dipstick manually resulted (04/05/2025 2:52 PM EST) Only the most recent of5 resultswithin the time period is included. ComponentValueRef RangeTest MethodAnalysis TimePerformed AtPathologist Signature Color, UAAmberClarity, UACloudyGlucose, UANegativeNegative - 1999(110) ++++ mg/dLBilirubin, UANegativeNegative - 4(70) +++ mg/dLKetones, UAPositiveNegative - 160(16) ++++ mg/dLSpec Grav, UA1.0251 - 1.03Blood, UANegativeNegative - 50 Tal/mcLpH, UA6.05 - 9Protein, UA1+Negative - 2000(20) ++++ mg/dLUrobilinogen, UA 1.00.2 - 12 mg/dLLeukocytes, UA3+Negative - 500+++ Pepe/mcLNitrite, UANegative Negative - PositiveSpecimen (Source)Anatomical Location / LateralityCollection Method / VolumeCollection TimeReceived XkppNytwo45/16/2025 2:52 PM EST Narrative Authorizing ProviderResult TypeResult StatusAmy Kathryn [facility] TEST ENTER/EDIT ORDERABLESFinal Result * US OB 14+ weeks anatomy scan (03/30/2025 3:06 PM EST)Anatomical Region LateralityModalityBodyUltrasoundSpecimen (Source)Anatomical Location / LateralityCollection Method / VolumeCollection TimeReceived Time03/30/2025 3:06 PM EST Narrative 03/30/2025 3:06 PM EST THIS EXAM WAS PERFORMED AT [facility] NAME: ??JUAN TO : 2000 SEX: F Accession Number: [id number] ORDERING PHYSICIAN: CATRACHITO BLAND REFERRING PHYSICIAN: DEMARCUS GOLD Coding Procedures ? 81276: Ultrasound, uterus, real time with image documentation, and maternal evaluation ? plus detailed anatomic examination, transabdominal approach;single or first gestation ? 34760: OB Transvaginal ? 90604: Doppler velocimetry, ; umbilical artery Indication Screening for Anatomic Survey, Screening for cervical length, IUGR-Poor growth, Gestational diabetes, Carrier for Alpha thalassemia . History OB History ? 2. Para 1 ? [id number] Current Cell free DNA ?low risk analysis Maternal Assessment Physical Exam ??Height 170 cm, 5 ft 7 in. Weight 91 kg, 201 lb. Initial weight 81 kg, 178 lb. BMI 31.48 kg/m???. Initial ? BMI 27.88 kg/m???. Weight gain 10 kg, 23 lb Method Transabdominal and transvaginal ultrasound examination. View: Suboptimal view: limited by late gestational age. Medical Beater Out Leveling Machine Beater Out Leveling Machine accepted?Diana Valente Alcantara . Number of fetuses: [...] (oz) ? 2 oz EFW by: ?Hadlock (GER-EY-HM-FL) Extended Tibia ??47.4 mm 28w 5d 4% Bernadine Foot 52.6 mm <1% Chitty Roofing Laborer ? 3.3 mm CM ? 4.8 mm [...] Heart / Thorax 4-chamber view. 3-vessel view. 9-erxdqv-opfamyw view. Interventricular septum. Greatvessels. ? Right lung. [...] MVP measures 3.3 cm. Recommendations Please see [facility] documentation from today. The patient is scheduled [...] - 03/30/2025 THIS EXAM WAS PERFORMED AT [facility] NAME: JUAN TO : 2000 SEX: F Accession Number: [id number] ORDERING PHYSICIAN: CATRACHITO BLAND REFERRING PHYSICIAN: DEMARCUS GOLD Coding Procedures 87419: Ultrasound, uterus, real time with image documentation, and maternal evaluation plus detailed anatomic examination, transabdominalapproach;single or first gestation 88134: OB Transvaginal 22725: Doppler velocimetry, ; umbilical artery Indication Screening for Anatomic Survey, Screening for cervical length, IUGR-Poorfetal growth, Gestational diabetes, Carrier for Alpha thalassemia . History OB History 2. Para 1 [id number] Current Cell free DNA low risk analysis Maternal Assessment Physical Exam Height 170 cm, 5 ft 7 in. Weight 91 kg, 201 lb. Initialweight 81 kg, 178 lb. BMI 31.48 kg/m???. Initial BMI 27.88 kg/m???. Weight gain 10 kg, 23 lb Method Transabdominal and transvaginal ultrasound examination. View: Suboptimalview: limited by late gestational age. Medical Beater Out Leveling Machine Beater Out Leveling Machine accepted?Diana Valente Alcantara . Number of fetuses: [...] EFW (oz) 2 oz EFW by: Hadlock (YXG-UM-VM-FL) Extended Tibia 47.4 mm 28w 5d 4% Bernadine Foot 52.6 mm <1% Chitty Roofing Laborer 3.3 mm CM 4.8 mm 3% Nicolaides [...] Heart / Thorax 4-chamber view. 3-vessel view. 0-salcsy-vfiikrc view. Interventricular septum. Great vessels. Right lung. [...] CATRACHITO Shearer Authorizing ProviderResult TypeResult StatusCorey Alla [facility] OB US PROCEDURES Final Result * AMNISURE (03/28/2025 2:35 PM EST)ComponentValueRef RangeTest MethodAnalysis TimePerformed AtPathologist SignatureTBH AMNISURENEGATIVENEGATIVETBHSpecimen (Source)Anatomical Location / LateralityCollection Method / VolumeCollection TimeReceived Time03/28/2025 2:35 PM EST03/28/2025 2:40 PM EST Narrative [facility] - 03/28/2025 2:54 PM EST Authorizing ProviderResult TypeResult StatusCoresubhash Gold DOL BLOOD ORDERABLES Final ResultPerforming OrganizationAddressCity/State/ZIP CodePhone Number [facility] * US OB follow up transabdominal approach [...] 1269 grams (5.3% weight by percentile) 3. EIL 8 cm * Estimated Weight (g) by Percentile is based upon an accurateestimated age based on last menstrual period. TRANSCRIBED BY: ELECTRONICALLY SIGNED BY: Geo Lopez MD Authorizing ProviderResult TypeResult StatusAmy Kathryn LOPEZ OB US PROCEDURES Edited Result - Final * (ABNORMAL) RECURRENT VAGINITIS (HTRX) (01/20/2025 11:02 AM EDT)ComponentValue Ref RangeTest MethodAnalysis TimePerformed AtPathologist SignatureATOPOBIUM VRGITKA57.582(A)19.961 - 24.689 ppm01/21/2025 5:38 AM EDTHealthTrackRx at [facility] CenterATOPOBIUM VAGINAEDetected(A)19.961 - 24.689 ppm01/21/2025 5:38 AM EDT [facility] (BACTERIAL VAGINOSIS ASSOCIATED BACTERIA 2, 3); MOBILUNCUS EXG584.961 - 24.689 ppm01/21/2025 5:38 AM EDTHealthTrackRx at [facility]AB 2,3 (BACTERIAL VAGINOSIS ASSOCIATED BACTERIA 2, 3); MOBILUNCUS SPP Not Fcucpetn53.961 - 24.689 ppm01/21/2025 5:38 AM EDTHealthTrackRx at [facility] JODY ALBICANS, PARAPSILOSIS, CETXBNKVLE603.000 - 30.347 ppm01/21/2025 5:38 AM EDTHealthTrackRx at LabPortCANDIDA ALBICANS, PARAPSILOSIS, TROPICALISNot Akvbryvl13.000 - 30.347 ppm01/21/2025 5:38 AM EDTHealthTrackRx at [facility] JODY HCHECSZZ602.000 - 31.618 ppm01/21/2025 5:38 AM EDTHealthTrackRx at LabPortCANDIDA GLABRATANot Irsskqbw00.000 - 31.618 ppm01/21/2025 5:38 AM EDT [facility]Port[facility]ANDIDA NPBNNN449.000 - 30.873 ppm01/21/2025 5:38 AM EDTHealthTrackRx at LabPortCANDIDA KRUSEINot Txdpgaem88.000 - 30.873 ppm 01/21/2025 5:38 AM EDTHealthTrackRx at LabPortCHLAMYDIA GLLVYCWUKKM168.000 - 31.586 ppm01/21/2025 5:38 AM EDTHealthTrackRx at LabPortCHLAMYDIA TRACHOMATIS Not Tujwxqtx15.000 - 31.586 ppm01/21/2025 5:38 AM EDTHealthTrackRx at [facility] GARDNERELLA XIZXCNWVQ593.961 - 24.689 ppm01/21/2025 5:38 AM EDTHealthTrackRx at [facility] HospitalGARDNERELLA VAGINALISNot Nvbemtow80.961 - 24.689 ppm01/21/2025 5:38 AM EDTHealthTrackRx at LabPortMEGASPHAERA (TYPES 1, 2)019.961 - 24.689 ppm 01/21/2025 5:38 AM EDTHealthTrackRx at LabPortMEGASPHAERA (TYPES 1, 2)Not Tldyyima63.961 - 24.689 ppm01/21/2025 5:38 AM EDTHealthTrackRx at [facility] NEISSERIA HVCJQEKUNYE552.000 - 32.587 ppm01/21/2025 5:38 AM EDTHealthTrackRx at LabPortNEISSERIA GONORRHOEAENot Krxevjzi78.000 - 32.587 ppm01/21/2025 5:38 AM EDTHealthTrackRx at LabPortTRICHOMONAS LTFJVLLJV187.000 - 31.995 ppm 01/21/2025 5:38 AM EDTHealthTrackRx at LabPortTRICHOMONAS VAGINALISNot Dqrstnib61.000 - 31.995 ppm01/21/2025 5:38 AM EDTHealthTrackRx at [facility] MYCOPLASMA OSPZRCXADU321.961 - 24.689 ppm01/21/2025 5:38 AM EDTHealthTrackRx at [facility] CenterMYCOPLASMA GENITALIUMNot Zppbornj69.961 - 24.689 ppm01/21/2025 5:38 AM EDTHealthTrackRx at [facility] CenterSpecimen (Source)Anatomical Location / LateralityCollection Method / VolumeCollection TimeReceived TimeTissue 01/20/2025 11:02 AM EDT1 1:53 AM EDT Narrative Authorizing ProviderResult TypeResult StatusPetty Baez NPLAB BLOOD ORDERABLESFinal ResultPerforming OrganizationAddressCity/State/ZIP CodePhone Number [facility] [address] [address] * IGP,APTIMA HPV,AGE GDLN (01/20/2025 10:00 AM [...] at: 01 =G ?[facility] [address] [place] ??[phone] ?? She Matthews MD, IGP, RFX APTIMA HPV ASCUNote.TBHComment: ?? TESTS ? RESULT ??FLAG ??UNITS ?REF RANGE ??LAB DIAGNOSIS: ?02 ?? NEGATIVE FOR INTRAEPITHELIAL LESION OR MALIGNANCY. Specimen adequacy: ?02 ?? Satisfactory for evaluation. No endocervical component is identified. Performed by: ? 02 ?? Nomi Carr Charrer ([facility]) . ? 02 Note: ? Note ?02 [...] Low,>-Panic High,A-Abnormal,AA-Critical Abnormal Performed at: 02 WB ?[facility] ?? [address] [place] ??[phone] ?? She Matthews MD, Performed at: ??=G - [facility] [address] [phone] Hydraulic Controls Technician: She Matthews MD, Phone: ??[phone] Performed at: ??WB - [facility] [address] [facility] [phone] Hydraulic Controls Technician: She Matthews MD, Phone: ??[phone] Specimen (Source)Anatomical Location / LateralityCollection Method / Volume Collection TimeReceived Time01/20/2025 10:00 AM EDT1 6:57 AM EDT Narrative [facility] - 01/27/2025 8:12 PM EDT SPATULA-ALONE CERVIX Authorizing ProviderResult TypeResult StatusKristina Sasha NPLAB BLOOD ORDERABLESFinal ResultPerforming OrganizationAddressCity/State/ZIP CodePhone Number [facility] * US OB CERVICAL LENGTH (01/20/2025 9:53 AM EDT)Anatomical RegionLaterality ModalityOtherSpecimen (Source)Anatomical Location / LateralityCollection Method / VolumeCollection TimeReceived Time01/20/2025 9:53 AM EDT Narrative 01/20/2025 9:56 AM EDT [facility] ?[address] ? [place] [address] ? Ultrasound Report ? Signed ? Patient: MARTINEZ,GRETEL A ? MR#: [id number] ?? : 2000 ?Acct:[id number] ?? Age/Sex: 24 / F ?ADM Date: 01/20/25 ?? Loc: US ? Attending Dr: Petty Baez ? Ordering Physician: Petty Baez ?? Date of Service: 01/20/25 ?? Procedure(s): US OB cervical length ?? Accession Number(s): [id number] ? cc: Petty Baez; Tracy Quesada D.O. ? [facility] ? [address] ? [place] [address] ? Patient Name: ?? GRETEL A MARTINEZ ? MRN: [facility]:[id number] ? date: 2000 ?Sex: F ?? Assigned Patient Location: US ?? Current Patient Location: US ?? Accession/Order Number: [id number] ?? Exam Date: 01/20/2025 ??08:43 ?Report Date: [...] 4 extremities ?? were surveyed by the senior network security engineer and no abnormalities were detected. ??The ?? [...] M.D. ??01/20/2025 9:53 AM ? Dictation Location: [place] [address] ? Electronically authenticated by: [id number] ??Y ?? Date: 01/20/2025 ??09:53 ? Dictated By: ?Brenda Gibbs M.D. ? Signed By: ?01/20/25 0956 ? DD/ 0953 ? TD/TT: ? Compression Molding Machine Tender: Procedure Note Radiology, Radiologist, - 01/20/20[address] [place] [address] Ultrasound Report Signed Patient: GRETEL MARTINEZ AMR#: [id number] : 2000Acct:[id number] Age/Sex: 24 / FADM Date: 01/20/25 Loc: US Attending Dr: Petty Baez Ordering Physician: Petty Baez Date of Service: 01/20/25 Procedure(s): US OB cervical length Accession Number(s): [id number] cc: Petty Baez; Tracy Quesada D.O. The [place] [address] Patient Name: GRETEL MARTINEZ MRN: [id number] date: 2000 Sex: F Assigned Patient Location: US Current Patient Location: US Accession/Order Number: [id number] Exam Date: 01/20/2025 08:43 Report Date: 01/20/2025 [...] and all 4extremities were surveyed by the senior network security engineer and no abnormalities were detected. The stomach, [...] Gibbs M.D. 01/20/2025 9:53 AM Dictation Location: [place] [address] Electronically authenticated by: [id number] Y Date: 9:53 Dictated By: Brenda Gibbs M.D. Signed By:01/20/25 0956 DD/ 0953 TD/TT: Compression Molding Machine Tender: Authorizing ProviderResult TypeResult StatusPetty Baez NPCLINISYNC IMAGING Final Result * OB ANATOMY (01/20/2025 9:53 AM EDT)Anatomical RegionLateralityModalityOther Specimen (Source)Anatomical Location / LateralityCollection Method / Volume Collection TimeReceived Time01/20/2025 9:53 AM EDT Narrative 01/20/2025 9:56 AM EDT [facility] ?[address] ? [place] [address] ? Ultrasound Report ? Signed ? Patient: GRETEL MARTINEZ ? MR#: [id number] ?? : 2000 ?Acct:[id number] ?? Age/Sex: 24 / F ?ADM Date: 01/20/25 ?? Loc: US ? Attending Dr: Petty Baez ? Ordering Physician: Petty Baez ?? Date of Service: 01/20/25 ?? Procedure(s): US OB anatomy ?? Accession Number(s): [id number] ? cc: Petty Baez; Tracy Quesada D.O. ? The [facility] ? [address] ? [place] [address] ? Patient Name: ?? GRETEL MARTINEZ ? MRN: [facility]:[id number] ? date: 2000 ?Sex: F ?? Assigned Patient Location: US ?? Current Patient Location: US ?? Accession/Order Number: [id number] ?? Exam Date: 01/20/2025 ??08:43 ?Report Date: [...] 4 extremities ?? were surveyed by the senior network security engineer and no abnormalities were detected. ??The ?? [...] M.D. ??01/20/2025 9:53 AM ? Dictation Location: [place] [address] ? Electronically authenticated by: [id number] ??Y ?? Date: 01/20/2025 ??09:53 ? Dictated By: ?Brenda Gibbs M.D. ? Signed By: ?01/20/25 0956 ? DD/ 0953 ? TD/TT: ? Compression Molding Machine Tender: Procedure Note Radiology, Radiologist, - 01/20/[address] [place] [address] Ultrasound Report Signed Patient: GRETEL MARTINEZ [facility]#: [id number] : 2000Acct:[id number] Age/Sex: 24 / FADM Date: 01/20/25 Loc: US Attending Dr: Petty Baez Ordering Physician: Petty Baez Date of Service: 01/20/25 Procedure(s): US OB anatomy Accession Number(s): [id number] cc: Petty Baez; Tracy Quesada D.O. The [address] [address] Patient Name: GRETEL MARTINEZ MRN: [id number] date: 2000 Sex: F Assigned Patient Location: US Current Patient Location: [place] Accession/Order Number: [id number] Exam Date: 01/20/2025 08:43 Report Date: 01/20/2025 [...] and all 4extremities were surveyed by the senior network security engineer and no abnormalities were detected. The stomach, [...] Gibbs M.D. 01/20/2025 9:53 AM Dictation Location: [place] [address] Electronically authenticated by: [id number] Y Date: 9:53 Dictated By: Brenda Gibbs M.D. Signed By:01/20/25 0956 DD/ TD/TT: Compression Molding Machine Tender: Authorizing ProviderResult TypeResult StatusPetty Baez NPCLINISYNC IMAGING Final Result * PAP TEST, EXTERNAL (01/20/2025 12:00 AM EDT) Narrative Authorizing ProviderResult TypeResult StatusFazio Nurse [facility] ObLAB CYTOLOGY ORDERABLESFinal ResultPerforming OrganizationAddressCity/State/ZIP CodePhone Number EXTERNAL LAB from Last 3 Months Insurance Care Teams Team MemberRelationshipSpecialtyStart DateEnd Date Tracy Quesada MD [address] [place] [phone] [facility]26[facility]
--- OUTSIDE RECORDS SUMMARY | 2025-04-18 12:41 | XMS_ITS | Clinical Summary ---
Author Organization [facility] Address [id number] [address] [place] [address] Care Team Providers Care Correction Lieutenant Name Role Phone Unavailable Primary Care Provider Unavailabl e Allergies No known active allergies Medications MedicationSigDispense QuantityRefillsLast FilledStart DateEnd DateStatus aspirin 81 mg Take 1 tablet (81 mg total) by mouth in the morning.Active ferrous sulfate 325 (65 FE) MG tablet Take 1 tablet (325 mg total) by mouth daily with breakfast.Active 115/iron/folic acid ( 19 ORAL) Take by mouth.Active Active Problems ProblemNoted DateDiagnosed DatePoor growth affecting management of mother in third skxfqyzzx39/10/2025Estimated Date of DeliveryCommentsYes 6Based on last menstrual period of 08/23/2024 Encounters DateTypeDepartmentCare MqzoThgbqitlebi77/18/2025Orders Only Maternal- Medicine at [facility] [address] [place] [phone] Chelsie Small LPN Poor growth affecting management of mother in third trimester, single or unspecified fetus (Primary Dx); Diet controlled gestational diabetes mellitus (GDM) in third ipabskudf96/17/2025 2:40 PM EST - 04/06/2025 11:59 PM ESTHospital Encounter [facility] US Imaging [address] [place] [phone] Poor growth affecting management of mother in third trimester, single or unspecified fetus; Diet controlled gestational diabetes mellitus (GDM) in third trimester Discharge Disposition: Home04/06/20254164Oqofir78/01/2025 2:30 PM ESTOffice Visit Maternal- Medicine at [facility] [address] [place] [address] Catrachito Bland MD Poor growth affecting management of mother in third trimester, single or unspecified fetus (Primary Dx)03/30/2025 12:41 PM EST - 03/30/2025 11:59 PM EST Hospital Encounter [facility] US Imaging [address] [place] [address] Screening, , for anatomic survey Discharge Disposition: Home03/30/2025Orders Only Maternal- Medicine at [facility] [address] [place] [address] Roslyn Stark RN Poor growth affecting management of mother in third trimester, single or unspecified fetus (Primary Dx); Diet controlled gestational diabetes mellitus (GDM) in third livkxtnzd96/10/2025 Muogfd5103/29/2025bstract Maternal- Medicine at [facility] [address] [place] [address] Catrachito Bland MD 03/11/2025bstract Maternal- Medicine at [facility] [address] [place] [address] External, Scanning Provider 03/10/2025 1:30 PM ESTSupport Visit Maternal- Medicine at [facility] [address] [place] [address] Shira Serna LD Diet controlled gestational diabetes mellitus (GDM) in third trimester (Primary Dx)03/10/2025Travelfrom Last 3 Months Social History Tobacco UseTypesPacks/DayYears UsedDateSmoking Tobacco: NeverSmokeless Tobacco: Never Tobacco Cessation:Counseling Given: Not Answered Alcohol UseStandard Drinks/WeekCommentsNot Currently0 (1 standard drink = 0.6 oz pure alcohol)PHQ-2AnswerDate RecordedTotal Guwdw636/10/2025AUDIT-CAnswerDate RecordedFrequency of Alcohol ConsumptionNot on file03/30/2025Q2: How many drinks containing alcohol do you have on a typical day when you are drinking?Patient does not drink03/30/2025Frequency of Binge DrinkingNot on file03/30/2025Hunger ScreeningAnswerDate RecordedWithin the past 12 months we worried whether our food would run out before we got money to buy more.Never True03/30/2025Within the past 12 months the food we bought just didn't last and we didn't have money to get more.Never True03/30/2025Estimated Date of DeliveryCommentsYes 05/30/2025ased on last menstrual period of 08/23/2024Sex and Gender Information ValueDate RecordedSex Assigned at BirthNot on fileLegal ZemUlwglh45/19/2025 1:40 PM ESTGender IdentityNot on fileSexual OrientationNot on file Last Filed Vital Signs Vital SignReadingTime TakenCommentsBlood Fqfogegm242/7703/30/2025 1:07 PM EST Butpz049303/30/2025 1:07 PM ESTTemperature--Respiratory Rate--Oxygen Saturation-- Inhaled Oxygen Concentration--Qewubg89.4 kg (201 lb 6.4 oz)03/30/2025 1:07 PM MCVMqwzop222.2 cm (5' 7.01 )03/30/2025 1:07 PM ESTBody Mass Index31.5403/30/2025 1:07 PM EST Plan of Treatment DateTypeDepartmentCare Team (Latest Contact Info)Kebmqlzpiej20/31/2025 11:00 AM ESTAppointOhioHealth [facility] [address] [place] [phone] 05/04/2025 3:30 PM ESTAppSelect [facility] [place] [facility] [address] [place] [address] Health MaintenanceDue DateLast DoneCommentsChlamydia Uknwxcttm98/18/2002Adult BMI Follow Up Plan2019Pap Smear2022Influenza Nfvqdcz3712/20/2024 01/26/2019, 05/29/2012, 03/13/2009RSV ( or age 60+ yrs) (1 - Risk 1-dose series)04/04/2025dult BMI Viepqaldv70 Depression Tyizxnclb93Tobacco Lwavmjwnp40 DTaP,Tdap and Td Vaccines (8 - Td or Tdap)/07/2023, 08/07/2023, 11/26/2013, Additional history exists Medical Devices Not on file Procedures Procedure NamePriorityDate/TimeAssociated DiagnosisCommentsUS MFM LMTD OB, 1 OR MORE UQFEUTccxwxn73/17/2025 3:08 PM EST Poor growth affecting management of mother in third trimester, single or unspecified fetus Diet controlled gestational diabetes mellitus (GDM) in third trimester US [facility] COMPREHENSIVE ANATOMIC OEAXMIMrdyyfn14/10/2025 2:43 PM EST Screening, , for anatomic survey SECOND HOUR GLUCOSE TOLERANCE 100 GM ASTPYsafqjx18/10/2025 GLUCOSE TOLERANCE, 3 MAIPRCxmemdt39/10/2025 GLUCOSE TOLERANCE, YGHDUXRVxzttsn68/10/2025 CBC (NO DIFF)Baxnvcn4002/23/2025 GLU 1H POST 50G CMUNRcbkxgf30/05/2025 from Last 3 Months Results * US [facility] LMTD OB, 1 OR MORE FETUS (04/06/2025 3:08 PM EST) Only the most recent of2 resultswithin the time period is included. Anatomical RegionLateralityModalityOB-GYNUltrasoundSpecimen (Source)Anatomical Location / LateralityCollection Method / VolumeCollection TimeReceived Time 04/06/2025 2:52 PM EST Narrative 04/06/2025 3:45 PM EST NAME: ??JUAN TO : 2000 SEX: F Accession Number: [id number] ORDERING PHYSICIAN: CATRACHITO BLAND REFERRING PHYSICIAN: DEMARCUS GRIMES Coding Procedures ? 05174: Ultrasound, uterus, real time with image documentation, limited one or more fetuses ? 38705: Doppler velocimetry, ; umbilical artery Indication IUGR-Poor growth, Gestational diabetes, Carrier for Alpha thalassemia . History OB History ? 2. Para 1 ? [id number] Current Cell free DNA ?low risk analysis [...] MVP measures 4.1 cm. Recommendations Please see [facility] recommendations from prior clinical and/or ultrasound [...] TO : 2000 SEX: F Accession Number: [id number] ORDERING PHYSICIAN: CATRACHITO BLAND REFERRING PHYSICIAN: DEMARCUS GRIMES Coding Procedures 19377: Ultrasound, uterus, real time with image documentation, limited one or more fetuses 88515: Doppler velocimetry, ; umbilical artery Indication IUGR-Poor growth, Gestational diabetes, Carrier for Alphathalassemia . History OB History 2. Para 1 K3V8F1P7 Current Cell free DNA low risk analysis [...] MVP measures 4.1 cm. Recommendations Please see [facility] recommendations from prior clinical and/or ultrasoundreport [...] with thepatient as necessary. Authorizing ProviderResult TypeResult StatusCatrachito Bland MDIMTheresa ORDERABLES Final Result * 2nd hr Glucose Tolerance 100 gm load (02/28/2025)ComponentValueRef RangeTest MethodAnalysis TimePerformed AtPathologist SignatureGlucose Tolerance Test 2 [id number] TRANSCRIBED RESULTSSpecimen (Source)Anatomical Location / LateralityCollection Method / VolumeCollection TimeReceived TimeBloodVenous blood / Unknown Narrative Authorizing ProviderResult TypeResult StatusNot In System Ref NintexLAB BLOOD ORDERABLESFinal ResultPerforming OrganizationAddressCity/State/ZIP CodePhone Number MANUALLY TRANSCRIBED RESULTS * Glucose tolerance, 3 hours (02/28/2025)ComponentValueRef RangeTest Method Analysis TimePerformed AtPathologist SignatureGlucose Tolerance Test 3 Qdiq528 MANUALLY TRANSCRIBED RESULTSSpecimen (Source)Anatomical Location / Laterality Collection Method / VolumeCollection TimeReceived TimeBloodVenous blood / Unknown Narrative Authorizing ProviderResult TypeResult StatusNot In System Ref NintexLAB BLOOD ORDERABLESFinal ResultPerforming OrganizationAddressCity/State/ZIP CodePhone Number MANUALLY TRANSCRIBED RESULTS * Glucose, tolerance fasting (02/28/2025)ComponentValueRef RangeTest Method Analysis TimePerformed AtPathologist SignatureGlucose Tolerance Test Fasting 110MANUALLY TRANSCRIBED RESULTSSpecimen (Source)Anatomical Location / LateralityCollection Method / VolumeCollection TimeReceived TimeBloodVenous blood / Unknown Narrative Authorizing ProviderResult TypeResult StatusNot In System Ref NintexLAB BLOOD ORDERABLESFinal ResultPerforming OrganizationAddressCity/State/ZIP CodePhone Number MANUALLY TRANSCRIBED RESULTS * Glucose 1h post 50g load (02/23/2025)ComponentValueRef RangeTest Method Analysis TimePerformed AtPathologist SignatureGlucose, 1 hr PP 50GM pjlu268 MANUALLY TRANSCRIBED RESULTSSpecimen (Source)Anatomical Location / Laterality Collection Method / VolumeCollection TimeReceived TimeBloodVenous blood / Unknown Narrative Authorizing ProviderResult TypeResult StatusNot In System Ref ProvLAB BLOOD ORDERABLESFinal ResultPerforming OrganizationAddressCity/State/ZIP CodePhone Number MANUALLY TRANSCRIBED RESULTS * CBC without diff (02/23/2025)ComponentValueRef RangeTest MethodAnalysis Time Performed AtPathologist RzavdfadzIobckcptrh38.5MANUALLY TRANSCRIBED RESULTS Jenecfqfrc92.3MANUALLY TRANSCRIBED RESULTSRbc Mcv (Fl) By Automated Count83.6 MANUALLY TRANSCRIBED JNFEMCIIsjcahdmy397RRZHODNZ TRANSCRIBED RESULTSSpecimen (Source)Anatomical Location / LateralityCollection Method / VolumeCollection TimeReceived TimeBloodVenous blood / Unknown Narrative Authorizing ProviderResult TypeResult StatusNot In System Ref ProvLAB BLOOD ORDERABLESFinal ResultPerforming OrganizationAddressCity/State/ZIP CodePhone Number MANUALLY TRANSCRIBED RESULTS from Last 3 Months Insurance
--- OUTSIDE RECORDS SUMMARY | 2025-04-18 12:41 | XMS_ITS | Encounter Summary ---
Author Organization [facility] Address [address] [place] [address] Care Team Providers Care Health Data Administrator Name Role Phone Tracy Quesada MD Primary Care Provider [phone] Encounter Details DateTypeDepartmentCare Team (Latest Contact Info)Iqcwogajrvk77/16/2025amboo flowsheet [facility] [address] [place] [address] [place] [address] Chelsie Peralta PA [address] [place] [address] Dr [place], [place] [address] Social History Tobacco UseTypesPacks/DayYears UsedDateSmoking Tobacco: NeverSmokeless Tobacco: NeverAlcohol UseStandard Drinks/WeekCommentsNot Currently0 (1 standard drink = 0.6 oz pure alcohol)Estimated Date of KvzwayisSlwztsyfHhe70/09/2026ased on last menstrual period of 08/23/2024Sex and Gender InformationValueDate Recorded Sex Assigned at BirthNot on fileLegal UaxTxyiqv46/15/2023 10:12 PM EDTGender IdentityNot on fileSexual OrientationNot on filedocumented as of this encounter Plan of Treatment DateTypeDepartmentCare Team (Latest Contact Info)Afcpkwfegyp91/30/2025 2:20 PM ESTRoutine [facility] [address] [place] [address] [place] [address] Chelsie Peralta PA [address] [place] [address] Dr [place], [facility]11 documented as of this encounter Visit Diagnoses Not on filedocumented in this encounter Care Teams Team MemberRelationshipSpecialtyStart DateEnd Date Tracy Quesada MD [address] [place] [phone] PCP - GeneralFamily Medicine11/26/23documented as of this encounter
--- OUTSIDE RECORDS SUMMARY | 2025-04-18 12:41 | XMS_ITS | Encounter Summary ---
Author Organization [facility] tem Address [id number] [address] [place] [address] Care Team Providers Care Capsule Machine Operator Name Role Phone Unavailable Primary Care Provider Unavailabl e Encounter Details DateTypeDepartmentCare Team (Latest Contact Info)Vlaqpavhjmo83/17/2025Travel Social History Tobacco UseTypesPacks/DayYears UsedDateSmoking Tobacco: NeverSmokeless Tobacco: NeverAlcohol UseStandard Drinks/WeekCommentsNot Currently0 (1 standard drink = 0.6 oz pure alcohol)PHQ-2AnswerDate RecordedTotal Ynsea37005/31/2024UDIT-CAnswer Date RecordedFrequency of Alcohol ConsumptionNot on file03/30/2025Q2: [...] Plan of Treatment DateTypeDepartmentCare Team (Latest Contact Info)Chsskvjtkzn82/31/2025 11:00 AM ESTAppointment [facility] [address] [place] [address] 05/04/2025 3:30 PM ESTAppointment [facility] Imaging [address] [place] [address] documented as of this encounter Visit Diagnoses Not on filedocumented in this encounter Additional Health Concerns AssessmentNoted TimePHQ-9 Depression Total Score: 2:17 PM EST documented as of this encounter
--- OUTSIDE RECORDS SUMMARY | 2025-04-18 12:41 | XMS_ITS | Encounter Summary ---
Author Organization [facility] Address [address] [place] [address] Care Team Providers Care Copyholder Name Role Phone Tracy Quesada MD Primary Care Provider [phone] Encounter Details DateTypeDepartmentCare Team (Latest Contact Info)Ntynnnqyegb77/18/2025bstract ME[facility] PICKETT [address] [place] [address] [place] [address] Yonas Gold DO [address] Lamont [place], [place] [address] Social History Tobacco UseTypesPacks/DayYears UsedDateSmoking Tobacco: NeverSmokeless Tobacco: NeverAlcohol UseStandard Drinks/WeekCommentsNot Currently0 (1 standard drink = 0.6 oz pure alcohol)Estimated Date of WkpvqoshJeulelnoTgu25/09/2026ased on last menstrual period of 08/23/2024Sex and Gender InformationValueDate Recorded Sex Assigned at BirthNot on fileLegal IkcIhmnxz02/15/2023 10:12 PM EDTGender IdentityNot on fileSexual OrientationNot on filedocumented as of this encounter Plan of Treatment DateTypeDepartmentCare Team (Latest Contact Info)Othbpdywucm07/30/2025 2:20 PM ESTRoutine MEHUL PICKETT [address] [facility] [place] [address] Chelsie Peralta PA [address] [place], [facility]11 documented as of this encounter Visit Diagnoses Not on filedocumented in this encounter Care Teams Team MemberRelationshipSpecialtyStart DateEnd Date Tracy Quesada MD [address] [place] [address] PCP - GeneralFamily Medicine11/26/23documented as of this encounter
--- OUTSIDE RECORDS SUMMARY | 2025-04-18 12:41 | XMS_ITS | Encounter Summary ---
Author Organization [employer] tem Address [id number] [address] [place] [address] Care Team Providers Care Regional Business Manager Name Role Phone Unavailable Primary Care Provider Unavailabl e Reason for Referral * Diagnostic Imaging (Routine) - Pending ReviewSpecialtyDiagnoses / Procedures Referred By ContactReferred To ContactMaternal and Medicine Diagnoses Poor growth affecting management of mother in third trimester, single or unspecified fetus Diet controlled gestational diabetes mellitus (GDM) in third trimester Procedures US MFM with or without consult Bertha Bryant MD [address] [place] [address] Phone: tel: fax: Maternal- Medicine at [address] [address] Phone: tel: fax: Referral IDStatusReasonStart DateExpiration DateVisits RequestedVisits [id number] [id number] Encounter Details DateTypeDepartmentCare Team (Latest Contact Info)Peiqrjcxmnk27/18/2025Orders Only Maternal- Medicine at [address] [phone] Chelsie Small, [employer] ARCHITECT Poor growth affecting management of mother in third trimester, single or unspecified fetus (Primary Dx); Diet controlled gestational diabetes mellitus (GDM) in third trimester Social History Tobacco UseTypesPacks/DayYears UsedDateSmoking Tobacco: NeverSmokeless Tobacco: NeverAlcohol UseStandard Drinks/WeekCommentsNot Currently0 (1 standard drink = 0.6 oz pure alcohol)PHQ-2AnswerDate RecordedTotal Okhnm56905/31/2024UDIT-CAnswer Date RecordedFrequency of Alcohol ConsumptionNot on file03/30/2025Q2: [...] Plan of Treatment DateTypeDepartmentCare Team (Latest Contact Info)Dhdxxtiikef52/31/2025 11:00 AM ESTAppointment [facility] Imaging [address] [place] [address] 05/04/2025 3:30 PM ESTAppointment [facility] US Imaging [address] [place] [address] NameTypePriorityAssociated DiagnosesOrder ScheduleUS [facility] with or without consult ImagingRoutine Poor growth affecting management of mother in third trimester, single or unspecified fetus Diet controlled gestational diabetes mellitus (GDM) in third trimester Expected: 04/07/2026 (Approximate), Expires: 07/06/2026documented as of this encounter Visit Diagnoses Diagnosis Poor growth affecting management of mother in third trimester, single or unspecified fetus- Primary Diet controlled gestational diabetes mellitus (GDM) in third trimester documented in this encounter Additional Health Concerns AssessmentNoted TimePHQ-9 Depression Total Score: 2:17 PM EST documented as of this encounter
--- OUTSIDE RECORDS SUMMARY | 2025-04-18 12:41 | XMS_ITS | Encounter Summary ---
Author Organization [facility] Address [address] [place] [address] Care Team Providers Care Prevention Rn Name Role Phone Tracy Quesada MD Primary Care Provider [phone] Encounter Details DateTypeDepartmentCare Team (Latest Contact Info)Vvnkwjwebha30/22/2025linisync Result Encounter [facility] External Department Unsolicited Toshia Baez, GENA [address] [place] [address] Social History Tobacco UseTypesPacks/DayYears UsedDateSmoking Tobacco: NeverSmokeless Tobacco: NeverAlcohol UseStandard Drinks/WeekCommentsNot Currently0 (1 standard drink = 0.6 oz pure alcohol)Estimated Date of BmkwtghmNdmizeznZps17/09/2026ased on last menstrual period of 08/23/2024Sex and Gender InformationValueDate Recorded Sex Assigned at BirthNot on fileLegal CvvQkxvjt59/15/2023 10:12 PM EDTGender IdentityNot on fileSexual OrientationNot on filedocumented as of this encounter Plan of Treatment DateTypeDepartmentCare Team (Latest Contact Info)Bpznhbimfwa26/30/2025 2:20 PM ESTRoutine [facility] Juan Luis OBLIN [address] [place] [address] Chelsie Peralta PA [address] [place], [facility]11 documented as of this encounter Procedures Procedure NamePriorityDate/TimeAssociated DiagnosisCommentsUS OB BPP W NON-YJNKBK6704/11/2025 1:07 PM EST documented in this encounter Results * US OB BPP W NON-STRESS (04/11/2025 1:07 PM EST)Anatomical Region LateralityModalityOtherSpecimen (Source)Anatomical Location / Laterality Collection Method / VolumeCollection TimeReceived Time04/11/2025 1:07 PM EST Narrative 04/11/2025 1:10 PM EST [facility] ?[address] ? [place] [address] ? Ultrasound Report ? Signed ? Patient: MARTINEZ,YOUSUF A ? MR#: [id number] ?? : 2000 ?Acct:[id number] ?? Age/Sex: 24 / F ?ADM Date: 04/11/25 ?? Loc: [facility] ??250-1 ? Attending Dr: Toshia Baez ? Ordering Physician: Toshia Baez ?? Date of Service: 04/11/25 ?? Procedure(s): US OB BPP w non-stress ?? Accession Number(s): [id number] ? cc: Toshia Baez; Physician,Non-Staff M.D. ? [facility] ? [address] ? [place] [address] ? Patient Name: ?? YOUSUF A MARTINEZ ? MRN: [facility]:[id number] ? date: 2000 ?Sex: F ?? Assigned Patient Location: [facility] ?? Current Patient Location: [facility] ?? Accession/Order Number: [id number] ?? Exam Date: 04/11/2025 ??12:46 ?Report Date: 04/11/2025 ??13:07 ? At the request of: ?? TOSHIA ??BEBETO ? Procedure: ??US OB BPP w non-stress [...] Dictation Location: RADIO-PC-30 ? Electronically authenticated by: [id number] ??Y ?? Date: 04/11/2025 ??13:07 ? Dictated By: ?Brenda Gibbs M.D. ? Signed By: ?12/22/25 1310 ? DD/ 1307 ? TD/TT: ? Registered Nurse Renal: Procedure Note Radiology, Radiologist, MD - 04/11/2025 [place] [address] Ultrasound Report Signed Patient: YOUSUF MARTINEZ [facility]#: [id number] : 2000Acct:[id number] Age/Sex: 24 / FADM Date: 04/11/25 Loc: [facility] 250-[address]: Toshia Baez Ordering Physician: Toshia Baez Date of Service: 04/11/25 Procedure(s): OB BPP w non-stress Accession Number(s): [id number] cc: Toshia Baez; Physician,Non-Staff M.DEva The [address] [address] Patient Name: YOUSUF MARTINEZ MRN: [facility]:[id number] date: 2000 Sex: F Assigned Patient Location: [facility] Current Patient Location: [facility] Accession/Order Number: [id number] Exam Date: 04/11/2025 12:46 Report Date: 04/11/2025 13:07 At the request of: TOSHIA BAEZ Procedure: [...] Gibbs M.D. 04/11/2025 1:07 PM Dictation Location: [place] [address] Electronically authenticated by: [id number] Y Date: 3:07 Dictated By: Brenda Gibbs M.D. Signed By:04/11/25 1310 DD/ 1307 TD/TT: Registered Nurse Renal: Authorizing ProviderResult TypeResult StatusToshia Baez NPCLINISYNC IMAGING Final Result documented in this encounter Visit Diagnoses Not on filedocumented in this encounter Care Teams Team MemberRelationshipSpecialtyStart DateEnd Date Tracy Quesada MD [address] [place] [address] PCP - GeneralFamily Medicine11/26/23documented as of this encounter
--- OUTSIDE RECORDS SUMMARY | 2025-04-18 12:42 | XMS_ITS | Encounter Summary ---
Author Organization [facility] Address [address] [place] [address] Care Team Providers Care Charge Loader Name Role Phone Tracy Quesada MD Primary Care Provider [phone] Encounter Details DateTypeDepartmentCare Team (Latest Contact Info)Glkfequeind27/15/2025linisync Result Encounter [facility] External Department Unsolicited Toshia Baez, GENA [address] [place] [address] Social History Tobacco UseTypesPacks/DayYears UsedDateSmoking Tobacco: NeverSmokeless Tobacco: NeverAlcohol UseStandard Drinks/WeekCommentsNot Currently0 (1 standard drink = 0.6 oz pure alcohol)Estimated Date of TthzrvttIkssuvmdDls87/09/2026ased on last menstrual period of 08/23/2024Sex and Gender InformationValueDate Recorded Sex Assigned at BirthNot on fileLegal EpdJmxbrl89/15/2023 10:12 PM EDTGender IdentityNot on fileSexual OrientationNot on filedocumented as of this encounter Plan of Treatment DateTypeDepartmentCare Team (Latest Contact Info)Pumaqxjrwom42/30/2025 2:20 PM ESTRoutine [facility] Juan Luis OBLIN [address] [place] [address] Chelsie Peralta PA [address] [place], [facility]11 documented as of this encounter Procedures Procedure NamePriorityDate/TimeAssociated DiagnosisCommentsUS OB BPP W NON-LOAODG8704/04/2025 1:12 PM EST documented in this encounter Results * US OB BPP W NON-STRESS (04/04/2025 1:12 PM EST)Anatomical Region LateralityModalityOtherSpecimen (Source)Anatomical Location / Laterality Collection Method / VolumeCollection TimeReceived Time04/04/2025 1:12 PM EST Narrative 04/04/2025 1:15 PM EST [facility] ?[address] ? [place] [address] ? Ultrasound Report ? Signed ? Patient: MARTINEZ,YOUSUF A ? MR#: [id number] ?? : 2000 ?Acct:[id number] ?? Age/Sex: 24 / F ?ADM Date: 04/04/25 ?? Loc: [facility] ??250-1 ? Attending Dr: Toshia Baez ? Ordering Physician: Toshia Baez ?? Date of Service: 04/04/25 ?? Procedure(s): US OB BPP w non-stress ?? Accession Number(s): [id number] ? cc: Toshia Baez; Physician,Non-Staff M.D. ? [facility] ? [address] ? [place] [address] ? Patient Name: ?? YOUSUF MARTINEZ ? MRN: [facility]:[id number] ? date: 2000 ?Sex: F ?? Assigned Patient Location: [facility] ?? Current Patient Location: [facility] ?? Accession/Order Number: [id number] ?? Exam Date: 04/04/2025 ??12:48 ?Report Date: [...] Dictation Location: RADIO-PC-30 ? Electronically authenticated by: [id number] ??Y ?? Date: 04/04/2025 ??13:12 ? Dictated By: ?Brenda Gibbs M.D. ? Signed By: ?12/15/25 1315 ? DD/ 1312 ? TD/TT: ? Manager Clinical: Procedure Note Radiology, Radiologist, - 04/04/2025 [place] [address] Ultrasound Report Signed Patient: YOUSUF MARTINEZ [facility]#: [id number] : 2000Acct:[id number] Age/Sex: 24 / FADM Date: 04/04/25 Loc: [facility] 250-[address]: Toshia Baez Ordering Physician: Toshia Baez Date of Service: 04/04/25 Procedure(s): OB BPP w non-stress Accession Number(s): [id number] cc: Toshia Baez; Physician,Non-Staff M.DEva The [place] [id number] Patient Name: YOUSUF MARTINEZ MRN: [facility]:[id number] date: 2000 Sex: F Assigned Patient Location: [facility] Current Patient Location: [facility] Accession/Order Number: [id number] Exam Date: 04/04/2025 12:48 Report Date: 04/04/2025 [...] Gibbs M.D. 04/04/2025 1:12 PM Dictation Location: [employer] Electronically authenticated by: [id number] Y Date: 3:12 Dictated By: Brenda Gibbs M.D. Signed By:04/04/25 1315 DD/ 1312 TD/TT: Manager Clinical: Authorizing ProviderResult TypeResult StatusKristina Sasha NPCLINISYNC IMAGING Final Result documented in this encounter Visit Diagnoses Not on filedocumented in this encounter Care Teams Team MemberRelationshipSpecialtyStart DateEnd Date Tracy Quesada MD [address] [place] [phone] PCP - GeneralFamily Medicine11/26/23documented as of this encounter
--- OUTSIDE RECORDS SUMMARY | 2025-04-18 12:42 | XMS_ITS | Patient Health Record ---
Author Organization [facility] Address [address] [place] [address] Care Team Providers Care Grades 9 Thru 12 Visiting Teacher Name Role Phone Mandy Ag Primary Care Provider Reason For Referral No Information Plan Of Treatment No Information Insurance Providers Payer Name Payer Address Payer Phone Subscriber Number Group Number Insured Name Patient Relationship to Insured Coverage Start Date Coverage End Date CareSource [place] Medicaid [address] [place] [address] [id number] Landry MARTINEZlf - patient is the [id number] 2022Wrap [facility] CareSourcePO [address] [place] [id number], NAYELISelf - patient is the [id number] 2022ental [employer] [place] [address] [place] [id number], NAYELISelf - patient is the [id number] 2022ental [employer] [facility] CareSourcePO [address] [place] [address] [id number], NAYELISelf - patient is the insured 2022
[2025-04-18 12:44] VITALS: BP 115/58; PULSE 100
--- NOTE | 2025-04-18 12:49 | US_ITS ---
[place] [address] Patient Name: YOUSUF MARTINEZ MRN: [facility]:[id number] date: 2000 Sex: F Assigned Patient Location: Current Patient Location: Accession/Order Number: [id number] Exam Date: 04/18/2025 13:09 Report Date: 04/19/2025 00:28 At the request of: TOSHIA TATE Procedure: US OB BPP w non-stress US OB BPP w non-stress 04/18/2025 1:39 PM SIGNS AND SYMPTOMS: ^Oligohydramnios PROTOCOL: Transabdominal sonographic images of the gravid uterus COMPARISON: None FINDINGS: Estimated gestational age: 34 weeks 0 days heart rate: 145 bpm. Amniotic fluid index: 6.45 cm. The deepest vertical pocket measures 3.03 cm. Biophysical profile: breathing movements: 2/2 Gross body movements: 2/2 tone: 2/2 Qualitative amniotic fluid volume: 2/2 US/US OB BPP w non-stress IMPRESSION: Biophysical profile score: 8/8 There is oligohydramnios with the amniotic fluid index measuring 6.5 cm placing the patient and the 5th percentile. Impression dictated by: Cam Hendrix M.D. 04/19/2025 12:28 AM Dictation Location: [facility] Electronically authenticated by: [id number] Y Date: 04/19/2025 00:28
== END 2025-04-18 13:35 | disposition home or self-care (01) ==
LOC: US 12:39 → FBC 12:42
PROVIDERS: Visit Provider Nurse Practitioner Family
DX: O41.03X0 Oligohydramnios, third trimester, not applicable or unspecified (principal); Z3A.34 34 weeks gestation of pregnancy
CPT/HCPCS: 76818